=== PATIENT | male | born 1960 | race Caucasian/White ===

== ENCOUNTER → 2020-02-08 08:58 | Outpatient (BNVA) | payer OTHER, SELFPAY | PROVIDERS: PCP Physician Assistant; Visit Provider Family Medicine Adult Medicine | DX: Z76.89 Persons encountering health services in other specified circumstances (principal) ==

== ENCOUNTER → 2020-03-21 08:26 | Outpatient (BNVA) | payer OTHER, SELFPAY | PROVIDERS: PCP Physician Assistant; Visit Provider Family Medicine Adult Medicine | DX: Z76.89 Persons encountering health services in other specified circumstances (principal) ==

== ENCOUNTER → 2020-05-04 08:30 | Outpatient (BNVA) | payer OTHER, SELFPAY | PROVIDERS: PCP Physician Assistant; Visit Provider Family Medicine Adult Medicine | DX: M19.012 Primary osteoarthritis, left shoulder (principal); M19.011 Primary osteoarthritis, right shoulder ==

== ENCOUNTER → 2020-05-29 14:35 | Outpatient (BNVA) | payer OTHER, SELFPAY | PROVIDERS: PCP Physician Assistant; Visit Provider Nurse Practitioner Family ==

== ENCOUNTER 2020-06-01 06:04 | Outpatient (REF) | payer OTHER, SELFPAY ==
[2020-06-01 07:24] LABS: Hematocrit 43.3 % (42-52); Hemoglobin 15.4 g/dl (14.0-18.0); Mean Corpuscular HGB Conc 35.6 g/dl (31.0-36.0); Mean Corpuscular Hemoglobin 34.5 pg (27.0-33.0); Mean Corpuscular Volume 96.9 fL (80-98); Mean Platelet Volume 11.5 fL (9.4-12.4); Platelet Count 205 X10*3/uL (160-400); Red Blood Count 4.47 X10*6/uL (4.60-5.80); Red Cell Distribution Width 12.9 % (11.0-16.0); White Blood Count 6.4 X10*3/uL (4.8-10.8)
[2020-06-01 08:02] LABS: Alanine Aminotransferase 40 U/L (0-40); Albumin Level 4.6 g/dL (3.5-5.0); Alkaline Phosphatase 81 U/L (39-117); Anion Gap 10 (12-20); Aspartate Amino Transferase 39 U/L (5-37); Bilirubin Total 0.9 mg/dL (0.0-1.0); Blood Urea Nitrogen 19 mg/dL (9-16); Calcium 9.5 mg/dL (8.4-10.2); Carbon Dioxide 28 mmol/L (22-29); Chloride 104 mmol/L (96-108); Cholesterol 177 mg/dL; Estimated Glomerular Filt Rate 43; Glucose Fasting 102 mg/dL (60-99); HDL Cholesterol 37 mg/dL; LDL Cholesterol Calculated 102 mg/dl; Potassium 4.4 mmol/L (3.3-5.1); Sodium 138 mmol/L (135-145); Total Protein 6.9 g/dL (6.5-8.0); Triglycerides 194 mg/dL
[2020-06-01 08:03] LABS: Microalbum/Creatinine Ratio Ur 6.1 ug/mg cr
[2020-06-01 08:16] LABS: Prostate Specific Antigen Scr 1.68 ng/mL (<0.05-4.0); TSH reflex Free T4 0.82 uIU/mL (0.32-4.0)
[2020-06-01 09:23] LABS: Estimated Average Glucose 94 mg/dL; Hemoglobin A1c % 4.9 %
== END 2020-06-01 06:05 | disposition home or self-care (01) ==
LOC: HO.LAB 06:04
PROVIDERS: PCP Physician Assistant; Visit Provider Physician Assistant
DX: I10 Essential (primary) hypertension (principal); E78.2 Mixed hyperlipidemia; Z12.5 Encounter for screening for malignant neoplasm of prostate
CPT/HCPCS: 36415; 80053; 80061; 82043; 83036; 84153; 84443; 85027

== ENCOUNTER → 2020-06-08 08:08 | Outpatient (BNVA) | payer OTHER, SELFPAY | PROVIDERS: PCP Physician Assistant; Visit Provider Family Medicine Adult Medicine | DX: M19.012 Primary osteoarthritis, left shoulder (principal); M19.011 Primary osteoarthritis, right shoulder ==

== ENCOUNTER 2020-06-27 07:58 | Day surgery (SDC) | payer OTHER, SELFPAY ==
--- NOTE | 2020-06-23 14:07 | HO.ANESPROP2 ---
Documented by User: Sanaz Harrell 06/23/20 14:09 HPI - Anesthesia Eval Consult details Narrative: 59yo M for Colonoscopy PMFSH Active Problems Active Problems: All Active Problems (Updated 06/21/20 @ 12:55 by Candie Iqbal) CEFERINO (generalized anxiety disorder) (Acute) HTN (hypertension) (Acute) Annual physical exam (Acute) HLD (hyperlipidemia) (Acute) Colon cancer screening (Acute) Arthritis of left shoulder region (Acute) Arthritis of right shoulder region (Acute) Past Medical History Medical History Anxiety Arthritis Arthritis of left shoulder region Arthritis of right shoulder region Elevated cholesterol Hx of renal cell cancer Family History Family History (Updated 05/29/20 @ 14:39 by ELIECER Cantu) Father Diabetes Heart problem Mother No problems noted. Paternal Grandfather Myocardial infarction Surgical History Surgical History History of left inguinal hernia repair History of nephrectomy History of shoulder surgery History of shoulder surgery History of vasectomy Hx of colonoscopy (~2010) Social History Social History (Updated 05/29/20 @ 14:40 by ELIECER Cantu) Alcohol intake: current Alcohol intake frequency: a few times a month Smoking Status: Current some day smoker Years Smoked: occasional cigar Use of substances other than those prescribed or required for medical reasons: No Advance Directives: Yes Advance Directives Information Provided: Yes Advance Directives on File: No Advance Directives Date on File: 06/27/20 Current occupational status: employed Current occupation: [email or web address] Allergies Allergy/AdvReac Type Severity Reaction Status Date / Time Penicillins [PENICILLINS] Allergy Intermediate RASH Verified 06/27/20 08:18 Home Medications Medication Instructions Recorded Confirmed Last Taken Type atorvastatin 80 mg tablet mg PO 02/08/20 05/10/20 Unknown History diphth,pertus(acell),tetanus 2.5 ml IM 02/08/20 05/10/20 Unknown History Lf unit-8 mcg-5 Lf/0.5mL IM syringe flu vacc [id number] 6mos up(PF) ml IM 02/08/20 05/10/20 Unknown History methotrexate sodium 2.5 mg tablet 20 mg PO QWEEK 02/08/20 06/21/20 Unknown History Exam Exam Date and Time: June 23, 2020 1407 Pertinent Lab Results Pertinent Lab Results: Laboratory Tests 06/01/20 06/01/20 06:18 06:18 WBC 6.4 Hgb 15.4 Hct 43.3 Plt Count 205 Sodium 138 Potassium 4.4 Chloride 104 Carbon Dioxide 28 BUN 19 H Creatinine 1.66 H Assessment and Plan Assessment Anesthesia Assessment: Chart Reviewed Documented by User: Keisha Anti 06/27/20 09:31 [facility] Past Medical History Medical History Anxiety Arthritis Arthritis of left shoulder region Arthritis of right shoulder region Elevated cholesterol Hx of renal cell cancer Family History Family History (Updated 05/29/20 @ 14:39 by ELIECER Cantu) Father Diabetes Heart problem Mother No problems noted. Paternal Grandfather Myocardial infarction Surgical History Surgical History History of left inguinal hernia repair History of nephrectomy History of shoulder surgery History of shoulder surgery History of vasectomy Hx of colonoscopy (~2010) Social History Social History (Updated 05/29/20 @ 14:40 by ELIECER Cantu) Alcohol intake: current Alcohol intake frequency: a few times a month Smoking Status: Current some day smoker Years Smoked: occasional cigar Use of substances other than those prescribed or required for medical reasons: No Advance Directives: Yes Advance Directives Information Provided: Yes Advance Directives on File: No Advance Directives Date on File: 06/27/20 Current occupational status: employed Current occupation: [email or web address] Allergies Allergy/AdvReac Type Severity Reaction Status Date / Time Penicillins [PENICILLINS] Allergy Intermediate RASH Verified 06/27/20 08:18 Home Medications Medication Instructions Recorded Confirmed Last Taken Type atorvastatin 80 mg tablet mg PO 02/08/20 05/10/20 Unknown History diphth,pertus(acell),tetanus 2.5 ml IM 02/08/20 05/10/20 Unknown History Lf unit-8 mcg-5 Lf/0.5mL IM syringe flu vacc [id number] 6mos up(PF) ml IM 02/08/20 05/10/20 Unknown History methotrexate sodium 2.5 mg tablet 20 mg PO QWEEK 02/08/20 06/21/20 Unknown History Exam Airway Mallampati Class: II TM Dist: >3cm Neck ROM: Full Loose/Missing/Broken Teeth: No Heart: RRR Lungs: CTA Assessment and Plan Assessment Anesthesia Assessment: Anesthesia Plan Discussed and Chart Reviewed Final Anesthetic Review NPO: Yes ASA Class: II Final Preanesthetic Review: Meds/Allgs Chart Reviewed, Consent Obtained/Reviewed and Anes Risks/Benef Reviewed Patient Risk: Low Procedure Risk: Low Anesthetic Plan Anesthetic Plan: MAC: Disposition: Standard PACU
[2020-06-27 08:13] VITALS: BMI 31.1
[2020-06-27 08:59] VITALS: BP 124/78; PULSE 88; RESP 16; TEMP 36.4; O2SAT 97
[2020-06-27] MEDS: Lactated Ringers 1,000 ML 100 ML IVCONT (09:16)
--- NOTE | 2020-06-27 09:24 | MHC.SHP ---
Pre-Procedural Eval Section B Chief Complaint: Screening Details of Present Illness: COLON CANCER SCREENING Relevant Family History (Specify if Yes): No Relevant Social History: None Present Medications: see Short Stay Collaborative assessment Medical History: Significant History (RENAL CA, HX NEPHROLITHIASIS-R) History of Previous Operations: Relevant previous surgery/procedure and date(s) (NEPHRECTOMY LEFT--6 YEARS AGO, RENAL CA, ) Allergies: Allergies Allergy/AdvReac Type Severity Reaction Status Date / Time Penicillins [PENICILLINS] Allergy Intermediate RASH Verified 06/27/20 08:18 Review of Systems Sugical H&P ROS: Negative: Constitution, Cardiovascular, Respiratory, Neurological, Psychiatric, Allergic/Immunologic, Gastrointestinal, Musculoskeletal and Endocrine and Yes, Specify: Genitourinary (SEE ABOVE) Exam Surgical H&P Exam: Normal: HEENT, Normal: Heart, Normal: Lungs, Normal: Extremities, Normal: Abdomen, Normal: Skin and Normal: Neurological Plan Diagnosis/Plan: Unchanged I have reviewed the history and physical and performed a pertinent physical examination on my patient. No changes have occurred unless specified.YES
--- NOTE | 2020-06-27 10:10 | MHC.SHP ---
Pre-Procedural Eval Section A The patient is an INPATIENT: No Changes since office visit: No Cold of Flu in the past 2 weeks, No New Medical Problems, No Changes in Medication and No Patient answered all questions The History & Physical has been completed within 30 days and I have reviewed it.: Yes Section B Chief Complaint: Screening Allergies: Allergies Allergy/AdvReac Type Severity Reaction Status Date / Time Penicillins [PENICILLINS] Allergy Intermediate RASH Verified 06/27/20 08:18 Plan I have reviewed the history and physical and performed a pertinent physical examination on my patient. No changes have occurred unless specified.
[2020-06-27 10:13] VITALS: BP 105/62; PULSE 69; RESP 18; TEMP 36.3; O2SAT 100
--- NOTE | 2020-06-27 10:13 | PM.OP ---
Brief Operative Note Date of Service: 06/27/20 Pre-op diagnosis: Colon cancer screening Post-op diagnosis: other (Normal colon, 1-2 + Internal Hemorrhoids) Procedure: COLONOSCOPY Implants: NONE Surgeon: Ines Lopez MD Anesthesia: MAC (MD LACEY) Estimated blood loss (mL): 0 Pathology: none sent Condition: stable Disposition: PACU
--- NOTE | 2020-06-27 10:25 | W.PM.OPN ---
Operative Note Operative Note Date of Service: 06/27/20 Narrative: Pre-op diagnosis: Colon cancer screening Post-op diagnosis: other (Normal colon, 1-2 + Internal Hemorrhoids) Procedure: COLONOSCOPY Implants: NONE Surgeon: Ines Lopez MD Anesthesia: MAC (MD LACEY) FINDINGS: KATHLEEN: TONE NORMAL, PROSTATE--ASYMETRICAL-Right lobe slight increase in size. no clear nodularity-soft, non tender. Adult slim colonoscope introduced with no difficulty. Advanced through sigmoid, descending, transverse colon. As I passed through hepatic flexure there was looping of the scope, extrinsic pressure was applied and scope entered into the cecum. Appendiceal orifice and ileocecal valve were seen. PREP: Good but increased residual fluid-1000cc flush and suctioning done with good visualization of the mucosa. No lesions were seen. ARV was clear. 1-2+ Internal Hemorrhoids were noted. Estimated blood loss (mL): 0 Pathology: none sent Condition: stable Disposition: PACU PLAN: REPEAT SCREENING IN 10 YEARS DUE TO ASYMETRY OF PROSTATE SUGGEST ON HIS NEXT VISIT TO UROLOGIST HAVE THEM RECHECK HIS PROSTATE.
[2020-06-27 10:26] VITALS: BP 105/66; PULSE 81; RESP 18; O2SAT 99
[2020-06-27 10:38] VITALS: PULSE 80; RESP 18; O2SAT 99
== END 2020-06-27 11:12 | disposition home or self-care (01) ==
PROVIDERS: PCP Physician Assistant; Visit Provider Internal Medicine Gastroenterology
PROC: 0DJD8ZZ Inspection of Lower Intestinal Tract, Via Natural or Artificial Opening Endoscopic (ICD-10-PCS; CPT 45378; principal; 2020-06-27 09:10)
DX: Z12.11 Encounter for screening for malignant neoplasm of colon (principal); K64.8 Other hemorrhoids; Z85.528 Personal history of other malignant neoplasm of kidney; Z90.5 Acquired absence of kidney; Z88.0 Allergy status to penicillin; F17.290 Nicotine dependence, other tobacco product, uncomplicated; Z79.899 Other long term (current) drug therapy
CPT/HCPCS: 45378

== ENCOUNTER → 2020-07-25 08:29 | Outpatient (BNVA) | payer OTHER, SELFPAY | PROVIDERS: PCP Physician Assistant; Visit Provider Family Medicine Adult Medicine | DX: M19.012 Primary osteoarthritis, left shoulder (principal); M19.011 Primary osteoarthritis, right shoulder ==

== ENCOUNTER → 2020-09-21 08:06 | Outpatient (BNVA) | payer OTHER, SELFPAY | PROVIDERS: PCP Physician Assistant; Visit Provider Family Medicine Adult Medicine | DX: M19.012 Primary osteoarthritis, left shoulder (principal); M19.011 Primary osteoarthritis, right shoulder ==

== ENCOUNTER 2020-11-13 09:44 | Outpatient (REF) | payer OTHER, SELFPAY ==
--- NOTE | ~2020-11-13 | XR_ITS ---
EXAMINATION: XR CHEST CLINICAL INFORMATION: Cough, shortness of breath and wheezing COMPARISON: None TECHNIQUE: 2 views of the chest were obtained. FINDINGS: The cardiac and mediastinal contours are normal. The lungs are clear. There is no pleural effusion or pneumothorax. There are degenerative changes of the spine. XR/XR chest 2V IMPRESSION: No evidence for acute disease in the chest.
== END 2020-11-13 09:45 | disposition home or self-care (01) ==
LOC: HO.HMGCX 09:44
PROVIDERS: PCP Physician Assistant; Visit Provider Hospitalist
DX: Z13.89 Encounter for screening for other disorder (principal)
CPT/HCPCS: 71046

== ENCOUNTER 2021-07-12 06:00 | Outpatient (REF) | payer OTHER, SELFPAY ==
--- NOTE | ~2021-07-12 | XR_ITS ---
EXAMINATION: XR CHEST CLINICAL INFORMATION: Acute pulmonary edema. COMPARISON: 11/13/2020 TECHNIQUE: 2 views of the chest were obtained. FINDINGS: No significant abnormality is noted involving the heart, lungs, mediastinum, bony thorax or soft tissues. Status post median sternotomy. There is spurring of the thoracic spine. XR/XR chest 2V IMPRESSION: No acute disease.
[2021-07-12 07:23] LABS: Hematocrit 39.8 % (42.0-52.0); Hemoglobin 13.1 g/dl (14.0-18.0); Mean Corpuscular HGB Conc 32.9 g/dl (31.0-36.0); Mean Corpuscular Volume 94.3 fL (80.0-98.0); Mean Platelet Volume 11.2 fL (9.4-12.4); Platelet Count 177 X10*3/uL (160-400); Red Blood Count 4.22 X10*6/uL (4.60-5.80); Red Cell Distribution Width 13.8 % (11.0-16.0)
[2021-07-12 07:48] LABS: Alanine Aminotransferase 30 U/L (0-40); Albumin Level 4.1 g/dL (3.5-5.0); Alkaline Phosphatase 108 U/L (39-117); Anion Gap 11 (12-20); Aspartate Amino Transferase 33 U/L (5-37); Bilirubin Total 0.5 mg/dL (0.0-1.0); Blood Urea Nitrogen 13 mg/dL (9-16); Calcium 9.8 mg/dL (8.4-10.2); Carbon Dioxide 28 mmol/L (22-29); Chloride 107 mmol/L (96-108); Cholesterol 164 mg/dL; Estimated Glomerular Filt Rate 49; Glucose Fasting 105 mg/dL (60-99); HDL Cholesterol 37 mg/dL; LDL Cholesterol Calculated 101 mg/dl; Potassium 4.6 mmol/L (3.3-5.1); Sodium 141 mmol/L (135-145); Total Protein 6.7 g/dL (6.5-8.0); Triglycerides 134 mg/dL
[2021-07-12 08:11] LABS: Prostate Specific Antigen Scr 0.94 ng/mL (<0.05-4.0); TSH reflex Free T4 0.99 uIU/mL (0.32-4.0)
[2021-07-12 10:41] LABS: Creatinine Urine 163.72 mg/dL
== END 2021-07-12 06:01 | disposition home or self-care (01) ==
LOC: HO.LAB 06:00
PROVIDERS: PCP Physician Assistant; Visit Provider Physician Assistant
DX: J81.0 Acute pulmonary edema (principal); I25.118 Atherosclerotic heart disease of native coronary artery with other forms of angina pectoris; I10 Essential (primary) hypertension; E78.2 Mixed hyperlipidemia; Z12.5 Encounter for screening for malignant neoplasm of prostate
CPT/HCPCS: 36415; 71046; 80053; 80061; 82043; 84153; 84443; 85027

== ENCOUNTER 2022-03-04 10:04 | Emergency (ER) | payer OTHER, SELFPAY ==
[2022-03-04 10:09] VITALS: BP 116/78; PULSE 77; RESP 18; TEMP 36.7; O2SAT 99; BMI 28.8
[2022-03-04 10:55] LABS: MANUAL DIFF FLAG NO
[2022-03-04 10:58] LABS: Basophils Percent Auto 0.4 % (0-2); Eosinophils Absolute Auto 0.2 X10*3/uL (0.0-0.4); Eosinophils Percent Auto 2.3 % (0-4); Hematocrit 32.1 % (42.0-52.0); Hemoglobin 10.7 g/dl (14.0-18.0); Imm Gran Abs Auto 0.11 X10*3/uL (0.00-0.03); Imm Gran Pct Auto 1.4 % (0.0-0.4); Lymphocytes Absolute Auto 1.6 X10*3/uL (1.2-4.9); Lymphocytes Percent Auto 20.5 % (20-40); Mean Corpuscular HGB Conc 33.3 g/dl (31.0-36.0); Mean Corpuscular Hemoglobin 30.9 pg (27.0-33.0); Mean Corpuscular Volume 92.8 fL (80.0-98.0); Mean Platelet Volume 10.5 fL (9.4-12.4); Monocytes Percent Auto 12.2 % (2-11); Neutrophils Absolute Auto 4.9 x10*3/uL (2.0-8.3); Neutrophils Percent Auto 63.2 % (45-73); Platelet Count 269 X10*3/uL (160-400); Red Blood Count 3.46 X10*6/uL (4.60-5.80); Red Cell Distribution Width 15.4 % (11.0-16.0); White Blood Count 7.8 X10*3/uL (4.8-10.8)
--- OUTSIDE RECORDS SUMMARY | 2022-03-04 10:59 | XMS_ITS | Continuity of Care Document ---
:1960 Author Organization [facility] Address [address] [place] [id number]- Care Team Providers Name Role Phone Franklin Thao Primary Care Physician Encounter [facility] Date(s): 03/01/19 - 03/01/[address] [address]- [facility] Attending Physician: Joshua Perez MD Allergies, Adverse Reactions, Alerts Substance Reaction Severity Status penicillins rash Active Medications CoQ10 = 300 mg, By Mouth, Daily, 0 Refills, Maintenance, 11/18/14 9:20:07 Start Date: 11/18/14 Status: OrderedFolic Acid Tablet 1 mg, By Mouth, Daily, Maintenance, 11/18/14 9:18:07 Start Date: 11/18/14 Status: Orderedmethotrexate 10 mg oral tablet 1 tablet = 10 mg, By Mouth, 2 times a day, once a week on tuesdays, 0 Refills, Maintenance, 159:17:07 Start Date: 11/18/14 Status: OrderedPercocet-10/325 oral tablet 1 tablet, By Mouth, 3 times a day, 0 Refills, Maintenance, 11/18/14 9:19:21 Start Date: 11/18/14 Status: Ordered Social History Social History Type Response Smoking Status Current some day smoker; Oth er: cigars on occasion; entered on: 04/15/16 Sex
--- OUTSIDE RECORDS SUMMARY | 2022-03-04 11:00 | XMS_ITS | Continuity of Care Document ---
:1960 Author Organization [facility] Address [address] [place] [id number]- Care Team Providers Name Role Phone Franklin Thao Primary Care Physician Encounter [facility] Date(s): 06/15/21 - 06/22/21 [facility] [address] [place] [address]- Attending Physician: Moses Banuelos MD Referring Physician: Alexis AGUILAR, Eran Gutierrez Allergies, Adverse Reactions, Alerts Substance Reaction Severity Status penicillins rash Active Medications amiodarone 200 mg oral tablet 200 mg, 1, tablet, By Mouth, Daily, # 30 tablet, Refills 0, Tot. Refills 0, Maintenance, 06/04/21 10:34:00 EDT, Route to Pharmacy Electronically, [facility], Partial fill upon patient request if the prescription is for a schedule II opio... Start Date: 06/04/21 Stop Date: 07/04/21 Status: Orderedaspirin 81 mg oral delayed release tablet 81 mg, 1, tablet, By Mouth, Daily, # 90 tablet, Refills 3, Tot. Refills 3, Maintenance, 04/09/21 9:45:00 EST, Route to Pharmacy Electronically, [facility], Partial fill upon patient request if the prescription is for a schedule II opioid nehemiah... Start Date: 04/09/21 Status: Orderedatorvastatin 80 mg oral tablet 1 tablet = 80 mg, By Mouth, Daily at bedtime, # 30 tablet, 0 Refills, Maintenance, 06/04/21 10:35:00EDT, Tablet, [facility], Partial fill upon patient request if the prescription is for a schedule II opioid drug., 183, cm, 06/04/21 7:31... Start Date: 06/04/21 Status: [id number] = 300 mg, By Mouth, Daily, 0 Refills, Maintenance, 11/18/14 9:20:07 Start Date: 11/18/14 Status: OrderedFolic Acid Tablet 1 mg, By Mouth, Daily, Maintenance, 11/18/14 9:18:07 Start Date: 11/18/14 Status: OrderedGlucosamine = 1,500 mg, By Mouth, Daily, 0 Refills, Maintenance, 05/21/21 15:42:00 EST, Partial fill upon patient request if the prescription is for a schedule II opioid drug. Start Date: 05/21/21 Status: Orderedmethotrexate 2.5 mg oral tablet See Instructions, Take 3 tablets (7.5mg) on Friday AM and 3 tablets (7.5mg) on Friday PM to equal 15mg total. In summer, increase to 10mg on Friday AM and 10mg on Friday PM., 0 Refills, Maintenance, 05/14/21 15:30:00 EST, Tablet, Partial fill upon p... Start Date: 05/14/21 Status: OrderedoxyCODONE 5 mg oral tablet 10 mg, 2, tablet, By Mouth, Every 6 hours, PRN, # 10 tablet, Refills 0, Tot. Refills 0, Maintenance,as needed for pain, 06/09/21 23:32:00 EDT, Route to Pharmacy Electronically, [facility]/pharmacy #[id number], Partial fill upon patient request if the prescription... Start Date: 06/09/21 Status: OrderedPlavix 75 mg oral tablet 75 mg, 1, tablet, By Mouth, Daily, # 30 tablet, Refills 0, Tot. Refills 0, Maintenance, 06/04/21 10:34:00 EDT, Route to Pharmacy Electronically, [facility], Partial fill upon patient request if the prescription is for a schedule II opioi... Start Date: 06/04/21 Status: OrderedToprol XL 50 mg oral tablet, extended release 50 mg, 1, tablet, By Mouth, Daily, # 30 tablet, Refills 0, Tot. Refills 0, Maintenance, 06/04/21 10:33:00 EDT, Route to Pharmacy Electronically, [facility], Partial fill upon patient request if the prescription is for a schedule II opioi... Start Date: 06/04/21 Status: Ordered Vital Signs Most recent to oldest [Reference Range]: 1 Height 183 cm (06/15/21 9:02 AM) Weight 98.5 kg (06/15/21 9:02 AM) Oxygen Saturation [94-100 %] 98 % (06/15/21 9:02 AM) Pulse Rate [55-90 bpm] 68 bpm (06/15/21 9:02 AM) Body Mass Index [18.5-24.99] 29.41 *H* (06/15/21 9:02 AM) Blood Pressure [90-138/55-84 mm Hg] 112/64 mm Hg (06/15/21 9:02 AM) Respiratory Rate [16-30 br/min] 18 br/min (06/15/21 9:02 AM) Mode of Delivery (Oxygen) Room air (06/15/21 9:02 AM) Blood pressure sites Arm, right (06/15/21 9:02 AM) Weight Obtained Via Patient/family stated (06/15/21 9:02 AM) Social History Social History Type Response Smoking Status Current some day smoker; Oth er: cigars on occasion; entered on: 04/15/16 Sex
--- OUTSIDE RECORDS SUMMARY | 2022-03-04 11:00 | XMS_ITS | Continuity of Care Document ---
:1960 Author Organization [facility] Address [address] [place] [address]- Care Team Providers Name Role Phone Franklin Thao Primary Care Physician Encounter [facility] [id number] Date(s): 04/24/21 - 05/24/21 [facility] [address] [place] [address]- Allergies, Adverse Reactions, Alerts Substance Reaction Severity Status penicillins rash Active Medications aspirin 81 mg oral delayed release tablet 81 mg, 1, tablet, By Mouth, Daily, # 90 tablet, Refills 3, Tot. Refills 3, Maintenance, 04/09/21 9:45:00 EST, Route to Pharmacy Electronically, [facility], Partial fill upon patient request if the prescription is for a schedule II opioid nehemiah... Start Date: 04/09/21 Status: Orderedatorvastatin 80 mg oral tablet 0.5 tablet = 40 mg, By Mouth, Daily, # 45 tablet, 3 Refills, Maintenance, 04/09/21 9:45:00 EST, [facility], 183, cm, 02/15/20 8:43:00 EST, Height, 110.9, kg, 02/15/20 8:43:00 EST, Dry Weight Start Date: 04/09/21 Status: [id number] = 300 mg, By Mouth, Daily, 0 [...] fill upon p... Start Date: 05/14/21 Status: Orderedmetoprolol 25 mg oral tablet, extended release 25 mg, 1, tablet, By Mouth, Daily, # 30 tablet, Refills 11, Tot. Refills 11, Maintenance, 05/11/21 10:07:00 EST, Route to Pharmacy Electronically, [facility]/pharmacy #[id number], Partial fill upon patient request if the prescription is for a schedule II opioid Start Date: 05/11/21 Status: Ordered Problem List Condition Effective Dates Status Health Status Informant Obese class I(Confirmed) Active Social History Social History Type Response Smoking Status Current some day smoker; Oth er: cigars on occasion; entered on: 04/15/16 Sex Male
--- OUTSIDE RECORDS SUMMARY | 2022-03-04 11:00 | XMS_ITS | Continuity of Care Document ---
:1960 Author Organization [facility] Address [address] [place] [id number]- Care Team Providers Name Role Phone Franklin Thao Primary Care Physician Encounter [facility] Date(s): 03/01/19 - 03/01/[address] [address]- [facility] Attending Physician: Vamshi Vazquez MD Allergies, Adverse Reactions, Alerts Substance Reaction [...]
--- OUTSIDE RECORDS SUMMARY | 2022-03-04 11:00 | XMS_ITS | Continuity of Care Document ---
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 fracture. Orbits and orbital hummel: No fracture of the orbital hummel. No intraorbital hematoma. Maxilla and alveolus: No fracture. Pterygoid plates: No fracture. Visualized parapharyngeal spaces: Symmetric without suspicious or acute abnormality. Zygomatic arches: No fracture. Mandible: The portions included on the exam are normal. No fracture or dislocation. CERVICAL SPINE: No fracture. No acute osseous abnormalities. Normal alignment. No locked or perched facet. Mild multilevel degenerative disc space narrowing and end plate irregularity. OTHER BONES: No acute abnormality. CERVICAL SOFT TISSUES AND LUNG APICES: Normal soft tissues. Visualized lung apices are clear. IMPRESSION: No acute osseous abnormality of the head, face, or cervical spine. Large scalp hematoma involving the left frontal bone, smaller hematoma involving the left frontal orbital region. I have personally reviewed the images and I agree with this report. WSN: [id number] Ordering Physician: Nayely Boland Dictated By: Prem[Radiology] Nataly AGUILAR Dictated Date/Time: 02/20/22 7:09 am Reviewed By: Jennifer Gonzalez MD Signed By: Jennifer Gonzalez MD Signed Date/Time: 02/20/22 7:14 am Transcribed By: PATSY Transcribed Date/Time: 02/20/22 3:[address] Abdomen and Pelvis W contrast IV [facility] , CIS S: TRANSCRIPatel Pedersen MD: VERIFY Prem[Radiology] Nataly AGUILAR: SIGN Event Display: Result: Authored Date: [id number] CT Chest W/ Contrast, CT Abd/Pelvis W/ IV Contrast Only INDICATION: Reason: Other:; Chest trauma, blunt; Clinical Question(s): Other:; Aortic hilar injury TECHNIQUE: Helical CT scan of the chest, abdomen, and pelvis with IV contrast, formatted in 3 planes. 100 cc of Omnipaque 300 was administered intravenously. This study was performed without oral contrast. Weight-based protocol was performed using automatic exposure control. CTDIvol Body: 17.30 mGy, DLP Body: 1345 mGy*cm. COMPARISON: None. FINDINGS: Side Laster view findings, lines and tubes: Endotracheal tube approximately 4.9 cm above the sergio. Enteric tube terminating at the GE junction. Central venous catheter present within the right femoral vein. Trachea and airways: Patent without evidence of tracheal or endobronchial lesion. Lungs and pleura: Groundglass opacity within the right upper lobe anterior segment. Bibasilar dependent groundglass and bandlike opacities likely representing atelectasis. Left upper lobe inferior lingular segment 0.7 cm nodule (image 48, series 205). No effusion or pneumothorax. Mediastinum and becky: No mass or hematoma. No mediastinal or hilar lymphadenopathy. No esophageal abnormality. No thyroid nodule large enough to warrant follow up. Heart: Heart is normal in size. No pericardial effusion. Severe coronary artery calcification. Coronary artery bypass changes. Aorta: Mild vascular calcification but no aneurysm. Pulmonary arteries: Normal caliber. Moderate respiratory motion artifact decreases sensitivity, but there is no evidence of pulmonary embolism on this study performed without angiographic technique. Chest wall soft tissues: No acute abnormality. Diaphragm: Intact. Liver: Normal in attenuation and morphology. No suspicious lesion. Gallbladder: No CT evidence of gallbladder pathology. Bile ducts: No biliary ductal dilation. Spleen: Normal in size. No traumatic injury. Pancreas: Minimal fat stranding at the pancreatic head and uncinate process. Adrenal glands: Likely postsurgical changes of the left adrenal gland. Unremarkable right adrenal. Kidneys and ureters: Status post left nephrectomy. A few small nodular densities noted in the left nephrectomy bed, some which may represent remnant vessels. No prior studies available for comparison. The right kidney and ureter are unremarkable. Bladder: No wall thickening or surrounding stranding. Reproductive organs: Unremarkable. Stomach, small bowel, and large bowel: Moderate stool retention. Otherwise, unremarkable small and large bowel. Appendix: Normal appendix. Peritoneum and retroperitoneum: Ill-defined fat stranding and increased thickness of the right hemidiaphragmatic lawrence in the periaortic region. Enlargement of the left psoas muscle likely representing intramuscular hematoma extending into the proximal iliac muscle. Scattered small foci of stranding wit hin the mesentery are suggestive of mild mesenteric injury (for example series 201 image 106, 110, 163, 187). No organized mesenteric or intraperitoneal hematoma. Paraspinal stranding likely representing hematoma surrounding the T10- T11 level and the T8 level. Lymph nodes: No enlarged lymph nodes. Blood vessels: Mild vascular calcifications but no aneurysm. No evidence of venous thrombosis. Abdominal and pelvic wall soft tissues: Extensive fat stranding of the mid anterior wall subcutaneous tissues. Left groin and proximal hip hematoma with maximum thickness 3.9 cm in the region of left groin and 2.1 cm in the lateral hip. There is hyperdensity within the hematoma (image 209, series 201)suggestive of active extravasation. Small hematoma in the proximal right thigh. Small amount of stranding, likely soft tissue contusion over the lateral right lower chest (series 201 image 77). Small bilateral fat-containing inguinal hernias. Small fat-containing umbilical hernia. Suspected hematoma surrounding the left antecubital fossa, which may be posttraumatic or related to IV placement. Bones: Transverse fracture through the inferior T10 vertebral body with distraction of the fracture fragments by approximately 0.8 cm. The fracture extends from the anterior cortex to the posterior cortex and extends into the intervertebral disc space. Streak artifact limits evaluation of spinal canal, however posterior disc bulge and facet arthropathy suggest at least moderate spinal canal stenosis at this level. Minimal anterior wedge deformity at T11 vertebral body with a zone of tubular impaction suggestive of compression fracture. Fractures of the left transverse processes of L1-L5 vertebral bodies. Minimally displaced fracture of the left posterior 11th rib. Minimally displaced right anterior fifth rib fracture. Mild asymmetric widening of the left sacroiliac joint with respect to the right, without clear cortical discontinuity (series 201 image 175). IMPRESSION: 1. Transverse fracture through the T10 vertebral body extending from the anterior to the posterior cortex and involving the intervertebral disc space with surrounding paraspinal hematoma and probable narrowing of the spinal canal at this level. Streak artifact limits density evaluation. Further evaluation with MR spine is recommended. 2. Large left groin, left hip hematoma with active extravasation. Additional soft tissue contusions/hematomas without active extravasation moderate to large extending from left to right across the anterior mid abdomen and small in the right lateral lower chest. 3. Left transverse process fractures of L1-L5 with associated enlargement of the left psoas muscle, likely representing retroperitoneal hematoma. 4. Fractures of the posterior right 11th rib and anterior right fifth rib. 5. Minimal anterior wedge deformity of T11 vertebral body. 6. Asymmetric widening of the left sacroiliac joint, concerning for partial separation without clearcortical discontinuity. Pubic symphysis appears well aligned. 7. Asymmetric thickening and stranding of the right hemidiaphragmatic lawrence, suspicious for diaphragmatic injury. 8. Scattered foci of stranding within the mesentery suspicious for mild mesenteric contusion. No large hematoma at this time. 9. Ground glass opacity within the right upper lobe anterior segment likely represents pulmonary contusion/hemorrhage. 10. Stranding in the left upper extremity surrounding the left antecubital fossa, which may be related to IV placement or trauma. Correlation with left elbow pain/tenderness is recommended and radiography could be considered. 11. Enteric tube terminating at the GE junction with a fluid distended stomach. Consider advancementby 10 cm. 12. Left upper lobe lingular segment 0.7 cm nodule. If low risk for malignancy, follow-up CT at 6-12months, then consider CT at 18-24 months and if unchanged no further follow-up. If high risk for malignancy, follow-up CT at 6-12 months, then CT at 18-24 months and if unchanged no further followup per Guidelines for Management of Incidental Pulmonary Nodules Detected on CT Images: From the Fleischner Society 2017. Preliminary results were discussed via telephone by Dr. Amaro with Dr. Ryan on 02/20/2022 4:08 AM. The final impression above - including the additional findings of widening of the left sacroiliac joint, concern for mesenteric injury, left antecubital fossa stranding, and more explicit concern for right hemidiaphragmatic injury - was relayed to Dr. Janey Treviño by Dr. Patel Disla over the phone on 02/20/2022 7:51 AM. I have personally reviewed the images and I agree with this report. WSN: [id number] Ordering Physician: Nayely Boland Dictated By: Prem[Radiology] Nataly AGUILAR Dictated Date/Time: 02/20/22 8:04 am Reviewed By: Patel Disla MD Signed By: Patel Disla MD Signed Date/Time: 02/20/22 8:09 am Transcribed By: PATSY Transcribed Date/Time: 02/20/22 5:[address] Chest W contrast IV [facility] , CIS S: TRANSCRIPatel Pedersen MD: VERIFY Prem[Radiology] , inder: SIGN Event Display: Result: Authored Date: [id number] CT Chest W/ Contrast, CT Abd/Pelvis W/ IV Contrast Only INDICATION: Reason: Other:; Chest trauma, blunt; Clinical Question(s): Other:; Aortic hilar injury TECHNIQUE: Helical CT scan of the chest, abdomen, and pelvis with IV contrast, formatted in 3 planes. 100 cc of Omnipaque 300 was administered intravenously. This study was performed without oral contrast. Weight-based protocol was performed using automatic exposure control. CTDIvol Body: 17.30 mGy, DLP Body: 1345 mGy*cm. COMPARISON: None. FINDINGS: Side Laster view findings, lines and tubes: Endotracheal tube approximately 4.9 cm above the sergio. Enteric tube terminating at the GE junction. Central venous catheter present within the right femoral vein. Trachea and airways: Patent without evidence of tracheal or endobronchial lesion. Lungs and pleura: Groundglass opacity within the right upper lobe anterior segment. Bibasilar dependent groundglass and bandlike opacities likely representing atelectasis. Left upper lobe inferior lingular segment 0.7 cm nodule (image 48, series 205). No effusion or pneumothorax. Mediastinum and becky: No mass or hematoma. No mediastinal or hilar lymphadenopathy. No esophageal abnormality. No thyroid nodule large enough to warrant follow up. Heart: Heart is normal in size. No pericardial effusion. Severe coronary artery calcification. Coronary artery bypass changes. Aorta: Mild vascular calcification but no aneurysm. Pulmonary arteries: Normal caliber. Moderate respiratory motion artifact decreases sensitivity, but there is no evidence of pulmonary embolism on this study performed without angiographic technique. Chest wall soft tissues: No acute abnormality. Diaphragm: Intact. Liver: Normal in attenuation and morphology. No suspicious lesion. Gallbladder: No CT evidence of gallbladder pathology. Bile ducts: No biliary ductal dilation. Spleen: Normal in size. No traumatic injury. Pancreas: Minimal fat stranding at the pancreatic head and uncinate process. Adrenal glands: Likely postsurgical changes of the left adrenal gland. Unremarkable right adrenal. Kidneys and ureters: Status post left nephrectomy. A few small nodular densities noted in the left nephrectomy bed, some which may represent remnant vessels. No prior studies available for comparison. The right kidney and ureter are unremarkable. Bladder: No wall thickening or surrounding stranding. Reproductive organs: Unremarkable. Stomach, small bowel, and large bowel: Moderate stool retention. Otherwise, unremarkable small and large bowel. Appendix: Normal appendix. Peritoneum and retroperitoneum: Ill-defined fat stranding and increased thickness of the right hemidiaphragmatic lawrence in the periaortic region. Enlargement of the left psoas muscle likely representing intramuscular hematoma extending into the proximal iliac muscle. Scattered small foci of stranding wit hin the mesentery are suggestive of mild mesenteric injury (for example series 201 image 106, 110, 163, 187). No organized mesenteric or intraperitoneal hematoma. Paraspinal stranding likely representing hematoma surrounding the T10- T11 level and the T8 level. Lymph nodes: No enlarged lymph nodes. Blood vessels: Mild vascular calcifications but no aneurysm. No evidence of venous thrombosis. Abdominal and pelvic wall soft tissues: Extensive fat stranding of the mid anterior wall subcutaneous tissues. Left groin and proximal hip hematoma with maximum thickness 3.9 cm in the region of left groin and 2.1 cm in the lateral hip. There is hyperdensity within the hematoma (image 209, series 201)suggestive of active extravasation. Small hematoma in the proximal right thigh. Small amount of stranding, likely soft tissue contusion over the lateral right lower chest (series 201 image 77). Small bilateral fat-containing inguinal hernias. Small fat-containing umbilical hernia. Suspected hematoma surrounding the left antecubital fossa, which may be posttraumatic or related to IV placement. Bones: Transverse fracture through the inferior T10 vertebral body with distraction of the fracture fragments by approximately 0.8 cm. The fracture extends from the anterior cortex to the posterior cortex and extends into the intervertebral disc space. Streak artifact limits evaluation of spinal canal, however posterior disc bulge and facet arthropathy suggest at least moderate spinal canal stenosis at this level. Minimal anterior wedge deformity at T11 vertebral body with a zone of tubular impaction suggestive of compression fracture. Fractures of the left transverse processes of L1-L5 vertebral bodies. Minimally displaced fracture of the left posterior 11th rib. Minimally displaced right anterior fifth rib fracture. Mild asymmetric widening of the left sacroiliac joint with respect to the right, without clear cortical discontinuity (series 201 image 175). IMPRESSION: 1. Transverse fracture through the T10 vertebral body extending from the anterior to the posterior cortex and involving the intervertebral disc space with surrounding paraspinal hematoma and probable narrowing of the spinal canal at this level. Streak artifact limits density evaluation. Further evaluation with MR spine is recommended. 2. Large left groin, left hip hematoma with active extravasation. Additional soft tissue contusions/hematomas without active extravasation moderate to large extending from left to right across the anterior mid abdomen and small in the right lateral lower chest. 3. Left transverse process fractures of L1-L5 with associated enlargement of the left psoas muscle, likely representing retroperitoneal hematoma. 4. Fractures of the posterior right 11th rib and anterior right fifth rib. 5. Minimal anterior wedge deformity of T11 vertebral body. 6. Asymmetric widening of the left sacroiliac joint, concerning for partial separation without clearcortical discontinuity. Pubic symphysis appears well aligned. 7. Asymmetric thickening and stranding of the right hemidiaphragmatic lawrence, suspicious for diaphragmatic injury. 8. Scattered foci of stranding within the mesentery suspicious for mild mesenteric contusion. No large hematoma at this time. 9. Ground glass opacity within the right upper lobe anterior segment likely represents pulmonary contusion/hemorrhage. 10. Stranding in the left upper extremity surrounding the left antecubital fossa, which may be related to IV placement or trauma. Correlation with left elbow pain/tenderness is recommended and radiography could be considered. 11. Enteric tube terminating at the GE junction with a fluid distended stomach. Consider advancementby 10 cm. 12. Left upper lobe lingular segment 0.7 cm nodule. If low risk for malignancy, follow-up CT at 6-12months, then consider CT at 18-24 months and if unchanged no further follow-up. If high risk for malignancy, follow-up CT at 6-12 months, then CT at 18-24 months and if unchanged no further followup per Guidelines for Management of Incidental Pulmonary Nodules Detected on CT Images: From the Fleischner Society 2017. Preliminary results were discussed via telephone by Dr. Amaro with Dr. Ryan on 02/20/2022 4:08 AM. The final impression above - including the additional findings of widening of the left sacroiliac joint, concern for mesenteric injury, left antecubital fossa stranding, and more explicit concern for right hemidiaphragmatic injury - was relayed to Dr. Janey Treviño by Dr. Patel Disla over the phone on 02/20/2022 7:51 AM. I have personally reviewed the images and I agree with this report. WSN: [id number] Ordering Physician: Nayely Boland Dictated By: Prem[Radiology] Nataly AGUILAR Dictated Date/Time: 02/20/22 8:04 am Reviewed By: Patel Disla MD Signed By: Patel Disla MD Signed Date/Time: 02/20/22 8:09 am Transcribed By: PATSY Transcribed Date/Time: 02/20/22 5:29 am XR Pelvis 1 or 2 Views [facility] , CIS S: TRANSCAlvaro Loomis MD: VERIFY Event Display: Result: Authored Date: [id number] Pelvis 1 or 2 Views INDICATION/CLINICAL QUESTION: Reason: Other:; Clinical Question(s): Other:. / Other: COMPARISON: None.. TECHNIQUE: AP pelvis. FINDINGS: There is no fracture or focal lesion of the bony pelvis. The sacroiliac joints show no gross abnormality. There is no fracture in the visualized parts of the femurs. The hip joints are grossly normal. No concerning soft tissue abnormality. IMPRESSION: 1. No bone or joint abnormality seen. WSN: [id number] Ordering Physician: Nayely Boland Dictated By: Alvaro Gauthier MD Dictated Date/Time: 02/20/22 8:31 am Reviewed By: Alvaro Gauthier MD Signed By: Alvaro Gauthier MD Signed Date/Time: 02/20/22 8:31 am Transcribed By: PATSY Transcribed Date/Time: 02/20/22 8:31 am Portable XR Chest Views [facility] , CIS S: TRANSCRIBE Daniel Kay MD T: RAFAEL Neely MD, Faisal Quinn: VERIFY Event Display: Result: Authored Date: [id number] Chest Portable Clinical Question(s): Trauma. COMPARISON: Correlation is made with same day CT chest with contrast, 2:29 AM. FINDINGS: LINES AND TUBES: Endotracheal tube with tip 7 cm above the sergio. Enteric tube coursing through the esophagus, crossing the left hemidiaphragm, and the tip likely terminating at the GE junction. LUNGS AND PLEURA: Low lung volumes. Lungs are otherwise clear with no consolidation. No pleural effusion. No pneumothorax. HEART, MEDIASTINUM AND BECKY: Heart is normal in size. Normal mediastinal and hilar contour. BONES AND SOFT TISSUES: No acute abnormality. Status post median sternotomy. IMPRESSION: Support lines and tubes as described above. No radiographic evidence of acute abnormality. I have personally reviewed the images and I agree with this report. WSN: [id number] Ordering Physician: Nayely Boland Dictated By: Daniel Kay MD Dictated Date/Time: 02/20/22 8:43 am Reviewed By: Faisal Neely MD, V Signed By: Faisal Neely MD, V Signed Date/Time: 02/20/22 8:48 am Transcribed By: PATSY Transcribed Date/Time: 02/20/22 8:39 [facility] , CIS S: TRANSCRIBE Faisal Neely MD, V: VERIFY Event Display: Result: Authored Date: [id number] Chest Portable Reason: Tube Placement COMPARISON: 02/20/2022 at 1:34 AM. FINDINGS: LINES AND TUBES: Endotracheal tube and enteric tube remain in place unchanged. There is a cervical collar appearing. LUNGS AND PLEURA: Low lung volumes. Clear lungs. Normal pulmonary vascularity. No pleural effusion. No pneumothorax. HEART, MEDIASTINUM AND BECKY: Heart is normal in size. Normal mediastinal and hilar contour. Status post median sternotomy. BONES AND SOFT TISSUES: T10 fracture noted on a CT scan of the chest is not well seen on this examination. IMPRESSION: No significant interval change except for addition of a c-collar. WSN: [id number] Ordering Physician: Hero Price Dictated By: Faisal Neely MD, V Dictated Date/Time: 02/20/22 12:15 p Reviewed By: Faisal Neely MD, V Signed By: Faisal Neely MD, V Signed Date/Time: 02/20/22 12:15 pm Transcribed By: PATSY Transcribed Date/Time: 02/20/22 12:13 pmSPowerscribe , CIS S: TRANSCRIBE Cornelio Choudhary DO: SIGN Gracie Hooper MD: VERIFY Event Display: Result: Authored Date: [id number] Chest Portable Reason: Tube Placement COMPARISON: Same day radiographs FINDINGS: LINES AND TUBES: Endotracheal tube unchanged overlying the thoracic inlet. Enteric tube terminating below the field of view likely within the stomach. LUNGS AND PLEURA: Clear lungs. Normal pulmonary vascularity. No pleural effusion. No pneumothorax. HEART, MEDIASTINUM AND BECKY: Heart is normal in size. Normal mediastinal and hilar contour. BONES AND SOFT TISSUES: T10 fracture noted on same-day CT is less conspicuous on this examination. IMPRESSION: Stable examination. I have personally reviewed the images and I agree with this report. WSN: [id number] Ordering Physician: Nanette Min Dictated By: Cornelio Choudhary DO Dictated Date/Time: 02/20/22 1:36 pm Reviewed By: Gracie Hooper MD Signed By: Gracie Hooper MD Signed Date/Time: 02/20/22 1:41 pm Transcribed By: PATSY Transcribed Date/Time: 02/20/22 1:21 pm XR Knee - left 1 or 2 Views [facility] , CIS S: TRANSCRIBE Faisal Neely MD, V: VERIFY Event Display: Result: Authored Date: [id number] Knee 1 or 2 Views Left, 2 views Reason: Other:; Clinical Question(s): Fracture COMPARISON: None. FINDINGS: There is no evidence of acute or healing fracture, dislocation or bone lesion. No arthritic changes. No osteochondral defects or intra-articular loose bodies. There may be soft tissue swelling anterior to the patella. IMPRESSION: No acute osseous abnormality is seen involving the left knee. WSN: [id number] Ordering Physician: Nayely Boland Dictated By: Faisal Neely MD, V Dictated Date/Time: 02/20/22 10:10 a Reviewed By: Faisal Neely MD, V Signed By: Faisal Neely MD, V Signed Date/Time: 02/20/22 10:10 am Transcribed By: PATSY Transcribed Date/Time: 02/20/22 10:09 am XR Elbow - left GE 3 Views [facility] , CIS S: TRANSCRIBE Faisal Neely MD, V: VERIFY Event Display: Result: Authored Date: [id number] Elbow Min 3 Views Left, 3 views Reason: Other:; Clinical Question(s): Fracture COMPARISON: None. FINDINGS: No fracture or dislocation. No arthritic changes. There is a small enthesophyte related to the olecranon. No joint effusion. There is moderate sized soft tissue swelling and/or hematoma in the lateral aspect of the left elbow. IMPRESSION: No definite acute osseous abnormality is seen involving the left elbow. The images were reviewed with the Dr. Patel Disla who agrees with the above interpretation. WSN: [id number] Ordering Physician: Nayely Boland Dictated By: Faisal Neely MD, V Dictated Date/Time: 02/20/22 10:52 a Reviewed By: Faisal Neely MD, V Signed By: Faisal Neely MD, V Signed Date/Time: 02/20/22 10:52 am Transcribed By: PATSY Transcribed Date/Time: 02/20/22 10:49 am XR Hand - right GE 3 Views [facility] , CIS S: Donnie Bonner MD: VERIFY Cornelio Choudhary DO: SIGN Event Display: Result: Authored Date: [id number] Forearm 2 Views Right, Hand 3 Views Right Reason: Trauma COMPARISON: None. FINDINGS: No acute displaced fracture. Corticated fragment in the dorsal wrist shows posterior to the carpal bones No soft tissue swelling. IMPRESSION: No acute fracture of the hand or forearm. I have personally reviewed the images and I agree with this report. WSN: [id number] Ordering Physician: Hero Price Dictated By: Cornelio Choudhary DO Dictated Date/Time: 02/20/22 1:23 pm Reviewed By: Donnie Solis MD Signed By: Donnie Solis MD Signed Date/Time: 02/20/22 1:28 pm Transcribed By: PATSY Transcribed Date/Time: 02/20/22 1:19 pm XR Radius and Ulna - right 2 Views [facility] , CIS S: TRANSCDonnie Alas MD: VERIFY Cornelio Choudhary DO: SIGN Event Display: Result: Authored Date: [id number] Forearm 2 Views Right, Hand 3 Views Right Reason: Trauma COMPARISON: None. FINDINGS: No acute displaced fracture. Corticated fragment in the dorsal wrist shows posterior to the carpal bones No soft tissue swelling. IMPRESSION: No acute fracture of the hand or forearm. I have personally reviewed the images and I agree with this report. WSN: [id number] Ordering Physician: Hero Price Dictated By: Cornelio Choudhary DO Dictated Date/Time: 02/20/22 1:23 pm Reviewed By: Donnie Solis MD Signed By: Donnie Solis MD Signed Date/Time: 02/20/22 1:28 pm Transcribed By: PATSY Transcribed Date/Time: 02/20/22 1:19 pm US.doppler Lower extremity vein - bilateral [facility] , CIS S: TRANSCMoshe Chakraborty MD: VERIFY Event Display: Result: Authored Date: [id number] US Doppler Ext Lower Venous Bilat Reason: Swelling Extremities COMPARISON: None IMAGING TECHNIQUE: Streamlined portable ultrasound of the lower extremity deep venous system was performed using grayscale, color, and spectral Doppler ultrasound from the common femoral through the popliteal vein assessing for complete compressibility and good response to compression and augmentation. The calf veins are not assessed. FINDINGS: RIGHT LOWER EXTREMITY: Common femoral vein: Patent. No thrombosis. Femoral vein: Patent. No thrombosis. Popliteal vein: Patent. No thrombosis. LEFT LOWER EXTREMITY: Common femoral vein: Patent. No thrombosis. Femoral vein: Patent. No thrombosis. Popliteal vein: Patent. No thrombosis. OTHER FINDINGS: IMPRESSION: No evidence of deep venous thrombosis from the groin through the popliteal vein. Calf veins not assessed with portable technique. WSN: [id number] Ordering Physician: Madhavi Leigh Dictated By: Moshe Busby MD Dictated Date/Time: 02/21/22 10:48 p Reviewed By: Moshe Busby MD Signed By: Moshe Busby MD Signed Date/Time: 02/21/22 10:48 pm Transcribed By: PATSY Transcribed Date/Time: 02/21/22 10:48 pm MR Lumbar spine WO contrast [facility] , CIS S: Ines Thomas MD N: VERIFY Event Display: Result: Authored Date: [id number] MRI Thoracic Spine W/O Contrast, MRI Lumbar Spine W/O Contrast Reason: Pain Trauma; Order Comment: Please see Reference Text for complete list of contraindications/ TECHNIQUE: MRI of the thoracic spine was performed without intravenous contrast utilizing sagittal T1, sagittal T2, sagittal STIR, axial T1, and axial T2- weighted sequences. MRI of the lumbar spine wasperformed without intravenous contrast utilizing sagittal T1, sagittal T2, sagittal STIR, axial T1, and axial T2-weighted sequences. COMPARISON: CT chest abdomen and pelvis 02/20/2022. MRI of the thoracic and lumbar spine dated 12/28/2014. FINDINGS: NUMBERING: Localizer sequence of the entire spine shows 7 cervical, 12 thoracic, and 5 lumbar type vertebral bodies. THORACIC SPINE: ALIGNMENT, VERTEBRAE, MARROW, AND DISCS: There is a fracture through the inferior endplate of T10 with widening of the anterior aspect of the intervertebral disc space and disruption of the anterior longitudinal ligament. There is minimal wedging of T11 but no convincing edema. Otherwise, vertebral body heights are preserved. Sagittal alignment is otherwise maintained. There is multilevel disc desiccation and mild loss of intervertebral disc height, and there are degenerative endplate osteophytes atmultiple levels with confluent bulky anterior endplate osteophytes. Multiple scattered hemangiomas. CORD: There is spinal cord compression at T10-T11 due to circumferential anterior wall in the epidural space which probably reflects hematoma in combination with the pre-existing degenerative changes at this level. No definite associated signal abnormality in the spinal cord. PARASPINAL TISSUES: There is edema adjacent to the facet joints at T10-T11, left greater than right,though no heidi disruption is present in the facet joints appear aligned. Prevertebral edema at thislevel. DETAILED FINDINGS BY LEVEL: Severe spinal canal narrowing at T10-T11 as above due to combination of disc protrusion, ligamentum flavum thickening, and suspected hemorrhage. There are a few other scattered small disc protrusions and there is multilevel facet arthropathy but no other level of significant canal or neural foraminal stenosis is demonstrated. LUMBAR SPINE: ALIGNMENT, VERTEBRAE, MARROW, AND DISCS: Left transverse process fractures from L1 through L5 is better seen on the CT. Vertebral body heights are maintained. There is multilevel degenerative endplate marrow signal change and loss of intervertebral disc height which is no stenosis at L4-L5. Sagittal alignment is maintained. Widening of the left sacroiliac joint, partially imaged. CONUS: The conus is normal in signal and contour, with normal level of termination at L1. PARASPINAL TISSUES: There is paraspinal edema on the left side and edema in the left psoas muscle and left paraspinal musculature compatible with trauma. DETAILED FINDINGS BY LEVEL: L1-L2: Minimal disc bulge. No significant canal stenosis or neural foraminal narrowing. L2-L3: Minimal disc bulge and facet arthropathy. No significant canal stenosis. Minimal bilateral neural foraminal narrowing. L3-L4: Diffuse disc bulge, ligamentum flavum thickening, and facet arthropathy. There is mild canal stenosis and mild bilateral neural foraminal narrowing. L4-L5: Diffuse disc bulge with ligamentum flavum thickening and facet arthropathy resulting in minimal spinal canal narrowing, mild to moderate right neural foraminal narrowing, and moderate left neural foraminal narrowing. L5-S1: Diffuse disc bulge with right lateral protrusion, ligamentum flavum thickening, and facet arthropathy. There is a new synovial cyst related to the left facet joint which extends into the lateralrecess encroachment left S1 nerve root. No significant canal stenosis. Minimal bilateral neural foraminal narrowing. Lateral disc protrusion abuts the right L5 nerve root. IMPRESSION: Fracture through the inferior endplate of T10 with disruption of the anterior longitudinal ligament,widening of the intervertebral disc space, and associated hematoma resulting in severe spinal canal stenosis with spinal cord compression. No definite associated spinal cord edema. Edema adjacent to the facet joints at T10-T11, left greater than right, without disruption of the facet joints could reflect soft tissue edema or injury to the joint capsule. Left L1-L5 transverse process fractures, is better seen on CT, with associated left psoas edema/hematoma and edema/injury to the left-sided posterior paraspinal musculature. Partially imaged widening of the left sacroiliac joint. New synovial cyst on the left at L5-S1 causing narrowing of the left lateral recess and crowding of the traversing left S1 nerve root. A critical result message (Red) has been communicated via the [employer] system on 02/22/2022 8:12 AM, Message ID [id number]. WSN: [id number] Ordering Physician: Nanette Min Dictated By: Ines Diggs MD Dictated Date/Time: 02/22/22 8:12 am Reviewed By: Ines Diggs MD Signed By: Ines Diggs MD Signed Date/Time: 02/22/22 8:12 am Transcribed By: PATSY Transcribed Date/Time: 02/22/22 8:04 am MR Thoracic spine WO contrast [facility] , INA S: TRANSCRIBE Ines Diggs MD: VERIFY Event Display: Result: Authored Date: [id number] MRI Thoracic Spine W/O Contrast, MRI Lumbar Spine W/O Contrast Reason: Pain Trauma; Order Comment: Please see Reference Text for complete list of contraindications/ TECHNIQUE: MRI of the thoracic spine was performed without intravenous contrast utilizing sagittal T1, sagittal T2, sagittal STIR, axial T1, and axial T2- weighted sequences. MRI of the lumbar spine wasperformed without intravenous contrast utilizing sagittal T1, sagittal T2, sagittal STIR, axial T1, and axial T2-weighted sequences. COMPARISON: CT chest abdomen and pelvis 02/20/2022. MRI of the thoracic and lumbar spine dated 12/28/2014. FINDINGS: NUMBERING: Localizer sequence of the entire spine shows 7 cervical, 12 thoracic, and 5 lumbar type vertebral bodies. THORACIC SPINE: ALIGNMENT, VERTEBRAE, MARROW, AND DISCS: There is a fracture through the inferior endplate of T10 with widening of the anterior aspect of the intervertebral disc space and disruption of the anterior longitudinal ligament. There is minimal wedging of T11 but no convincing edema. Otherwise, vertebral body heights are preserved. Sagittal alignment is otherwise maintained. There is multilevel disc desiccation and mild loss of intervertebral disc height, and there are degenerative endplate osteophytes atmultiple levels with confluent bulky anterior endplate osteophytes. Multiple scattered hemangiomas. CORD: There is spinal cord compression at T10-T11 due to circumferential anterior wall in the epidural space which probably reflects hematoma in combination with the pre-existing degenerative changes at this level. No definite associated signal abnormality in the spinal cord. PARASPINAL TISSUES: There is edema adjacent to the facet joints at T10-T11, left greater than right,though no heidi disruption is present in the facet joints appear aligned. Prevertebral edema at thislevel. DETAILED FINDINGS BY LEVEL: Severe spinal canal narrowing at T10-T11 as above due to combination of disc protrusion, ligamentum flavum thickening, and suspected hemorrhage. There are a few other scattered small disc protrusions and there is multilevel facet arthropathy but no other level of significant canal or neural foraminal stenosis is demonstrated. LUMBAR SPINE: ALIGNMENT, VERTEBRAE, MARROW, AND DISCS: Left transverse process fractures from L1 through L5 is better seen on the CT. Vertebral body heights are maintained. There is multilevel degenerative endplate marrow signal change and loss of intervertebral disc height which is no stenosis at L4-L5. Sagittal alignment is maintained. Widening of the left sacroiliac joint, partially imaged. CONUS: The conus is normal in signal and contour, with normal level of termination at L1. PARASPINAL TISSUES: There is paraspinal edema on the left side and edema in the left psoas muscle and left paraspinal musculature compatible with trauma. DETAILED FINDINGS BY LEVEL: L1-L2: Minimal disc bulge. No significant canal stenosis or neural foraminal narrowing. L2-L3: Minimal disc bulge and facet arthropathy. No significant canal stenosis. Minimal bilateral neural foraminal narrowing. L3-L4: Diffuse disc bulge, ligamentum flavum thickening, and facet arthropathy. There is mild canal stenosis and mild bilateral neural foraminal narrowing. L4-L5: Diffuse disc bulge with ligamentum flavum thickening and facet arthropathy resulting in minimal spinal canal narrowing, mild to moderate right neural foraminal narrowing, and moderate left neural foraminal narrowing. L5-S1: Diffuse disc bulge with right lateral protrusion, ligamentum flavum thickening, and facet arthropathy. There is a new synovial cyst related to the left facet joint which extends into the lateralrecess encroachment left S1 nerve root. No significant canal stenosis. Minimal bilateral neural foraminal narrowing. Lateral disc protrusion abuts the right L5 nerve root. IMPRESSION: Fracture through the inferior endplate of T10 with disruption of the anterior longitudinal ligament,widening of the intervertebral disc space, and associated hematoma resulting in severe spinal canal stenosis with spinal cord compression. No definite associated spinal cord edema. Edema adjacent to the facet joints at T10-T11, left greater than right, without disruption of the facet joints could reflect soft tissue edema or injury to the joint capsule. Left L1-L5 transverse process fractures, is better seen on CT, with associated left psoas edema/hematoma and edema/injury to the left-sided posterior paraspinal musculature. Partially imaged widening of the left sacroiliac joint. New synovial cyst on the left at L5-S1 causing narrowing of the left lateral recess and crowding of the traversing left S1 nerve root. A critical result message (Red) has been communicated via the [employer] system on 02/22/2022 8:12 AM, Message ID [id number]. WSN: [id number] Ordering Physician: Nanette Min Dictated By: Ines Diggs MD Dictated Date/Time: 02/22/22 8:12 am Reviewed By: Ines Diggs MD Signed By: Ines Diggs MD Signed Date/Time: 02/22/22 8:12 am Transcribed By: PATSY Transcribed Date/Time: 02/22/22 8:04 am XR Spine thoracolumbar junction 2 Views [facility] , CIS S: TRANSCRIBE Farnaz Jacob MD: VERIFY Event Display: Result: Authored Date: [id number] Thoracolumbar Spine 2 Views Reason: Other:; T10 fx, f u alignment s p clamshell brace; Special Instructions: Please obtain upright COMPARISON: MRI, 02/22/2022. CT, 02/20/2022. FINDINGS: The known fracture through the inferior endplate of T10 is faintly seen on the AP view, though is not well delineated on the lateral views. Displaced left L3 transverse process fracture noted. Other left lumbar transverse fracture is better seen on CT. Vertebral body heights are preserved. There is mild multilevel disc space narrowing with anterior osteophyte formation. No gross soft tissue abnormality. IMPRESSION: Horizontal fracture through the inferior endplate of T10 is only faintly seen. WSN: [id number] Ordering Physician: Madhavi Leigh Dictated By: Farnaz Jacob MD Dictated Date/Time: 02/22/22 1:03 pm Reviewed By: Farnaz Jacob MD Signed By: Farnaz Jacob MD Signed Date/Time: 02/22/22 1:03 pm Transcribed By: PATSY Transcribed Date/Time: 02/22/22 12:56 pm XR Foot - left GE 3 Views [facility] , CIS S: TRANSCRIBE Moshe Ibrahim MD: VERIFY Event Display: Result: Authored Date: [id number] Foot Min 3 Views Left, 3 views REASON: Trauma; Clinical Question(s): Fracture COMPARISON: None. FINDINGS: No fractures or bone lesions. Dorsal and plantar calcaneal spurs. No arthritic changes. Normal soft tissues. IMPRESSION: No evidence of acute osseous abnormality. WSN: [id number] Ordering Physician: Sharmin Khan Dictated By: Moshe Ibrahim MD Dictated Date/Time: 03/01/22 10:12 a Reviewed By: Moshe Ibrahim MD Signed By: Moshe Ibrahim MD Signed Date/Time: 03/01/22 10:12 am Transcribed By: PATSY Transcribed Date/Time: 03/01/22 10:11 am Patient Care team information Care Team PersonnelName: Geeta Lassiter RN Position: [facility] RN Member Role: Primary Care Nurse Name: Jaylene Colbert NP Position: Reference Physician Member Role: Primary Care Nurse Address: Address: [address] [place] [address] [place] [address]- Name: Vazquez Skinner RN Position: [facility] RN Member Role: Primary Care Nurse Name: Ana Titus RN Position: [facility] RN Supv Member Role: Primary Care Nurse Name: Saira Espinosa RN Position: [facility] RN Member Role: Primary Care Nurse Name: Cheryl Torres Position: [facility] PCO RN Member Role: Lifetime Consulting Physician Name: Agnes Mustafa [facility] Professional Member Role: Primary Care Nurse Address: Address: [address] [place] [address] [place] [address]- Name: Not on Staff, PCP Position: [facility] Physician (General Medicine) Member Role: PCP Name: Alyx Adame RN Position: [facility] RN Member Role: Primary Care Nurse Name: Micheal Fatima MD Position: [facility] Renal MD Member Role: Lifetime Consulting Physician Address: Address: [address] [place] [address] [facility] [place] [address]- Name: Adam Reina MD Position: [facility] Renal MD Member Role: Lifetime Consulting Physician Address: Address: [address] [place] [address] [facility] [place] [address]- Name: Jenaro Aguirre RN Position: [facility] RN Supv Member Role: Primary Care Nurse Name: *[facility], Trauma Attending Position: [facility] ED Attendings Patient Name: Keya Hernandez RN Position: [facility] ED RN W/OE and Tasks Name: Christina Hernandez Position: [facility] ED OA Charge Member Role: ED Associate Care Team Related PersonsName: SHANIQUA BOYD Address: home Name: CARISA COOK Address: home [address] [place] [address] Name: SHANIQUA PERRY Address: [address] [place] [address] Name: SUDEEP BAUTISTA Address: home [address] [place] [address]
--- OUTSIDE RECORDS SUMMARY | 2022-03-04 11:00 | XMS_ITS | Continuity of Care Document ---
:1960 Author Organization [facility] Address [address] [place] [id number]- Care Team Providers Name Role Phone Franklin Thao Primary Care Physician Encounter [facility] Date(s): 06/09/21 - 06/09/[address] [address]- Discharge Disposition: A-D/C Home Attending Physician: Mario Lyons MD Admitting Physician: Mario Lyons MD Referring Physician: Not on Staff, Referring MD Allergies, Adverse Reactions, Alerts Substance Reaction Severity Status penicillins rash Active Medications amiodarone 200 mg oral tablet 200 mg, 1, tablet, By Mouth, 2 times a day, # 60 tablet, Refills 0, Tot. Refills 0, Maintenance, 06/04/21 10:34:00 EDT, Route to Pharmacy Electronically, [facility], Partial fill upon patient request if the prescription is for a schedule... Start Date: 06/04/21 Stop Date: 07/04/21 Status: Orderedaspirin 81 mg oral delayed release tablet 81 mg, 1, tablet, By Mouth, Daily, # 90 tablet, Refills 3, Tot. Refills 3, Maintenance, 04/09/21 9:45:00 EST, Route to Pharmacy Electronically, [facility], Partial fill upon patient request if the prescription is for a schedule II opioid nehemiah... Start Date: 04/09/21 Status: Orderedatorvastatin 80 mg oral tablet 1 tablet = 80 mg, By Mouth, Daily at bedtime, # 30 tablet, 0 Refills, Maintenance, 06/04/21 10:35:00EDT, Tablet, [facility], Partial fill upon patient request if the prescription is for a schedule II opioid drug., 183, cm, 06/04/21 7:31... Start Date: 06/04/21 Status: [id number] = 300 mg, By Mouth, Daily, 0 [...] 06/09/21 23:32:00 EDT, Route to Pharmacy Electronically, [id number], Partial fill upon patient request if the prescription... Start Date: 06/09/21 Status: OrderedoxyCODONE 5 mg oral tablet 5 mg, Tablet, By Mouth, Once, Routine, 06/10/21 1:00:00 EDT, Stop date 06/10/21 1:00:00 EDT Start Date: 06/10/21 Stop Date: 06/09/21 Status: CompletedPlavix 75 mg oral tablet 75 mg, 1, tablet, By Mouth, Daily, # 30 tablet, Refills 0, Tot. Refills 0, Maintenance, 06/04/21 10:34:00 EDT, Route to Pharmacy Electronically, [facility], Partial fill upon patient request if the prescription is for a schedule II opioi... Start Date: 06/04/21 Status: OrderedToprol XL 50 mg oral tablet, extended release 50 mg, 1, tablet, By Mouth, Daily, # 30 tablet, Refills 0, Tot. Refills 0, Maintenance, 06/04/21 10:33:00 EDT, Route to Pharmacy Electronically, [facility], Partial fill upon patient request if the prescription is for a schedule II opioi... Start Date: 06/04/21 Status: OrderedtraMADol 50 mg oral tablet 1 tablet = 50 mg, By Mouth, Every 6 hours, PRN as needed for pain, for 1 days, # 4 tablet, 0 Refills, Acute 06/10/21 15:07:00 EDT, 06/09/21 15:07:00 EDT, Tablet, [facility]/pharmacy #[id number], Partial fill upon patient request if the prescription is for a schedu... Start Date: 06/09/21 Stop Date: 06/10/21 Status: Ordered Problem List Condition Effective Dates Status Health Status Informant Obese class I(Confirmed) Active Results Radiology Reports Exam Date Time Procedure Performing Provider Status 06/09/21 7:24 PM Chest Portable Jaja Metz; Auth (Verifie d) Notes:(Chest Portable) Reason For Exam: Shortness of BreathRESULT: Chest Portable Chest Portable Hx of Present Illness: Pt reporting upper central pleurtic chest pain and left shoulder pain. 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 CP began 1230 following use of incentive spiromter, pt developed SOB, eventually called cardiologst, told to call EMS; Reason: Shortness of Breath; Clinical Question(s): CHF COMPARISON: 06/02/2019 FINDINGS: LINES AND TUBES: None. LUNGS AND PLEURA: Increased density seen at the left base slightly more prominent than on the previous examination. Findings suggestive of mild increase in left pleural effusion. No pneumothorax. HEART, MEDIASTINUM AND MICHAEL: Heart is normal in size. Normal upper mediastinal and hilar contour. BONES AND SOFT TISSUES: No acute abnormality. IMPRESSION: Likely mild increase in left pleural effusion and adjacent atelectasis. Pneumonia not excluded. WSN: [id number] Ordering Physician: Mario Lyons Dictated By: Domingo Jacob MD Dictated Date/Time: 06/09/21 7:30 pm Reviewed By: Domingo Jacob MD Signed By: Domingo Jacob MD Signed Date/Time: 06/09/21 7:30 pm Transcribed By: PATSY Transcribed Date/Time: 06/09/21 7:29 pm Vital Signs Most recent to oldest 1 2 3 [Reference Range]: Oxygen Saturation [94-100 %] 98 % 99 % 96 % (06/09/21 10:41 PM) (06/09/21 9:05 PM) (06/09/21 6: 43 PM) Pulse Rate [55-90 bpm] 87 bpm 86 bpm 96 bpm (06/09/21 10:41 PM) (06/09/21 9:05 PM) *H* (06/09/21 6:43 PM ) Blood Pressure [90-138/55-84 122/61 mm Hg 144/73 mm Hg 111 /66 mm Hg mm Hg] (06/09/21 10:41 PM) *H* (06/09/21 6:43 PM) (06/09/21 9:05 PM) Respiratory Rate [16-30 20 br/min 21 br/min 16 br/mi n br/min] (06/09/21 11:46 PM) (06/09/21 10:41 PM) (06/09/21 9 :05 PM) Temperature [96.8-100.4 DegF] 99.1 DegF 100.2 DegF (06/09/21 9:05 PM) (06/09/21 6:43 PM) Mode of Delivery (Oxygen) Room air Room air Room a ir (06/09/21 10:41 PM) (06/09/21 9:05 PM) (06/09/21 6: 43 PM) Blood pressure sites Arm, left Arm, left Arm, left (06/09/21 10:41 PM) (06/09/21 9:05 PM) (06/09/21 6: 43 PM) Temperature Route Oral Oral (06/09/21 9:05 PM) (06/09/21 6:43 PM) Social History Social History Type Response Smoking Status Current some day smoker; Oth er: cigars on occasion; entered on: 04/15/16 Sex
--- OUTSIDE RECORDS SUMMARY | 2022-03-04 11:00 | XMS_ITS | Continuity of Care Document ---
:1960 Author Organization [facility] Address [address] [place] [address]- Care Team Providers Name Role Phone Franklin Thao Primary Care Physician [place] [facility] [place] 06[place]21 [facility] [address] [place] [address]- Allergies, Adverse Reactions, Alerts Substance Reaction Severity Status penicillins rash Active Medications amiodarone 200 mg oral tablet 200 mg, 1, tablet, By Mouth, Daily, # 30 tablet, Refills 0, Tot. Refills 0, Maintenance, 06/04/21 10:34:00 EDT, Route to Pharmacy Electronically, [facility], Partial fill upon patient request if the prescription is for a schedule II opio... Start Date: 06/04/21 Stop Date: 07/04/21 Status: Orderedaspirin 81 mg oral delayed release tablet 81 mg, 1, tablet, By Mouth, Daily, # 90 tablet, Refills 3, Tot. Refills 3, Maintenance, 04/09/21 9:45:00 EST, Route to Pharmacy Electronically, [facility], Partial fill upon patient request if the prescription is for a schedule II opioid nehemiah... Start Date: 04/09/21 Status: Orderedatorvastatin 80 mg oral tablet 1 tablet = 80 mg, By Mouth, Daily at bedtime, # 30 tablet, 0 Refills, Maintenance, 06/04/21 10:35:00EDT, Tablet, [facility], Partial fill upon patient request if the prescription is for a schedule II opioid drug., 183, cm, 06/04/21 7:31... Start Date: 06/04/21 Status: [id number] = 300 mg, By Mouth, Daily, 0 [...] 06/09/21 23:32:00 EDT, [facility], [id number], Partial fill upon patient request if the prescription... Start Date: 06/09/21 Status: OrderedPlavix 75 mg oral tablet 75 mg, 1, tablet, By Mouth, Daily, # 30 tablet, Refills 0, Tot. Refills 0, Maintenance, 06/04/21 10:34:00 EDT, Route to Pharmacy Electronically, [facility], Partial fill upon patient request if the prescription is for a schedule II opioi... Start Date: 06/04/21 Status: OrderedToprol XL 50 mg oral tablet, extended release 50 mg, 1, tablet, By Mouth, Daily, # 30 tablet, Refills 0, Tot. Refills 0, Maintenance, 06/04/21 10:33:00 EDT, Route to Pharmacy Electronically, [facility], Partial fill upon patient request if the prescription is for a schedule II opioi... Start Date: 06/04/21 Status: Ordered Social History Social History Type Response Smoking Status Current some day smoker; Oth er: cigars on occasion; entered on: 04/15/16 Sex
--- OUTSIDE RECORDS SUMMARY | 2022-03-04 11:00 | XMS_ITS | Continuity of Care Document ---
:1960 Author Organization [facility] Address [address] [place] [phone]- Care Team Providers Name Role Phone Franklin Thao Primary Care Physician [place] [facility] [place] 06[place] - 07/[place]21 [facility] [address] [place] [id number] Attending Physician: Matt Conti Admitting Physician: AdmMatt mccain Referring Physician: AdmtrMatt Allergies, Adverse Reactions, Alerts Substance Reaction Severity Status penicillins rash Active Medications amiodarone 200 mg oral tablet 200 mg, 1, tablet, By Mouth, Daily, # 30 tablet, Refills 0, Tot. Refills 0, Maintenance, 06/04/21 10:34:00 EDT, Route to Pharmacy Electronically, [facility], Partial fill upon patient request if the prescription is for a schedule II opio... Start Date: 06/04/21 Stop Date: 07/04/21 Status: Orderedaspirin 81 mg oral delayed release tablet 81 mg, 1, tablet, By Mouth, Daily, # 90 tablet, Refills 3, Tot. Refills 3, Maintenance, 04/09/21 9:45:00 EST, Route to Pharmacy Electronically, [facility], Partial fill upon patient request if the prescription is for a schedule II opioid nehemiah... Start Date: 04/09/21 Status: Orderedatorvastatin 80 mg oral tablet 1 tablet = 80 mg, By Mouth, Daily at bedtime, # 30 tablet, 0 Refills, Maintenance, 06/04/21 10:35:00EDT, Tablet, [facility], Partial fill upon patient request if the prescription is for a schedule II opioid drug., 183, cm, 06/04/21 7:31... Start Date: 06/04/21 Status: [id number] = 300 mg, By Mouth, Daily, 0 [...] 06/09/21 23:32:00 EDT, Route to Pharmacy Electronically, [facility]acy #[id number], Partial fill upon patient request if the prescription... Start Date: 06/09/21 Status: OrderedPlavix 75 mg oral tablet 75 mg, 1, tablet, By Mouth, Daily, # 30 tablet, Refills 0, Tot. Refills 0, Maintenance, 06/04/21 10:34:00 EDT, Route to Pharmacy Electronically, [facility], Partial fill upon patient request if the prescription is for a schedule II opioi... Start Date: 06/04/21 Status: OrderedToprol XL 50 mg oral tablet, extended release 50 mg, 1, tablet, By Mouth, Daily, # 30 tablet, Refills 0, Tot. Refills 0, Maintenance, 06/04/21 10:33:00 EDT, Route to Pharmacy Electronically, [facility], Partial fill upon patient request if the prescription is for a schedule II opioi... Start Date: 06/04/21 Status: Ordered Social History Social History Type Response Smoking Status Current some day smoker; Oth er: cigars on occasion; entered on: 04/15/16 Sex
--- OUTSIDE RECORDS SUMMARY | 2022-03-04 11:00 | XMS_ITS | Continuity of Care Document ---
:1960 Author Organization [facility] Address [address] [place] [phone]- Care Team Providers Name Role Phone Franklin Thao Primary Care Physician En[place] [facility] [place] Date(s): 05/11/21 - 05/11/[address] [address] Discharge Disposition: A-D/C Home Attending Physician: Marianela Sanches MD Admitting Physician: Marianela Sanches MD Referring Physician: Alexis AGUILAR, Eran Gutierrez Allergies, Adverse Reactions, Alerts Substance Reaction Severity Status penicillins rash Active Medications aspirin 81 mg oral delayed release tablet 81 mg, 1, tablet, By Mouth, Daily, # 90 tablet, Refills 3, Tot. Refills 3, Maintenance, 04/09/21 9:45:00 EST, Route to Pharmacy Electronically, [facility], Partial fill upon patient request if the prescription is for a schedule II opioid nehemiah... Start Date: 04/09/21 Status: Orderedatorvastatin 80 mg oral tablet 0.5 tablet = 40 mg, By Mouth, Daily, # 45 tablet, 3 Refills, Maintenance, 04/09/21 9:45:00 EST, [facility], 183, cm, 02/15/20 8:43:00 EST, Height, 110.9, kg, 02/15/20 8:43:00 EST, Dry Weight Start Date: 04/09/21 Status: [id number] = 300 mg, By Mouth, Daily, 0 Refills, Maintenance, 11/18/14 9:20:07 Start Date: 11/18/14 Status: OrderedFolic Acid Tablet 1 mg, By Mouth, Daily, Maintenance, 11/18/14 9:18:07 Start Date: 11/18/14 Status: Orderedisosorbide mononitrate 30 mg oral tablet, extended release 30 mg, 1, tablet, By Mouth, Daily in AM, # 30 tablet, Refills 11, Tot. Refills 11, Maintenance, 05/11/21 10:08:00 EST, Route to Pharmacy Electronically, [facility]acy #[id number], Partial fill upon patient request if the prescription is for a schedule II opi... Start Date: 05/11/21 Status: Orderedmethotrexate 10 mg oral tablet 1.5 tablet = 15 mg, By Mouth, Every week, once a week on tuesdays, 0 Refills, Maintenance, 11/18/14 9:17:07 EDT Start Date: 11/18/14 Status: Orderedmetoprolol 25 mg oral tablet, extended release 25 mg, 1, tablet, By Mouth, Daily, # 30 tablet, Refills 11, Tot. Refills 11, Maintenance, 05/11/21 10:07:00 EST, Route to Pharmacy Electronically, [facility]/pharmacy #[id number], Partial fill upon patient request if the prescription is for a schedule II opioid dr... Start Date: 05/11/21 Status: Ordered Problem List Condition Effective Dates Status Health Status Informant Obese class I(Confirmed) Active Vital Signs Most recent to oldest 1 2 3 [Reference Range]: Height 184 cm 184 cm (05/11/21 6:50 AM) (05/11/21 6:50 AM) Weight 107.6 kg 107.6 kg (05/11/21 6:50 AM) (05/11/21 6:50 AM) Oxygen Saturation [94-100 %] 100 % 100 % 96 % (05/11/21 1:00 PM) (05/11/21 12:30 PM) (05/11/21 12 :00 PM) Pulse Rate [55-90 bpm] 80 bpm (05/11/21 6:50 AM) Body Mass Index [18.5-24.99] 31.78 *>HHI* (05/11/21 6:50 AM) Blood Pressure [90-138/55-84 120/65 mm Hg 123/70 mm Hg 122 /60 mm Hg mm Hg] (05/11/21 1:00 PM) (05/11/21 12:30 PM) (05/11/21 12 :00 PM) Respiratory Rate [16-30 12 br/min 14 br/min 13 br/mi n br/min] *L* *L* *L* (05/11/21 1:00 PM) (05/11/21 12:30 PM) (05/11/21 12 :00 PM) Temperature [96.8-100.4 98.3 DegF 97.6 DegF DegF] (05/11/21 10:30 AM) (05/11/21 6:50 AM) Mode of Delivery (Oxygen) Room air Room air Room a ir (05/11/21 1:00 PM) (05/11/21 12:30 PM) (05/11/21 12 :00 PM) Blood pressure sites Arm, left Arm, left Arm, left (05/11/21 1:00 PM) (05/11/21 12:30 PM) (05/11/21 12 :00 PM) Temperature Route Temporal Temporal (05/11/21 10:30 AM) (05/11/21 6:50 AM) Dry Weight 107.6 kg 107.6 kg (05/11/21 6:50 AM) (05/11/21 6:50 AM) Weight Obtained Via Standing scale Standing scale (05/11/21 6:50 AM) (05/11/21 6:50 AM) Dry Weight Obtained Via Standing scale Standing scale (05/11/21 6:50 AM) (05/11/21 6:50 AM) Social History Social History Type Response Smoking Status Current some day smoker; Oth er: cigars on occasion; entered on: 04/15/16 Sex Male
--- OUTSIDE RECORDS SUMMARY | 2022-03-04 11:00 | XMS_ITS | Continuity of Care Document ---
:1960 Author Organization [facility] Address [address] [place] [address]- Care Team Providers Name Role Phone Franklin Thao Primary Care Physician Encounter [facility] Date(s): 04/20/21 - 05/30/[address] [address] Attending Physician: Candie Pathak NP Admitting Physician: Candie Pathak NP Referring Physician: Candie Pathak NP Allergies, Adverse Reactions, Alerts Substance Reaction Severity Status penicillins rash Active Medications aspirin 81 mg oral delayed release tablet 81 mg, 1, tablet, By Mouth, Daily, # 90 tablet, Refills 3, Tot. Refills 3, Maintenance, 04/09/21 9:45:00 EST, Route to Pharmacy Electronically, [facility], Partial fill upon patient request if the prescription is for a schedule II opioid nehemiah... Start Date: 04/09/21 Status: Orderedatorvastatin 80 mg oral tablet 0.5 tablet = 40 mg, By Mouth, Daily, # 45 tablet, 3 Refills, Maintenance, 04/09/21 9:45:00 EST, [facility], 183, cm, 02/15/20 8:43:00 EST, Height, 110.9, kg, 02/15/20 8:43:00 EST, Dry Weight Start Date: 04/09/21 Status: [id number] = 300 mg, By Mouth, Daily, 0 [...] 05/11/21 10:07:00 EST, Route to Pharmacy Electronically, [facility]acy #[id number], Partial fill upon patient request if the prescription is for a schedule II opioid . Start Date: 05/11/21 Status: Ordered Problem List Condition Effective Dates Status Health Status Informant Obese class I(Confirmed) Active Social History Social History Type Response Smoking Status Current some day smoker; Oth er: cigars on occasion; entered on: 04/15/16 Sex Male
--- OUTSIDE RECORDS SUMMARY | 2022-03-04 11:00 | XMS_ITS | Continuity of Care Document ---
:1960 Author Organization [facility] Address [address] [place] [address]- Care Team Providers Name Role Phone Franklin Thao Primary Care Physician Encounter 06/05/21 - 06/21/21 [facility] [address] [place], [place] [address] Discharge Disposition: CLIENT NO LONGER REQUIRES SKILLED CARE Allergies, Adverse Reactions, Alerts Substance Reaction Severity Status penicillins rash Active Medications amiodarone 200 mg oral tablet 200 mg, 1, tablet, By Mouth, Daily, # 30 tablet, Refills 0, Tot. Refills 0, Maintenance, 06/04/21 10:34:00 EDT, Route to Pharmacy Electronically, [facility], Partial fill upon patient request if the prescription is for a schedule II opio... Start Date: 06/04/21 Stop Date: 07/04/21 Status: Orderedaspirin 81 mg oral delayed release tablet 81 mg, 1, tablet, By Mouth, Daily, # 90 tablet, Refills 3, Tot. Refills 3, Maintenance, 04/09/21 9:45:00 EST, Route to Pharmacy Electronically, [facility], Partial fill upon patient request if the prescription is for a schedule II opioid nehemiah... Start Date: 04/09/21 Status: Orderedatorvastatin 80 mg oral tablet 1 tablet = 80 mg, By Mouth, Daily at bedtime, # 30 tablet, 0 Refills, Maintenance, 06/04/21 10:35:00EDT, Tablet, [facility], Partial fill upon patient request if the prescription is for a schedule II opioid drug., 183, cm, 06/04/21 7:31... Start Date: 06/04/21 Status: [id number] = 300 mg, By Mouth, Daily, 0 [...] 06/09/21 23:32:00 EDT, [id number], Partial fill upon patient request if the prescription... Start Date: 06/09/21 Status: OrderedPlavix 75 mg oral tablet 75 mg, 1, tablet, By Mouth, Daily, # 30 tablet, Refills 0, Tot. Refills 0, Maintenance, 06/04/21 10:34:00 EDT, Route to Pharmacy Electronically, [facility], Partial fill upon patient request if the prescription is for a schedule II opioi... Start Date: 06/04/21 Status: OrderedToprol XL 50 mg oral tablet, extended release 50 mg, 1, tablet, By Mouth, Daily, # 30 tablet, Refills 0, Tot. Refills 0, Maintenance, 06/04/21 10:33:00 EDT, Route to Pharmacy Electronically, [facility], Partial fill upon patient request if the prescription is for a schedule II opioi... Start Date: 06/04/21 Status: Ordered Social History Social History Type Response Smoking Status Current some day smoker; Oth er: cigars on occasion; entered on: 04/15/16 Sex
--- OUTSIDE RECORDS SUMMARY | 2022-03-04 11:00 | XMS_ITS | Continuity of Care Document ---
:1960 Author Organization [facility] Address [address] [place] [id number]- Care Team Providers Name Role Phone Franklin Thao Primary Care Physician En[place] [facility] [place] Date(s): 06/25/21 - 09/28/[address] [address] Encounter Diagnosis Atherosclerotic heart disease of [place] coronary artery without angina pectoris (Final) - Discharge Disposition: A-D/C Home Attending Physician: Moses Banuelos MD Admitting Physician: Moses Banuelos MD Referring Physician: Moses Banuelos MD Allergies, Adverse Reactions, Alerts Substance Reaction Severity Status penicillins rash Active Medications aspirin 81 mg oral delayed release tablet 81 mg, 1, tablet, By Mouth, Daily, # 90 tablet, Refills 3, Tot. Refills 3, Maintenance, 04/09/21 9:45:00 EST, Route to Pharmacy Electronically, [facility], Partial fill upon patient request if the prescription is for a schedule II opioid nehemiah... Start Date: 04/09/21 Status: [id number] = 300 mg, By Mouth, Daily, 0 [...] fill upon p... Start Date: 05/14/21 Status: Ordered Problem List Condition Effective Dates Status Health Status Informant Obese class I(Confirmed) Active Social History Social History Type Response Smoking Status Current some day smoker; Oth er: cigars on occasion; entered on: 04/15/16 Sex
--- OUTSIDE RECORDS SUMMARY | 2022-03-04 11:00 | XMS_ITS | Continuity of Care Document ---
:1960 Author Organization [facility] Address [address] [place] [address]- Care Team Providers Name Role Phone Franklin Thao Primary Care Physician Encounter [facility] [id number] Date(s): 03/20/21 - 09/07/21 [facility] [address] [place] [address]- Attending Physician: Alexis AGUILAR, Eran Gutierrez Referring Physician: Franklin Thao Allergies, Adverse Reactions, Alerts Substance Reaction Severity Status penicillins rash Active Medications aspirin 81 mg oral delayed release tablet 81 mg, 1, tablet, By Mouth, Daily, # 90 tablet, Refills 3, Tot. Refills 3, Maintenance, 04/09/21 9:45:00 EST, Route to Pharmacy Electronically, [facility], Partial fill upon patient request if the prescription is for a schedule II opioid nehemiah... Start Date: 04/09/21 Status: [id number] = 300 mg, By Mouth, Daily, 0 [...]
--- OUTSIDE RECORDS SUMMARY | 2022-03-04 11:00 | XMS_ITS | Continuity of Care Document ---
:1960 Author Organization [facility] Address [address] [place] [address]- Care Team Providers Name Role Phone Franklin Thao Primary Care Phys[id number] Date(s[facility] 03/26/[facility] - 04/25/21 [facility] [address] [place] [address]- Allergies, Adverse Reactions, Alerts Substance Reaction Severity Status penicillins rash Active Medications aspirin 81 mg oral delayed release tablet 81 mg, 1, tablet, By Mouth, Daily, for 90 days, # 90 tablet, Refills 3, Tot. Refills 3, Hard Stop 04/04/22 8:33:00 EST, 04/09/21 8:33:00 EST, Do Not Route, Partial fill upon patient request if the prescription is for a schedule II opioid drug. Start Date: 04/09/21 Stop Date: 04/04/22 Status: Orderedaspirin 81 mg oral delayed release tablet 81 mg, 1, tablet, By Mouth, Daily, # 90 tablet, Refills 3, Tot. Refills 3, Maintenance, 04/09/21 9:45:00 EST, Route to Pharmacy Electronically, [facility], Partial fill upon patient request if the prescription is for a schedule II opioid nehemiha... Start Date: 04/09/21 Status: Orderedatorvastatin 80 mg oral tablet 0.5 tablet = 40 mg, By Mouth, Daily, for 90 days, # 45 tablet, 3 Refills, Hard Stop 04/04/22 8:32:00EST, 04/09/21 8:32:00 EST, [facility], 183, cm, 02/15/20 8:43:00 EST, Height, 110.9, kg, 02/15/20 8:43:00 EST, Dry Weight Start Date: 04/09/21 Stop Date: 04/04/22 Status: Orderedatorvastatin 80 mg oral tablet 0.5 tablet = 40 mg, By Mouth, Daily, # 45 tablet, 3 Refills, Maintenance, 04/09/21 9:45:00 EST, [facility], 183, cm, 02/15/20 8:43:00 EST, Height, 110.9, kg, 02/15/20 8:43:00 EST, Dry Weight Start Date: 04/09/21 Status: [id number] = 300 mg, By Mouth, Daily, 0 Refills, Maintenance, 11/18/14 9:20:07 Start Date: 11/18/14 Status: OrderedFolic Acid Tablet 1 mg, By Mouth, Daily, Maintenance, 11/18/14 9:18:07 Start Date: 11/18/14 Status: Orderedmethotrexate 10 mg oral tablet 1.5 tablet = 15 mg, By Mouth, Every week, once a week on tuesdays, 0 Refills, Maintenance, 11/18/14 9:17:07 EDT Start Date: 11/18/14 Status: OrderedPercocet-10/325 oral tablet 1 tablet, By Mouth, 3 times a day, 0 Refills, Maintenance, 11/18/14 9:19:21 Start Date: 11/18/14 Status: Ordered Social History Social History Type Response Smoking Status Current some day smoker; Oth er: cigars on occasion; entered on: 04/15/16 Sex Male
--- OUTSIDE RECORDS SUMMARY | 2022-03-04 11:00 | XMS_ITS | Continuity of Care Document ---
:1960 Author Organization [facility] Address [address] [place] [address]- Care Team Providers Name Role Phone Franklin Thao Primary Care Physician Encounter [facility] [place] [facility] [id number] Date(s): 05/21/21 - 06/20/21 [facility] [address] [place], [place] [address] Attending Physician: Matt Conti Admitting Physician: AdmtrMatt Referring Physician: Admtr, Ar8 Allergies, Adverse Reactions, Alerts Substance Reaction Severity Status penicillins rash Active Medications amiodarone 200 mg oral tablet 200 mg, 1, tablet, By Mouth, Daily, # 30 tablet, Refills 0, Tot. Refills 0, Maintenance, 06/04/21 10:34:00 EDT, Route to Pharmacy Electronically, [facility], Partial fill upon patient request if the prescription is for a schedule II opio... Start Date: 06/04/21 Stop Date: 07/04/21 Status: Orderedaspirin 81 mg oral delayed release tablet 81 mg, 1, tablet, By Mouth, Daily, # 90 tablet, Refills 3, Tot. Refills 3, Maintenance, 04/09/21 9:45:00 EST, Route to Pharmacy Electronically, [facility], Partial fill upon patient request if the prescription is for a schedule II opioid nehemiah... Start Date: 04/09/21 Status: Orderedatorvastatin 80 mg oral tablet 1 tablet = 80 mg, By Mouth, Daily at bedtime, # 30 tablet, 0 Refills, Maintenance, 06/04/21 10:35:00EDT, Tablet, [facility], Partial fill upon patient request if the prescription is for a schedule II opioid drug., 183, cm, 06/04/21 7:31... Start Date: 06/04/21 Status: [id number] = 300 mg, By Mouth, Daily, 0 [...] 06/09/21 23:32:00 EDT, Route to Pharmacy Electronically, [facility]/pharmacy #[id number], Partial fill upon patient request if the prescription... Start Date: 06/09/21 Status: OrderedPlavix 75 mg oral tablet 75 mg, 1, tablet, By Mouth, Daily, # 30 tablet, Refills 0, Tot. Refills 0, Maintenance, 06/04/21 10:34:00 EDT, Route to Pharmacy Electronically, [facility], Partial fill upon patient request if the prescription is for a schedule II opioi... Start Date: 06/04/21 Status: OrderedToprol XL 50 mg oral tablet, extended release 50 mg, 1, tablet, By Mouth, Daily, # 30 tablet, Refills 0, Tot. Refills 0, Maintenance, 06/04/21 10:33:00 EDT, Route to Pharmacy Electronically, [facility], Partial fill upon patient request if the prescription is for a schedule II opioi... Start Date: 06/04/21 Status: Ordered Social History Social History Type Response Smoking Status Current some day smoker; Oth er: cigars on occasion; entered on: 04/15/16 Sex
--- OUTSIDE RECORDS SUMMARY | 2022-03-04 11:00 | XMS_ITS | Continuity of Care Document ---
:1960 Author Organization [facility] Address [address] [place] [id number]- Care Team Providers Name Role Phone Franklin Thao Primary Care Physician [place] [facility] [place] - 07/01/[address] [id number] Attending Physician: Not on Staff, Attending MD Admitting Physician: Not on Staff, Admitting MD Referring Physician: Not on Staff, Referring MD Allergies, Adverse Reactions, Alerts Substance Reaction Severity Status penicillins rash Active Medications amiodarone 200 mg oral tablet 200 mg, 1, tablet, By Mouth, Daily, # 30 tablet, Refills 0, Tot. Refills 0, Maintenance, 06/04/21 10:34:00 EDT, Route to Pharmacy Electronically, [facility], Partial fill upon patient request if the prescription is for a schedule II opio... Start Date: 06/04/21 Stop Date: 07/04/21 Status: Orderedaspirin 81 mg oral delayed release tablet 81 mg, 1, tablet, By Mouth, Daily, # 90 tablet, Refills 3, Tot. Refills 3, Maintenance, 04/09/21 9:45:00 EST, Route to Pharmacy Electronically, [facility], Partial fill upon patient request if the prescription is for a schedule II opioid nehemiah... Start Date: 04/09/21 Status: Orderedatorvastatin 80 mg oral tablet 1 tablet = 80 mg, By Mouth, Daily at bedtime, # 30 tablet, 0 Refills, Maintenance, 06/04/21 10:35:00EDT, Tablet, [facility], Partial fill upon patient request if the prescription is for a schedule II opioid drug., 183, cm, 06/04/21 7:31... Start Date: 06/04/21 Status: [id number] = 300 mg, By Mouth, Daily, 0 [...] 23:32:00 EDT, Route to Pharmacy Electronically, [id number], Partial fill upon patient request if the prescription... Start Date: 06/09/21 Status: OrderedPlavix 75 mg oral tablet 75 mg, 1, tablet, By Mouth, Daily, # 30 tablet, Refills 0, Tot. Refills 0, Maintenance, 06/04/21 10:34:00 EDT, Route to Pharmacy Electronically, [facility], Partial fill upon patient request if the prescription is for a schedule II opioi... Start Date: 06/04/21 Status: OrderedToprol XL 50 mg oral tablet, extended release 50 mg, 1, tablet, By Mouth, Daily, # 30 tablet, Refills 0, Tot. Refills 0, Maintenance, 06/04/21 10:33:00 EDT, Route to Pharmacy Electronically, [facility], Partial fill upon patient request if the prescription is for a schedule II opioi... Start Date: 06/04/21 Status: Ordered Social History Social History Type Response Smoking Status Current some day smoker; Oth er: cigars on occasion; entered on: 04/15/16 Sex
[2022-03-04] MEDS: Morphine Sulfate 4 MG/ML CARTRIDGE IVPUSH (11:05)
[2022-03-04 11:19] LABS: Alanine Aminotransferase 22 U/L (0-40); Albumin Level 3.5 g/dL (3.5-5.0); Alkaline Phosphatase 195 U/L (39-117); Anion Gap 10 (12-20); Aspartate Amino Transferase 23 U/L (5-37); Bilirubin Total 1.5 mg/dL (0.0-1.0); Blood Urea Nitrogen 22 mg/dL (9-16); Calcium 8.9 mg/dL (8.4-10.2); Carbon Dioxide 28 mmol/L (22-29); Chloride 102 mmol/L (96-108); Creatinine Clr Calc Pharmacy 61.3; Estimated Glomerular Filt Rate 54; Glucose Random 92 mg/dL (60-115); Potassium 4.2 mmol/L (3.3-5.1); Sodium 136 mmol/L (135-145); Total Protein 6.3 g/dL (6.5-8.0)
[2022-03-04 11:37] LABS: COVID-19 Test Positive (Negative); IDNOW Serial# BCCEAD1C
[2022-03-04 12:00] VITALS: BP 134/87; PULSE 76; RESP 21; TEMP 36.7; O2SAT 99
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
[2022-03-04] MEDS: HYDROmorphone HCl 0.5 MG/0.5 ML SYRINGE IVPUSH (15:43)
[2022-03-04 16:46] VITALS: BP 122/62; PULSE 69; RESP 18; TEMP 36.7; O2SAT 98
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
--- NOTE | 2022-03-04 17:46 | MHC.CM.ED ---
Pt has accepted bed at [facility] and auth obtained from [facility]. Facility requests that patient be transported tomorrow 03/05 at 10:30am. Patient aware. Transport booked with [facility]. Provider aware. RN aware. Med Nec with chart. CM to follow for diacharge needs.
[2022-03-04] MEDS: oxyCODONE HCl Immed Release 5 MG TABLET PO (18:43)
[2022-03-04] MEDS: Morphine Sulfate Immed Release 15 MG TABLET PO (23:20)
[2022-03-04 23:41] VITALS: BP 116/51; PULSE 83; TEMP 37.1; O2SAT 99
[2022-03-05 02:39] VITALS: BP 105/58; PULSE 82; TEMP 37.3; O2SAT 97
--- NOTE | 2022-03-05 03:11 | PC.NURSE ---
Med req completed.
--- NOTE | 2022-03-05 06:16 | PC.NURSE ---
Pt asleep at the bedside. Breaths are even and unlabored with equal chest rises. No apparent distress noted. Pt had an uneventful night with no issues or concerns. Will continue to monitor.
[2022-03-05 06:49] VITALS: BP 125/63; PULSE 87; TEMP 36.5; O2SAT 96
[2022-03-05] MEDS: Morphine Sulfate Immed Release 15 MG TABLET PO (07:51)
[2022-03-05 08:44] VITALS: BP 115/62; PULSE 81; RESP 16; O2SAT 96
== END 2022-03-05 10:09 ==
PROVIDERS: Physician Assistant; Emergency Provider Emergency Medicine; PCP Physician Assistant
DX: S22.42XA Multiple fractures of ribs, left side, initial encounter for closed fracture (principal); M54.50 Low back pain, unspecified; R26.2 Difficulty in walking, not elsewhere classified; W01.10XA Fall on same level from slipping, tripping and stumbling with subsequent striking against unspecified object, initial encounter; Y93.9 Activity, unspecified; Y92.9 Unspecified place or not applicable; Y99.9 Unspecified external cause status; Z20.822 Contact with and (suspected) exposure to COVID-19; Z79.899 Other long term (current) drug therapy; Z87.891 Personal history of nicotine dependence
CPT/HCPCS: 36415; 80053; 85025; 87635; 96374; 96375; 97163; 97167; 99284; J1170; J2270

== ENCOUNTER → 2022-04-19 10:23 | Outpatient (BNVA) | payer OTHER, SELFPAY | PROVIDERS: PCP Physician Assistant; Visit Provider Nurse Practitioner Family | DX: Z13.89 Encounter for screening for other disorder (principal) ==

== ENCOUNTER 2022-10-11 08:12 | Emergency (ER) | payer OTHER, SELFPAY ==
--- NOTE | ~2022-10-11 | CT_ITS ---
EXAMINATION: CT ABDOMEN AND PELVIS WITHOUT CONTRAST CLINICAL INFORMATION: Mass above umbilicus. COMPARISON: None available. TECHNIQUE: Multidetector volumetric imaging was performed from the superior aspect of the liver through the pubic symphysis. Sagittal and coronal reformatted images were obtained on the technologist's workstation. This CT examination was performed using dose optimization techniques as appropriate, variously including the following: *Automated exposure control *Adjustment of mA and/or kV according to patient size (this includes techniques or standardized protocols for targeted exams where dose is matched to indication/reason for exam; i.e. extremities or head) *Use of iterative reconstruction technique DLP: 747 mGy-cm FINDINGS: LUNG BASES: 7 mm nodule in the lingula. LIVER, GALLBLADDER, AND BILIARY TREE: The noncontrast liver is normal in size and contour. No focal hepatic lesion or biliary ductal dilatation is present. Possible layering gallstones. PANCREAS: Unremarkable. SPLEEN: Unremarkable. ADRENAL GLANDS: Right adrenal gland is unremarkable. The left adrenal gland is not visualized. KIDNEYS AND URETERS: Status post left nephrectomy. There are small nodules adjacent to the surgical clips in the nephrectomy bed. These nodules measure 0.9 x 1.9 x 2.0 cm and 1.6 x 1.5 x 1.6 cm. The right kidney is normal in size. No right hydronephrosis. Nonspecific right perinephric stranding. BLADDER: Underdistended. GASTROINTESTINAL TRACT: Small and large bowel loops are of normal caliber. No small bowel obstruction. Appendix is within normal limits. ABDOMINAL WALL: No significant hernia is appreciated. LYMPH NODES: No bulky abdominal or pelvic lymphadenopathy VASCULAR: Normal caliber abdominal aorta. PELVIC VISCERA: Unremarkable. OSSEOUS STRUCTURES: No destructive bone lesions. Prior median sternotomy. CT/CT abdomen pelvis wo IV con IMPRESSION: Status post left nephrectomy. There are small nodules adjacent to surgical clips in the nephrectomy bed. No prior studies are available for comparison. Imaging surveillance is advised. 7 mm nodule in the lingula. Dedicated chest CT is recommended. Possible gallstones.
[2022-10-11 08:15] VITALS: BP 133/66; PULSE 76; RESP 18; TEMP 36.7; O2SAT 98; BMI 31.2
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
[2022-10-11 08:35] LABS: MANUAL DIFF FLAG NO
[2022-10-11 08:42] LABS: Basophils Percent Auto 0.4 % (0-2); Eosinophils Absolute Auto 0.1 X10*3/uL (0.0-0.4); Eosinophils Percent Auto 0.7 % (0-4); Hematocrit 42.7 % (42.0-52.0); Hemoglobin 15.2 g/dl (14.0-18.0); Imm Gran Abs Auto 0.01 X10*3/uL (0.00-0.03); Imm Gran Pct Auto 0.1 % (0.0-0.4); Lymphocytes Percent Auto 29.5 % (20-40); Mean Corpuscular HGB Conc 35.6 g/dl (31.0-36.0); Mean Corpuscular Hemoglobin 35.2 pg (27.0-33.0); Mean Corpuscular Volume 98.8 fL (80.0-98.0); Mean Platelet Volume 10.9 fL (9.4-12.4); Monocytes Absolute Auto 0.5 X10*3/uL (0.1-1.2); Monocytes Percent Auto 7.6 % (2-11); Neutrophils Absolute Auto 4.2 x10*3/uL (2.0-8.3); Neutrophils Percent Auto 61.7 % (45-73); Platelet Count 151 X10*3/uL (160-400); Red Blood Count 4.32 X10*6/uL (4.60-5.80); Red Cell Distribution Width 13.4 % (11.0-16.0); White Blood Count 6.9 X10*3/uL (4.8-10.8)
[2022-10-11 08:50] LABS: Alanine Aminotransferase 21 U/L (0-40); Albumin Level 4.5 g/dL (3.5-5.0); Alkaline Phosphatase 81 U/L (39-117); Anion Gap 17 (12-20); Aspartate Amino Transferase 25 U/L (5-37); Bilirubin Total 0.8 mg/dL (0.0-1.0); Blood Urea Nitrogen 15 mg/dL (9-16); Calcium 10.4 mg/dL (8.4-10.2); Carbon Dioxide 21 mmol/L (22-29); Chloride 113 mmol/L (96-108); Creatinine Clr Calc Pharmacy 63.7; Estimated Glomerular Filt Rate 47; Glucose Random 121 mg/dL (60-115); Lipase 21 U/L (8-78); Potassium 4.9 mmol/L (3.3-5.1); Sodium 146 mmol/L (135-145); Total Protein 7.2 g/dL (6.5-8.0)
[2022-10-11 11:32] VITALS: BP 125/71; PULSE 57; RESP 16; TEMP 36.6; O2SAT 100
== END 2022-10-11 11:39 | disposition home or self-care (01) ==
PROVIDERS: Physician Assistant; Emergency Provider Emergency Medicine Emergency Medical Services; PCP Physician Assistant
DX: R10.30 Lower abdominal pain, unspecified (principal); I10 Essential (primary) hypertension; I25.10 Atherosclerotic heart disease of native coronary artery without angina pectoris; Z79.899 Other long term (current) drug therapy
CPT/HCPCS: 36415; 74176; 80053; 82550; 83690; 85025; 99283; 99284

== ENCOUNTER 2022-10-29 13:22 | Outpatient (AMB) | payer OTHER, SELFPAY ==
[2022-10-29 13:23] VITALS: BP 128/86; PULSE 65; O2SAT 98; BMI 31.9
--- NOTE | 2022-10-29 13:23 | MHC.PC.OV ---
Vital Signs 10/29/22 13:23 Height 6 ft Weight 235 lb 6 oz BMI 31.9 BP 128/86 Blood Pressure Location Lt brachial Position Sitting Pulse 65 Pulse Source Pulse Oximeter Pulse Oximetry (%) 98 Oxygen Delivery Method Room Air Intake Visit Reasons: Physical Exam Allergies Penicillins [PENICILLINS] Allergy (Intermediate, Verified 10/29/22 13:32) RASH Medication List - Last Reconciled 10/29/22 by Franklin Beck PA-C diazepam 10 mg PO BEDTIME 30 days ezetimibe 1 tab PO DAILY ferrous gluconate 324 mg PO DAILY folic acid 1 mg PO DAILY methotrexate sodium 20 mg PO QWEEK metoprolol succinate ER 50 mg PO DAILY oxycodone-acetaminophen 10-325 mg 1 tab PO Q6H PRN 4 days rosuvastatin 1 tab PO DAILY sennosides (senna) 17.2 mg PO BEDTIME Tobacco use date assessed: 07/01/22 HPI Physical Exam HPI Details James is a 62-year-old male here today for follow-up visit? Patient's past medical history significant for hyperlipidemia, CAD ( status post bypass graft 2021) ? psoriasis, chronic shoulder pain, hypertension, obesity. Concern--> has noted a large lump over his mid abdomen that is nonpainful. He denies any bowel difficulties. Has gotten CT of abdomen and pelvis without any evidence of any hernia. Incidental note of a 7 mm lung nodule noted. . CHRONIC MEDICAL CONDITIONS--> Coronary artery disease:? Interval history--> Patient is status post coronary artery bypass graft.? He did have a small pleural effusion while in hospital.? He was started on Lasix 20 mg daily for 5 days.? He was also started on iron supplementation for 2 weeks. He was also given lidocaine patch to use on his chest at at bedtime. His amiodarone dose was reduced to 200 mg daily.? He was to stay on aspirin and Plavix. Was also started on flexeril for his back and shoulder pain Currently--> continues to follow a chief scientific officer at [facility] and reports having recent lipid panel showing excellent control of his cholesterol. ? . ? . ? Status post nephrectomy: Had renal carcinoma--> Most recent creatinine at 1.5. Continues to follow nephrology. ? .. ? Hypertension: Patient has been compliant with his medication , blood pressure on the low side today.? Anticipate blood pressure normalizing after off of Lasix. ? .. ? Plaque psoriasis: patient is followed by dermatology and continues to use?methotrexate. ? Colonoscopy: Done in 2020, normal repeat 10 years Vaccines: Up-to-date with COVID vaccine, tetanus vaccine, considering shingles vaccine Laboratory Tests 07/12/21 03/04/22 03/04/22 06:09 10:45 10:45 RBC 3.46 L Hgb 10.7 L Creatinine 1.35 LDL Cholesterol, C alc 101 Lipase 10/11/22 10/11/22 08:30 08:30 RBC 4.32 L D Hgb 15.2 D Creatinine 1.50 H LDL Cholesterol, C alc Lipase 21 PFSH Medical History (Updated 10/30/22 @ 07:42 by Franklin Beck PA-C) Anxiety Arthritis Arthritis of left shoulder region Arthritis of right shoulder region Chronic pain syndrome Compression fracture of T10 vertebra Compression fracture of T11 vertebra Elevated cholesterol Erectile dysfunction Fracture of lumbar spine Hx of renal cell cancer Pelvic hematoma in male Surgical History (Updated 10/29/22 @ 13:52 by Franklin Beck PA-C) H/O two vessel coronary artery bypass graft History of left inguinal hernia repair History of nephrectomy History of shoulder surgery History of shoulder surgery History of vasectomy Hx of colonoscopy (~2010) Family History Father Diabetes Heart problem Mother No problems noted. 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 1. Little interest or pleasure in doing things: not at all 2. Feeling down, depressed, or hopeless: not at all 3. Trouble falling or staying asleep, or sleeping too much: not at all 4. Feeling tired or having little energy: not at all 5. Poor appetite or overeating: not at all 6. Feeling bad about yourself - or that you are a failure or have let yourself or your family down: not at all 7. Trouble concentrating on things, such as reading the newspaper or watching television: not at all 8. Moving or speaking so slowly that other people could have noticed. Or the opposite - being so fidgety or restless that you have been moving around a lot more than usual: not at all 9. Thoughts that you would be better off or of hurting yourself in some way: not at all Total score: 0 Depression Screening Interpretation: Negative 31279 - PHQ-9 Billing: Yes Source: Developed by Drs. Negro Ospina, Delilah Stewart, Noel Patterson and colleagues, with an educational mandy from [employer]. Thrive Questionnaire Date Thrive assessed: 07/01/22 I am a: Patient What is your living situation today?: I have a steady place to live Within the past 12 months, did the food you bought not last and you didn't have the money to get more?: Never true Within the past 12 months, did you worry whether your food would run out before you got money to buy more?: Never true Currently or been in a relationship where the following occur: no concerns reported AUDIT C Alcohol Use Questionnaire (AUDIT-C) 1. How often do you have a drink containing alcohol?: 2-3 times a week 2. How many drinks containing alcohol do you have on a typical day when you are drinking?: 1 or 2 3. How often do you have six or more drinks on one occasion?: Never Total Score: 3 CEFERINO-7 AMB Questionnaire CEFERINO-7 Date CEFERINO - 7 assessed: 07/01/22 Feeling nervous, anxious, or on edge: 0 = Not at all Not being able to stop or control worryin = Not at all Worrying too much about different things: 0 = Not at all Trouble relaxin = Not at all Being so restless that it is hard to sit still: 0 = Not at all Becoming easily annoyed or irritable: 0 = Not at all Feeling afraid as if something awful might happen: 0 = Not at all Total CEFERINO-7 score (0-4 normal; 5-9 mild; 10-14 moderate; 15-21 severe): 0 Source: Developed by Drs. Negro Ospina, Delilah Stewart, Noel Patterson and colleagues, with an educational mandy from [employer]. CEFERINO-7 Assessment Billing CEFERINO-7 Assessment Tool: CEFERINO-7 Assessment 24907 Review of Systems Const Denies body aches, Denies chills, Denies excessive sweating, Denies fatigue, Denies fever(s) and Denies headache(s) Eyes Denies blurry vision ENT Denies dysphagia, Denies vertigo, Denies dizziness, Denies headache(s), Denies hearing loss and Denies tinnitus Card Denies chest pain, Denies chest pain with activity, Denies syncope, Denies irregular heart rhythm and Denies dyspnea Resp Denies chest congestion, Denies cough, Denies hemoptysis, Denies dyspnea and Denies wheezing GI Denies abdominal pain, Denies melena, Denies hematochezia, Denies coffee ground emesis, Denies dysphagia, Denies diarrhea, Denies nausea and Denies vomiting Denies difficulty urinating, Denies dysuria, Denies urinary frequency, Denies urinary hesitancy and Denies urinary urgency Musc Denies arthralgias, Denies limited range of motion, Denies muscle cramps and Denies muscle weakness Skin/Breast Denies rash and Denies skin ulcer Neuro Denies Abnormal speech present, Denies confusion, Denies vertigo, Denies dizziness, Denies syncope, Denies headache(s), Denies memory loss and Denies seizure-like activity Psych Denies anxiety, Denies confusion, Denies depression, Denies memory loss, Denies panic attacks and Denies paranoia Endo Denies excessive sweating, Denies fatigue, Denies flushing, Denies polydipsia and Denies polyuria Aller/Immun Denies wheezing Physical exam (Primary Care) Vital Signs: Last Vital Signs Pulse 65 10/29/22 13:23 BP 128/86 10/29/22 13:23 Pulse Ox 98 10/29/22 13:23 Oxygen Delivery Method Room Air 10/29/22 13:23 BMI result Body Mass Index 31.9 BMI Assessment/Plan discussion: High Tobacco/Smoking Status: Tobacco use Status Tobacco use date assessed 07/01/22 10/29/22 13:27 Patient Tobacco Use Status Former Tobacco user 10/29/22 13:27 Tobacco use type Cigar 10/29/22 13:27 e-Cigarette/Vaping Use Never Used 10/29/22 13:27 PHQ-9: PHQ-9 Score PHQ-9: Total score 0 10/29/22 13:36 Depression Screening Interpretation: Negative Thrive Assessment: Date of Thrive Assessment Date Thrive assessed 07/01/22 10/29/22 13:27 Currently or been in a relationship where the following occur: no concerns reported Const Other: Obese General: cooperative, comfortable, no acute distress, alert and awake; No confusion Orientation/consciousness: oriented to person, oriented to place, patient oriented x3 and No confusion HENMT Head: Yes normocephalic Ears: external ears normal and TM's normal bilaterally Face and sinus: No sinus tenderness Mouth: Normal oral and palatal mucosa present and tongue normal Teeth and gingiva: dentition normal and gingiva normal Throat: Yes posterior oropharynx normal, Yes tonsils normal and Yes uvula midline Eyes Conjunctivae: conjunctivae normal Sclerae: sclerae normal Pupils: Equal, round and reactive pupils present EOM: EOMs intact bilaterally Direct Ophthalmoscopy: No no photophobia Neck Neck: Yes no lymphadenopathy, No tender and Yes no JVD Thyroid: Thyroid normal Carotids: no bruits Chest Chest palpation & inspection: no tenderness Resp Effort & Inspection: normal respiratory effort, no audible wheezes, not labored and no stridor Auscultation: no crackles, no rales, no rhonchi and no wheezes Cardio Jugular venous distension: no JVD Rate: regular rate, not bradycardic and not tachycardic Rhythm: regular rhythm Bruits: no carotid bruits Peripheral pulses: Peripheral pulses 2+ throughout GI Inspection: Yes normal to inspection, No abdominal wall ecchymosis and No visible herniation Palpation (GI): Soft to palpation, nontender, no guarding, not rigid and No hepatosplenomegaly present Auscultation: normoactive bowel sounds General: Yes no CVA tenderness Back/Spine/Pelvis Back: no CVA tenderness and No back tenderness Cervical Spine: cervical ROM normal Thoracic/Lumbar Spine: thoracic and lumbar spine normal to inspection, straight leg raise negative bilaterally, No thoraco-lumbar ROM limited and No lumbar spinal tenderness Skin Lesions: no lesions Rashes: no rashes Wounds: no wounds Neuro General: oriented to person, oriented to place, patient oriented x3, CN's II-XI intact bilaterally and No confusion Cranial nerves: Yes Equal, round and reactive pupils present and Yes Normal accommodation reflex present Cognition (Neuro): normal cognition Speech: No Abnormal speech present Gait exam (Neuro): Normal gait present Motor exam (neuro): 5/5 motor strength present throughout Extrem Right upper extremity: full ROM; no cyanosis Left upper extremity: full ROM; no cyanosis Right lower extremity: no edema Left lower extremity: no edema Psych Appearance: grossly normal Mental Status: mental status grossly normal Affect: normal affect Attitude: cooperative Thought process: Normal thought process present Assessment and Plan Assessment & Plan (1) Annual physical exam: Code(s): Z00.00 - Encounter for general adult medical examination without abnormal findings (2) HLD (hyperlipidemia): Code(s): E78.5 - Hyperlipidemia, unspecified Qualifiers: Hyperlipidemia type: mixed hyperlipidemia Qualified Code(s): E78.2 - Mixed hyperlipidemia Plan: Patient continues on high-dose statin therapy with adjunctive Zetia. Does have a coronary artery disease thus at goal LDL to be optimally below 70 (3) HTN (hypertension): Code(s): I10 - Essential (primary) hypertension Qualifiers: Hypertension type: essential hypertension Qualified Code(s): I10 - Essential (primary) hypertension Plan: Patient's blood pressure acceptable today in office. Will continue current dose of metoprolol (4) CAD (coronary artery disease): Code(s): I25.10 - Atherosclerotic heart disease of [place] coronary artery without angina pectoris Qualifiers: Associated angina: with stable angina Coronary Disease-Associated Artery/Lesion type: [place] artery [place] vs. transplanted heart: [place] heart Qualified Code(s): I25.118 - Atherosclerotic heart disease of [place] coronary artery with other forms of angina pectoris Plan: Patient is status post coronary artery bypass. Followed by Cardiology at [facility]. Doing well without any episodes dizziness, headache, chest pain or shortness of breath. He reports he does get labs done with his chief scientific officer and lipid panel has been excellent (5) History of nephrectomy: Comment: Left -2014 Code(s): Z90.5 - Acquired absence of kidney Plan: Continues to follow Nephrology and undergoes surveillance for renal carcinoma. (6) Obese: Code(s): E66.9 - Obesity, unspecified Qualifiers: Body mass index: BMI 34.0-34.9 Obesity classification: adult class 1 (BMI 30 - 34.9) Obesity type: due to excess calories Serious obesity comorbidity presence: without serious comorbidity Qualified Code(s): E66.09 - Other obesity due to excess calories; Z68.34 - Body mass index [BMI] 34.0-34.9, adult Plan: Patient does understand his BMI is above 30 will continue working on being more physically active and adapting to better eating habits to reduce his weight. (7) CEFERINO (generalized anxiety disorder): Code(s): F41.1 - Generalized anxiety disorder Plan: Patient reports his anxiety is well controlled (8) Pulmonary nodule: Code(s): R91.1 - Solitary pulmonary nodule Plan: Noted to have incidental Octavia of a 7 mm nodule on the lungs on recent CT abdomen pelvis. Will follow this nodule in a years time due to his personal history of cancer. Orders: Orders CT chest w IV con 11 Months R91.1 - Solitary pulmonary nodule Lipid Panel 10/29/22 I25.118 - Atherosclerotic heart disease of [place] coronary artery with other forms of angina pectoris Comprehensive [place]. Panel Fast 10/29/22 I25.118 - Atherosclerotic heart disease of [place] coronary artery with other forms of angina pectoris TSH reflex Free T4 10/29/22 N52.9 - Male erectile dysfunction, unspecified Microalbumin, Random (w Creat) 10/29/22 I10 - Essential (primary) hypertension Coding Level of Care Code Est Pt Prev Care 40-64y([id number]) Diagnoses Annual physical exam Z00.00 HLD (hyperlipidemia) E78.2 Hyperlipidemia type: mixed hyperlipidemia HTN (hypertension) I10 Hypertension type: essential hypertension CAD (coronary artery disease) I25.118 Associated angina: with stable angina Coronary Disease-Associated Artery/Lesion type: [place] artery [place] vs. transplanted heart: [place] heart History of nephrectomy Z90.5 Obese E66.09; Z68.34 Body mass index: BMI 34.0-34.9 Obesity classification: adult class 1 (BMI 30 - 34.9) Obesity type: due to excess calories Serious obesity comorbidity presence: without serious comorbidity CEFERINO (generalized anxiety disorder) F41.1 Pulmonary nodule R91.1 Additional Codes CEFERINO-7 Assessment Billing - CEFERINO-7 Assessment Tool: CEFERINO-7 Assessment [id number] ([id number])
== END 2022-10-29 14:11 | disposition home or self-care (01) ==
PROVIDERS: PCP Physician Assistant; Visit Provider Physician Assistant
DX: Z00.00 Encounter for general adult medical examination without abnormal findings (principal); I10 Essential (primary) hypertension; E66.09 Other obesity due to excess calories; Z68.34 Body mass index [BMI] 34.0-34.9, adult; Z90.5 Acquired absence of kidney; I25.118 Atherosclerotic heart disease of native coronary artery with other forms of angina pectoris; E78.2 Mixed hyperlipidemia; F41.1 Generalized anxiety disorder; R91.1 Solitary pulmonary nodule
CPT/HCPCS: 99396

== ENCOUNTER 2023-02-25 10:30 | Outpatient (AMB) | payer OTHER, SELFPAY ==
--- NOTE | 2023-02-25 10:38 | HO.NEPHOV ---
HPI HPI Comments History of Present Illness Details I had the privilege of seeing James in follow-up of his very mild CKD. He had unilateral nephrectomy for a renal mass in 2014. He regularly follows up with Dr. Kendall. He has not had any hematuria, night sweats or urinary symptoms. He has had coronary artery bypass grafting 2 years ago. He is compliant with his medications. He has been having sacral iliac joint pain but avoids nonsteroidal inflammatory medications. He has history of partial adrenalectomy on the same side of nephrectomy. His blood pressure has been at goal. He has history of renal calculi without any recurrence. He maintains good hydration and avoids nonsteroidal anti-inflammatories. He follows up with his analog ic design architect regularly. He has gained some weight. His renal functions have been stable. He does not have any proteinuria [facility] Medical History (Updated 02/26/23 @ 06:09 by Baudilio Ku MD) HTN (hypertension) Chronic pain syndrome Fracture of lumbar spine Pelvic hematoma in male Compression fracture of T11 vertebra Compression fracture of T10 vertebra Erectile dysfunction Anxiety Arthritis Elevated cholesterol Hx of renal cell cancer Arthritis of left shoulder region Arthritis of right shoulder region Surgical History H/O two vessel coronary artery bypass graft History of vasectomy History of left inguinal hernia repair Hx of colonoscopy (~2010) History of shoulder surgery History of shoulder surgery History of nephrectomy Family History Father Diabetes Heart problem Mother No problems noted. 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 Cognitive needs: No Hearing needs: No Vision needs: No Vital Signs 02/25/23 10:39 Height 6 ft Weight 239 lb 8 oz BMI 32.5 BP 130/70 Blood Pressure Location Rt brachial Position Sitting Pulse 61 Pulse Source Pulse Oximeter Physical Exam Vital Signs: Last Vital Signs Pulse 61 02/25/23 10:39 BP 130/70 02/25/23 10:39 BMI result Body Mass Index 32.5 Const General: comfortable and no acute distress Orientation/consciousness: patient oriented x3 HEENT Head: Yes normocephalic Mouth: Normal oral and palatal mucosa present Eyes EOM: EOMs intact bilaterally Neck Neck: Yes supple Resp Auscultation: clear to auscultation bilaterally Cardio Jugular venous distension: no JVD Rate: regular rate GI Palpation (GI): Soft to palpation Auscultation: normal bowel sounds General: Yes no CVA tenderness Back/Spine/Pelvis Back: no CVA tenderness Skin General skin exam: no rashes or lesions noted Neuro General: patient oriented x3 and moves all extremities Extrem General: Yes no pedal edema Assessment & Plan Assessment & Plan (1) History of nephrectomy: Comment: Left -2014 Code(s): Z90.5 - Acquired absence of kidney (2) HTN (hypertension): Code(s): I10 - Essential (primary) hypertension Qualifiers: Hypertension type: essential hypertension Qualified Code(s): I10 - Essential (primary) hypertension (3) CKD (chronic kidney disease) stage 2, GFR 60-89 ml/min: Code(s): N18.2 - Chronic kidney disease, stage 2 (mild) (4) Nephrolithiasis: Code(s): N20.0 - Calculus of kidney (5) CAD (coronary artery disease) of artery bypass graft: Code(s): I25.810 - Atherosclerosis of coronary artery bypass graft(s) without angina pectoris Qualifiers: [place] vs. transplanted heart: [place] heart Associated angina: without angina Qualified Code(s): I25.810 - Atherosclerosis of coronary artery bypass graft(s) without angina pectoris Plan James has had left nephrectomy with partial adrenalectomy for a renal tumor in 2014. His last serum creatinine was 1.3. He is not known to have any proteinuria. His blood pressure has been at goal. He is not on any KEKE inhibitor now. He is at risk for hyper filtration. He has history of coronary artery bypass grafting. He has some statins, Plavix as well as metoprolol. He takes methotrexate once a week. He has not had any renal calculi. He follows up with Dr. Kendall and his analog ic design architect. His urine output is good. He avoids nonsteroidal anti-inflammatory medications. He maintains good hydration. I did not make any medication changes today. Follow-up blood work and urine studies were ordered. Time spent for retrieval of data, patient encounter and documentation 31 minutes. Answered all questions. Follow-up given. Orders: Orders Electrolytes 02/25/23 I10 - Essential (primary) hypertension, Z90.5 - Acquired absence of kidney Blood Urea Nitrogen 02/25/23 I10 - Essential (primary) hypertension, Z90.5 - Acquired absence of kidney Creatinine 02/25/23 I10 - Essential (primary) hypertension, Z90.5 - Acquired absence of kidney Protein Creatinine Ratio, Ur 02/25/23 I10 - Essential (primary) hypertension, Z90.5 - Acquired absence of kidney Coding Level of Care Code Est Pt Level 4 ([id number]) Diagnoses History of nephrectomy Z90.5 Essential hypertension I10 Hypertension type: essential hypertension CKD (chronic kidney disease) stage 2, GFR 60-89 ml/min N18.2 Nephrolithiasis N20.0 Coronary artery disease involving coronary bypass graft of [place] heart without angina pectoris I25.810 [place] vs. transplanted heart: [place] heart Associated angina: without angina
[2023-02-25 10:39] VITALS: BP 130/70; PULSE 61; BMI 32.5
== END 2023-02-25 11:17 | disposition home or self-care (01) ==
PROVIDERS: PCP Physician Assistant; Visit Provider Internal Medicine Nephrology
DX: Z90.5 Acquired absence of kidney (principal); I12.9 Hypertensive chronic kidney disease with stage 1 through stage 4 chronic kidney disease, or unspecified chronic kidney disease; N18.2 Chronic kidney disease, stage 2 (mild); N20.0 Calculus of kidney; I25.810 Atherosclerosis of coronary artery bypass graft(s) without angina pectoris
CPT/HCPCS: 99214

== ENCOUNTER → 2023-02-25 10:30 | Outpatient (BNVA) | payer OTHER, SELFPAY | PROVIDERS: PCP Physician Assistant; Visit Provider Internal Medicine Nephrology ==

== ENCOUNTER 2023-05-01 08:28 | Outpatient (AMB) | payer OTHER, SELFPAY ==
[2023-05-01 08:31] VITALS: BP 130/84; PULSE 80; O2SAT 96; BMI 30.5
--- NOTE | 2023-05-01 08:31 | A.OFFPC_ITS ---
Vital Signs 05/01/23 08:31 Height 6 ft Weight 225 lb BMI 30.5 BP 130/84 Blood Pressure Location Lt brachial Position Sitting Pulse 80 Pulse Source Pulse Oximeter Pulse Oximetry (%) 96 Oxygen Delivery Method Room Air Intake Visit Reasons: f/u HTN/ CAD Intake Note: Patient is here to follow up on HTN/CAD Narcotics And [employer] Detective Required: No Allergies Penicillins [PENICILLINS] Allergy (Intermediate, Verified 05/01/23 08:50) RASH Medication List - Last Reconciled 05/01/23 by Franklin Beck PA-C amlodipine 2.5 mg PO DAILY clopidogrel 75 mg PO DAILY diazepam 10 mg PO BEDTIME 30 days ezetimibe 1 tab PO DAILY folic acid 1 mg PO DAILY methotrexate sodium 10 mg PO QWEEK metoprolol succinate ER 50 mg PO DAILY oxycodone-acetaminophen 10-325 mg 1 tab PO Q6H PRN 4 days rosuvastatin 1 tab PO DAILY Tobacco use date assessed: 05/01/23 Dental Screening Dental Screen Date: 05/01/23 HPI f/u HTN/ CAD HPI Details James is a 62-year-old male here today for follow-up visitx.? Patient's past medical history significant for hyperlipidemia, CAD ( status post bypass graft 2021) ? psoriasis, chronic shoulder pain, history renal cell carcinoma, hypertension, obesity. Concern--> (history of renal cell carcinoma status post total nephrectomy) : Followed by Urology, complained of s an episode gross hematuria and will be getting CT of chest, Abd pelvis in near future. Has had no further episodes of gross hematuria . Also has been experiencing some GERD like symptoms. . CHRONIC MEDICAL CONDITIONS--> Coronary artery disease:? Interval history--> Patient is status post coronary artery bypass graft.? He did have a small pleural effusion while in hospital.? He was started on Lasix 20 mg daily for 5 days.? He was also started on iron supplementation for 2 weeks. He was also given lidocaine patch to use on his chest at at bedtime. His amiodarone dose was reduced to 200 mg daily.? He was to stay on aspirin and Plavix. .. Sciatica : continues to use p.r.n. oxycodone for lower back pain. He does stretch on a daily basis. He does see flow specialist and has received an injection which did temporarily work on reducing his sciatic pain ? . ? Status post nephrectomy: Had renal carcinoma--> Most recent creatinine at 1.5. Continues to follow nephrology. ? .. ? Hypertension: Patient has been compliant with his medication , blood pressure on the low side today.? Anticipate blood pressure normalizing after off of Lasix. ? .. ? Plaque psoriasis: patient is followed by dermatology and continues to use?methotrexate. ? [facility] Medical History (Updated 05/05/23 @ 07:08 by Franklin Beck PA-C) HTN (hypertension) Chronic pain syndrome Fracture of lumbar spine Pelvic hematoma in male Compression fracture of T11 vertebra Compression fracture of T10 vertebra Erectile dysfunction Anxiety Arthritis Elevated cholesterol Hx of renal cell cancer Arthritis of left shoulder region Arthritis of right shoulder region Surgical History H/O two vessel coronary artery bypass graft History of vasectomy History of left inguinal hernia repair Hx of colonoscopy (~2010) History of shoulder surgery History of shoulder surgery History of nephrectomy Family History Father Diabetes Heart problem Mother No problems noted. 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 1. Little interest or pleasure in doing things: not at all 2. Feeling down, depressed, or hopeless: not at all 3. Trouble falling or staying asleep, or sleeping too much: not at all 4. Feeling tired or having little energy: not at all 5. Poor appetite or overeating: not at all 6. Feeling bad about yourself - or that you are a failure or have let yourself or your family down: not at all 7. Trouble concentrating on things, such as reading the newspaper or watching television: not at all 8. Moving or speaking so slowly that other people could have noticed. Or the opposite - being so fidgety or restless that you have been moving around a lot more than usual: not at all 9. Thoughts that you would be better off or of hurting yourself in some way: not at all Total score: 0 Depression Screening Interpretation: Negative Depression Screening Done: Yes 61297 - PHQ-9 Billing: Yes Source: Developed by Drs. Negro Ospina, Delilah Stewart, Noel Patterson and colleagues, with an educational mandy from [employer]. Thrive Questionnaire Date Thrive assessed: 05/01/23 I am a: Patient What is your living situation today?: I have a steady place to live Within the past 12 months, did the food you bought not last and you didn't have the money to get more?: Never true Within the past 12 months, did you worry whether your food would run out before you got money to buy more?: Never true Do you have trouble paying for medicines?: No Do you have trouble getting transportation to medical appointments?: No Do you have trouble paying your heating and electricity bill?: No Do you have trouble taking care of your child, family member or friend?: No Do you have trouble with day-to-day activities such as bathing, preparing meals, shopping, managing finances, etc.?: No Are you currently unemployed and looking for a job?: No Are you interested in more education?: No Please select the resources that you would like help with: None THRIVE Score: 0 AUDIT C Alcohol Use Questionnaire (AUDIT-C) 1. How often do you have a drink containing alcohol?: 2-3 times a week 2. How many drinks containing alcohol do you have on a typical day when you are drinking?: 1 or 2 3. How often do you have six or more drinks on one occasion?: Never Total Score: 3 CEFERINO-7 AMB Questionnaire CEFERINO-7 Date CEFERINO - 7 assessed: 05/01/23 Source: Developed by Drs. Negro Ospina, Delilah Stewart, Noel Patterson and colleagues, with an educational mandy from [employer]. Review of Systems Const Denies headache(s) Eyes Denies loss of vision ENT Denies vertigo, Denies dizziness, Denies headache(s) and Denies sore throat Card Denies chest pain, Denies leg edema and Denies lightheadedness Resp Denies cough, Denies hemoptysis and Denies wheezing GI Denies abdominal pain, Denies melena, Denies constipation, Denies diarrhea and Denies vomiting Denies dysuria, Denies urinary frequency and Denies urinary urgency Musc Denies arthralgias, Denies joint swelling, Denies numbness and Denies tingling Neuro Denies Abnormal speech present, Denies behavioral changes, Denies vertigo, Denies dizziness, Denies headache(s), Denies loss of vision, Denies memory loss, Denies numbness and Denies tingling Psych Denies anxiety, Denies behavioral changes, Denies depression, Denies memory loss and Denies panic attacks Leo/Lymph Denies easy bleeding and Denies easy bruising Aller/Immun Denies wheezing Physical exam (Primary Care) Vital Signs: Last Vital Signs Pulse 80 05/01/23 08:31 BP 130/84 05/01/23 08:31 Pulse Ox 96 05/01/23 08:31 Oxygen Delivery Method Room Air 05/01/23 08:31 BMI result Body Mass Index 30.5 Tobacco/Smoking Status: Tobacco use Status Tobacco use date assessed 05/01/23 05/01/23 08:37 Patient Tobacco Use Status Former Tobacco user 05/01/23 08:37 Tobacco use type Cigar 05/01/23 08:37 e-Cigarette/Vaping Use Never Used 05/01/23 08:37 PHQ-9: PHQ-9 Score PHQ-9: Total score 0 05/01/23 08:52 Depression Screening Interpretation: Negative Thrive Assessment: Date of Thrive Assessment Date Thrive assessed 05/01/23 05/01/23 08:37 Const General: healthy appearing, no acute distress, alert and awake Nutritional Appearance: well nourished Orientation/consciousness: oriented to person, oriented to place and oriented to time HENMT Ears: TM's normal bilaterally General nose exam: Normal nasal mucous membranes and turbinates present Eyes Conjunctivae: conjunctivae normal Sclerae: sclerae normal Pupils: Equal, round and reactive pupils present Neck Neck: Yes no lymphadenopathy and Yes no JVD Thyroid: Thyroid normal Carotids: no bruits Resp Effort & Inspection: normal respiratory effort and not tachypneic Auscultation: no crackles, no rales, no rhonchi and no wheezes Cardio Rate: regular rate Rhythm: regular rhythm Heart sounds: no murmurs and normal S1 and S2 GI Palpation (GI): Soft to palpation, nontender, no hepatomegaly and no splenomegaly Auscultation: normal bowel sounds Skin General skin exam: no rashes or lesions noted and dry skin Neuro General: oriented to person, oriented to place and oriented to time Cranial nerves: Yes Equal, round and reactive pupils present Speech: No Abnormal speech present Gait exam (Neuro): Normal gait present Motor exam (neuro): no tremor noted Extrem Right upper extremity: full ROM Left upper extremity: full ROM Right lower extremity: full ROM; no edema Left lower extremity: full ROM; no edema Psych Mental Status: mental status grossly normal Speech and movement: Normal speech and movement present Affect: normal affect Attitude: cooperative Thought process: Normal thought process present Assessment and Plan Assessment & Plan (1) HLD (hyperlipidemia): Code(s): E78.5 - Hyperlipidemia, unspecified Qualifiers: Hyperlipidemia type: mixed hyperlipidemia Qualified Code(s): E78.2 - Mixed hyperlipidemia Plan: Patient continues on high-dose statin therapy with adjunctive Zetia. Does have a coronary artery disease thus at goal LDL to be optimally below 70 (2) HTN (hypertension): Code(s): I10 - Essential (primary) hypertension Qualifiers: Hypertension type: essential hypertension Qualified Code(s): I10 - Essential (primary) hypertension Plan: Patient's blood pressure acceptable today in office. Will continue current dose of metoprolol (3) CAD (coronary artery disease): Code(s): I25.10 - Atherosclerotic heart disease of [place] coronary artery without angina pectoris Qualifiers: Associated angina: with stable angina Coronary Disease-Associated Artery/Lesion type: [place] artery [place] vs. transplanted heart: [place] heart Qualified Code(s): I25.118 - Atherosclerotic heart disease of [place] coronary artery with other forms of angina pectoris Plan: Patient is status post coronary artery bypass. Followed by Cardiology at [facility]. Doing well without any episodes dizziness, headache, chest pain or shortness of breath. He reports he does get labs done with his grocery stocker and lipid panel has been excellent (4) History of nephrectomy: Comment: Left -2014 Code(s): Z90.5 - Acquired absence of kidney Plan: Continues to follow Nephrology and undergoes surveillance for renal carcinoma. Did have a recent episode of gross hematuria in his discuss this with urologist. Due to his history of renal cell carcinoma he Will be getting CT of chest, abdomen and pelvis in near future. (5) CEFERINO (generalized anxiety disorder): Code(s): F41.1 - Generalized anxiety disorder Plan: Patient reports his anxiety is well controlled (6) Pulmonary nodule: Code(s): R91.1 - Solitary pulmonary nodule Plan: Noted to have incidentaloma of a 7 mm nodule on the lungs on recent CT abdomen pelvis. Will follow this nodule in a years time due to his personal history of cancer. (7) Gross hematuria: Code(s): R31.0 - Gross hematuria Plan: As above (8) Gastritis: Code(s): K29.70 - Gastritis, unspecified, without bleeding Qualifiers: Gastritis type: unspecified gastritis Chronicity: acute Gastritis bleeding: without bleeding Qualified Code(s): K29.00 - Acute gastritis without bleeding Plan: Does report recently having some signs symptoms of heartburn. He will try to make some dietary modifications and temporarily use omeprazole for his GERD symptoms Medications: New omeprazole 20 mg PO DAILY 30 days 30 caps 0RF K29.70 - Gastritis, unspecified, without bleeding Refilled oxycodone-acetaminophen 10-325 mg Only to be used for pain scale 8-10 . Partial Fill upon patient request. 1 tab PO Q6H 4 days PRN 16 tabs 0RF pain S32.009A - Unspecified fracture of unspecified lumbar vertebra, initial encounter for closed fracture Coding Level of Care Code Est Pt Level 4 (74186) Diagnoses Mixed hyperlipidemia E78.2 Hyperlipidemia type: mixed hyperlipidemia Essential hypertension I10 Hypertension type: essential hypertension Coronary artery disease of [place] artery of [place] heart with stable angina pectoris I25.118 Associated angina: with stable angina Coronary Disease-Associated Artery/Lesion type: [place] artery [place] vs. transplanted heart: [place] heart History of nephrectomy Z90.5 CEFERINO (generalized anxiety disorder) F41.1 Pulmonary nodule R91.1 Gross hematuria R31.0 Acute gastritis without hemorrhage, unspecified gastritis type K29.00 Gastritis type: unspecified gastritis Chronicity: acute Gastritis bleeding: without bleeding
== END 2023-05-01 09:19 | disposition home or self-care (01) ==
PROVIDERS: PCP Physician Assistant; Visit Provider Physician Assistant
DX: E78.2 Mixed hyperlipidemia (principal); I10 Essential (primary) hypertension; I25.118 Atherosclerotic heart disease of native coronary artery with other forms of angina pectoris; Z90.5 Acquired absence of kidney; F41.1 Generalized anxiety disorder; R91.1 Solitary pulmonary nodule; R31.0 Gross hematuria; K29.00 Acute gastritis without bleeding
CPT/HCPCS: 99214

== ENCOUNTER 2023-09-24 06:05 | Outpatient (REF) | payer OTHER, SELFPAY ==
[2023-09-24 06:24] LABS: MANUAL DIFF FLAG NO
[2023-09-24 08:08] LABS: Basophils Percent Auto 0.3 % (0-2); Eosinophils Absolute Auto 0.1 X10*3/uL (0.0-0.4); Hematocrit 42.9 % (42.0-52.0); Hemoglobin 15.1 g/dl (14.0-18.0); Imm Gran Abs Auto 0.01 X10*3/uL (0.00-0.03); Imm Gran Pct Auto 0.1 % (0.0-0.4); Lymphocytes Absolute Auto 1.9 X10*3/uL (1.2-4.9); Lymphocytes Percent Auto 25.8 % (20-40); Mean Corpuscular HGB Conc 35.2 g/dl (31.0-36.0); Mean Corpuscular Hemoglobin 34.2 pg (27.0-33.0); Mean Corpuscular Volume 97.3 fL (80.0-98.0); Mean Platelet Volume 11.5 fL (9.4-12.4); Monocytes Absolute Auto 0.8 X10*3/uL (0.1-1.2); Neutrophils Absolute Auto 4.5 x10*3/uL (2.0-8.3); Neutrophils Percent Auto 61.8 % (45-73); Platelet Count 126 X10*3/uL (160-400); Red Blood Count 4.41 X10*6/uL (4.60-5.80); Red Cell Distribution Width 13.5 % (11.0-16.0); White Blood Count 7.2 X10*3/uL (4.8-10.8)
[2023-09-24 08:20] LABS: Alanine Aminotransferase 28 U/L (0-40); Albumin Level 4.2 g/dL (3.5-5.0); Alkaline Phosphatase 89 U/L (39-117); Anion Gap 14 (12-20); Aspartate Amino Transferase 35 U/L (5-37); Bilirubin Total 0.5 mg/dL (0.0-1.0); Blood Urea Nitrogen 16 mg/dL (9-16); Calcium 9.7 mg/dL (8.4-10.2); Carbon Dioxide 25 mmol/L (22-29); Chloride 108 mmol/L (96-108); Cholesterol 132 mg/dL (<200); Estimated Glomerular Filt Rate 54; Glucose Fasting 102 mg/dL (60-99); HDL Cholesterol 42 mg/dL (>40); LDL Cholesterol Calculated 60 mg/dL (<100); Potassium 4.3 mmol/L (3.3-5.1); Sodium 143 mmol/L (135-145); Total Protein 6.7 g/dL (6.5-8.0); Triglycerides 152 mg/dL (<150)
[2023-09-24 08:23] LABS: Creatinine Urine 192.82 mg/dL; Microalbum/Creatinine Ratio Ur 12.4 ug/mg cr (<30)
[2023-09-24 08:46] LABS: TSH reflex Free T4 1.61 uIU/mL (0.32-4.0)
[2023-09-27 01:48] LABS: TS Negative Control Passed; TS Panel A 1; TS Panel B 1; TS Positive Control Passed; TSpotTB Negative (Negative)
== END 2023-09-24 06:06 | disposition home or self-care (01) ==
LOC: HO.LAB 06:05
PROVIDERS: Dermatology; PCP Physician Assistant; Visit Provider Physician Assistant
DX: L40.0 Psoriasis vulgaris (principal); Z79.899 Other long term (current) drug therapy; I25.118 Atherosclerotic heart disease of native coronary artery with other forms of angina pectoris; N52.9 Male erectile dysfunction, unspecified; I10 Essential (primary) hypertension
CPT/HCPCS: 36415; 80053; 80061; 82043; 82570; 84443; 85025; 86481

== ENCOUNTER 2023-12-31 10:26 | Outpatient (AMB) | payer OTHER, SELFPAY ==
--- NOTE | 2023-12-31 10:33 | A.OFFPC_ITS ---
Vital Signs 12/31/23 10:39 Height 6 ft Weight 234 lb 6 oz BMI 31.8 BP 126/80 Blood Pressure Location Lt brachial Position Sitting Pulse 80 Pulse Source Pulse Oximeter Pulse Oximetry (%) 98 Oxygen Delivery Method Room Air Intake Visit Reasons: Annual Exam Intake Note: Patient is here today for a physical. 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 Required: No Accompanied by: Self / Same As Patient Allergies Penicillins [PENICILLINS] Allergy (Intermediate, Verified 12/31/23 10:44) RASH Medication List - Last Reconciled 12/31/23 by Franklin Beck PA-C amlodipine 2.5 mg PO DAILY clopidogrel 75 mg PO DAILY diazepam 10 mg PO BEDTIME 30 days ezetimibe 1 tab PO DAILY folic acid 1 mg PO DAILY methotrexate sodium 10 mg PO QWEEK metoprolol succinate ER 50 mg PO DAILY omeprazole 20 mg PO DAILY 30 days oxycodone-acetaminophen 10-325 mg 1 tab PO Q6H PRN 4 days rosuvastatin 1 tab PO DAILY Tobacco use date assessed: 05/01/23 Dental Screening Dental Screen Date: 05/01/23 HPI Annual Exam HPI Details James is a 63-year-old male here today for a routine Annual Physical .? Patient's past medical history significant for hyperlipidemia, CAD ( status post bypass graft 2021) ? psoriasis, chronic shoulder pain, history renal cell carcinoma, hypertension, obesity. Concern--> reports he has been bringing up with acne over his face. He would like to try topical treatment. Has upcoming appointment with business management manager in a few months. History of renal cell carcinoma: (history of renal cell carcinoma status post total nephrectomy) : . Has had no further episodes of gross hematuria . Also has been experiencing some GERD like symptoms. Has had a CT of chest with notable concerning spiculated mass. He underwent a removal of the lung mass that-apparently this is recurrence of his renal cell carcinoma . CHRONIC MEDICAL CONDITIONS--> Coronary artery disease:? Continues to follow cardiology. Continues on Plavix only. Most recent lipid panel showing excellent control of his LDL. .. Sciatica : continues to use p.r.n. oxycodone for lower back pain. He does stretch on a daily basis. He does see computer systems support specialist and has received an injection which did temporarily work on reducing his sciatic pain ? . ? Status post nephrectomy: Had renal carcinoma--> Most recent creatinine at 1.5. Continues to follow nephrology. ? .. ? Hypertension: Patient has been compliant with his medication , blood pressure on the low side today.? Anticipate blood pressure normalizing after off of Lasix. ? .. ? Plaque psoriasis: patient is followed by dermatology and continues to use?methotrexate. ? Colonoscopy: Done in 2020, normal repeat 10 years Vaccines: Up-to-date with COVID vaccine, tetanus vaccine, considering shingles vaccine [facility] Medical History HTN (hypertension) Chronic pain syndrome Fracture of lumbar spine Pelvic hematoma in male Compression fracture of T11 vertebra Compression fracture of T10 vertebra Erectile dysfunction Anxiety Arthritis Elevated cholesterol Hx of renal cell cancer Arthritis of left shoulder region Arthritis of right shoulder region Surgical History H/O two vessel coronary artery bypass graft History of vasectomy History of left inguinal hernia repair Hx of colonoscopy (~2010) History of shoulder surgery History of shoulder surgery History of nephrectomy Family History Father Diabetes Heart problem Mother No problems noted. 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 1. Little interest or pleasure in doing things: not at all 2. Feeling down, depressed, or hopeless: not at all 3. Trouble falling or staying asleep, or sleeping too much: not at all 4. Feeling tired or having little energy: not at all 5. Poor appetite or overeating: not at all 6. Feeling bad about yourself - or that you are a failure or have let yourself or your family down: not at all 7. Trouble concentrating on things, such as reading the newspaper or watching television: not at all 8. Moving or speaking so slowly that other people could have noticed. Or the opposite - being so fidgety or restless that you have been moving around a lot more than usual: not at all 9. Thoughts that you would be better off or of hurting yourself in some way: not at all Total score: 0 Depression Screening Interpretation: Negative Depression Screening Done: Yes 12375 - PHQ-9 Billing: Yes Source: Developed by Drs. Negro Ospina, Delilah Stewart, Noel Patterson and colleagues, with an educational mandy from [employer]. Thrive Questionnaire Date Thrive assessed: 12/31/23 I am a: Patient What is your living situation today?: I have a steady place to live Within the past 12 months, did the food you bought not last and you didn't have the money to get more?: I choose not to answer this question Within the past 12 months, did you worry whether your food would run out before you got money to buy more?: I choose not to answer this question Do you have trouble paying for medicines?: I choose not to answer this question Do you have trouble getting transportation to medical appointments?: I choose not to answer this question Do you have trouble paying your heating and electricity bill?: I choose not to answer this question Do you have trouble taking care of your child, family member or friend?: I choose not to answer this question Do you have trouble with day-to-day activities such as bathing, preparing meals, shopping, managing finances, etc.?: No Are you currently unemployed and looking for a job?: No Are you interested in more education?: No Please select the resources that you would like help with: None Currently or been in a relationship where the following occur: I choose not to answer THRIVE Score: 0 AUDIT C Alcohol Use Questionnaire (AUDIT-C) 1. How often do you have a drink containing alcohol?: 2-3 times a week 2. How many drinks containing alcohol do you have on a typical day when you are drinking?: 3 or 4 3. How often do you have six or more drinks on one occasion?: Never Total Score: 4 CEFERINO-7 AMB Questionnaire CEFERINO-7 Date CEFERINO - 7 assessed: 12/31/23 Feeling nervous, anxious, or on edge: 0 = Not at all Not being able to stop or control worryin = Not at all Worrying too much about different things: 0 = Not at all Trouble relaxin = Not at all Being so restless that it is hard to sit still: 0 = Not at all Becoming easily annoyed or irritable: 0 = Not at all Feeling afraid as if something awful might happen: 0 = Not at all Total CEFERINO-7 score (0-4 normal; 5-9 mild; 10-14 moderate; 15-21 severe): 0 Source: Developed by Drs. Negro Ospina, Delilah Stewart, Noel Patterson and colleagues, with an educational mandy from [employer]. CEFERINO-7 Assessment Billing CEFERINO-7 Assessment Tool: CEFERINO-7 Assessment 41349 Review of Systems Const Denies body aches, Denies chills, Denies excessive sweating, Denies fatigue, Denies fever(s) and Denies headache(s) Eyes Denies blurry vision ENT Denies dysphagia, Denies vertigo, Denies dizziness, Denies headache(s), Denies hearing loss and Denies tinnitus Card Denies chest pain, Denies chest pain with activity, Denies syncope, Denies irregular heart rhythm and Denies dyspnea Resp Denies chest congestion, Denies cough, Denies hemoptysis, Denies dyspnea and Denies wheezing GI Denies abdominal pain, Denies melena, Denies hematochezia, Denies coffee ground emesis, Denies dysphagia, Denies diarrhea, Denies nausea and Denies vomiting Denies difficulty urinating, Denies dysuria, Denies urinary frequency, Denies urinary hesitancy and Denies urinary urgency Musc Denies arthralgias, Denies limited range of motion, Denies muscle cramps and Denies muscle weakness Skin/Breast Denies rash and Denies skin ulcer Neuro Denies Abnormal speech present, Denies confusion, Denies vertigo, Denies dizziness, Denies syncope, Denies headache(s), Denies memory loss and Denies seizure-like activity Psych Denies anxiety, Denies confusion, Denies depression, Denies memory loss, Denies panic attacks and Denies paranoia Endo Denies excessive sweating, Denies fatigue, Denies flushing, Denies polydipsia and Denies polyuria Aller/Immun Denies wheezing Physical exam (Primary Care) Vital Signs: Last Vital Signs Pulse 80 12/31/23 10:39 BP 126/80 12/31/23 10:39 Pulse Ox 98 12/31/23 10:39 Oxygen Delivery Method Room Air 12/31/23 10:39 BMI result Body Mass Index 31.8 Tobacco/Smoking Status: Tobacco use Status Tobacco use date assessed 05/01/23 12/31/23 10:33 Patient Tobacco Use Status Former Tobacco user 12/31/23 10:55 Tobacco use type Cigar 12/31/23 10:55 e-Cigarette/Vaping Use Never Used 12/31/23 10:55 PHQ-9: PHQ-9 Score PHQ-9: Total score 0 12/31/23 11:07 Depression Screening Interpretation: Negative Thrive Assessment: Date of Thrive Assessment Date Thrive assessed 12/31/23 12/31/23 10:39 Currently or been in a relationship where the following occur: I choose not to answer Const General: cooperative, comfortable, no acute distress, alert and awake; No confusion Orientation/consciousness: oriented to person, oriented to place, patient oriented x3 and No confusion HENMT Head: Yes normocephalic Ears: external ears normal and TM's normal bilaterally Face and sinus: No sinus tenderness Mouth: Normal oral and palatal mucosa present and tongue normal Teeth and gingiva: dentition normal and gingiva normal Throat: Yes posterior oropharynx normal, Yes tonsils normal and Yes uvula midline Eyes Conjunctivae: conjunctivae normal Sclerae: sclerae normal Pupils: Equal, round and reactive pupils present EOM: EOMs intact bilaterally Direct Ophthalmoscopy: No no photophobia Neck Neck: Yes no lymphadenopathy, No tender and Yes no JVD Thyroid: Thyroid normal Carotids: no bruits Chest Chest palpation & inspection: no tenderness Resp Effort & Inspection: normal respiratory effort, no audible wheezes, not labored and no stridor Auscultation: no crackles, no rales, no rhonchi and no wheezes Cardio Jugular venous distension: no JVD Rate: regular rate, not bradycardic and not tachycardic Rhythm: regular rhythm Bruits: no carotid bruits Peripheral pulses: Peripheral pulses 2+ throughout GI Inspection: Yes normal to inspection, No abdominal wall ecchymosis and No visible herniation Palpation (GI): Soft to palpation, nontender, no guarding, not rigid and No hepatosplenomegaly present Auscultation: normoactive bowel sounds General: Yes no CVA tenderness Back/Spine/Pelvis Back: no CVA tenderness and No back tenderness Cervical Spine: cervical ROM normal Thoracic/Lumbar Spine: thoracic and lumbar spine normal to inspection, straight leg raise negative bilaterally, No thoraco-lumbar ROM limited and No lumbar spinal tenderness Skin Lesions: no lesions Rashes: no rashes Wounds: no wounds Neuro General: oriented to person, oriented to place, patient oriented x3, CN's II-XI intact bilaterally and No confusion Cranial nerves: Yes Equal, round and reactive pupils present and Yes Normal accommodation reflex present Cognition (Neuro): normal cognition Speech: No Abnormal speech present Gait exam (Neuro): Normal gait present Motor exam (neuro): 5/5 motor strength present throughout Extrem Right upper extremity: full ROM; no cyanosis Left upper extremity: full ROM; no cyanosis Right lower extremity: no edema Left lower extremity: no edema Psych Appearance: grossly normal Mental Status: mental status grossly normal Affect: normal affect Attitude: cooperative Thought process: Normal thought process present Office Procedures Flu Questionnaire Does the patient have a severe egg allergy?: No Immunizations Fluarix Triv [id number] (PF) 45 mcg (15 mcg x 3)/0.5 mL IM syringe Performing Provider: Franklin Beck PA-C [place] [facility] [place] [facility] Documented (not given) by: DOMINGO Fitzpatrick on 12/31/23 10:39 Reason Not Given: Patient Refused Coding Level of Care Code Est Pt Prev Care 40-64y(55296) Diagnoses Annual physical exam Z00.00 Essential hypertension I10 Hypertension type: essential hypertension Mixed hyperlipidemia E78.2 Hyperlipidemia type: mixed hyperlipidemia Acne vulgaris L70.0 Coronary artery disease involving coronary bypass graft of lime heart without angina pectoris I25.810 Associated angina: without angina [place] vs. 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 H/O renal cell carcinoma Z85.528 Somatic dysfunction of left sacroiliac joint M99.04 Additional Codes CEFERINO-7 Assessment Billing - CEFERINO-7 Assessment Tool: CEFERINO-7 Assessment 30823 ([id number]) Assessment & Plan Assessment & Plan (1) Annual physical exam: Code(s): Z00.00 - Encounter for general adult medical examination without abnormal findings Category: Medical Plan: As per HPI (2) HTN (hypertension): Code(s): I10 - Essential (primary) hypertension Category: Medical Qualifiers: Hypertension type: essential hypertension Qualified Code(s): I10 - Essential (primary) hypertension Plan: Patient's blood pressure acceptable today in office. Will continue his current dose of antihypertensive medication with goal blood pressure to remain below 140/90 (3) HLD (hyperlipidemia): Code(s): E78.5 - Hyperlipidemia, unspecified Category: Medical Qualifiers: Hyperlipidemia type: mixed hyperlipidemia Qualified Code(s): E78.2 - Mixed hyperlipidemia Plan: Patient's most recent lipid panel showing excellent control of his total cholesterol and LDL. Goal LDL for this patient to be optimally below 70. (4) Acne vulgaris: Code(s): L70.0 - Acne vulgaris Category: Medical Plan: Patient has been breaking out with facial acne. Will supply patient with skin cleanser to try to clear up acne. Will be following up with Dermatology. (5) CAD (coronary artery disease) of artery bypass graft: Code(s): I25.810 - Atherosclerosis of coronary artery bypass graft(s) without angina pectoris Category: Medical Qualifiers: Associated angina: without angina [place] vs. transplanted heart: lime heart Qualified Code(s): I25.810 - Atherosclerosis of coronary artery bypass graft(s) without angina pectoris Plan: Patient continues to follow cardiology. Continues on Plavix, metoprolol in rosuvastatin. Most recent lipid panel showing excellent control of his total cholesterol and LDL. 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 He continues on surveillance imaging through Oncology and thoracic team (7) H/O renal cell carcinoma: Code(s): Z85.528 - Personal history of other malignant neoplasm of kidney Category: Medical Plan: Patient has a history of total nephrectomy secondary to renal cell carcinoma. Most recent kidney function normal. (8) Somatic dysfunction of left sacroiliac joint: Code(s): M99.04 - Segmental and somatic dysfunction of sacral region Category: Medical Plan: Patient continues to have flare-ups of his S I joint dysfunction. Does use oxycodone on a very limited p.r.n. basis for his pain. Orders: Orders Lipid Panel Today E04.1 - Nontoxic single thyroid nodule Comprehensive [place]. Panel Fast Today N18.2 - Chronic kidney disease, stage 2 (mild) Prostate Specific Antigen Scr Today I10 - Essential (primary) hypertension, Z12.5 - Encounter for screening for malignant neoplasm of prostate Microalbumin, Random (w Creat) Today I10 - Essential (primary) hypertension Complete Blood Count no Diff Today I10 - Essential (primary) hypertension Influenza [id number] Immunization Today Z23 - Encounter for immunization Medications: New benzoyl peroxide 5% 1 appl topical Q OTHER DAY 30 days 227 grams 0RF L70.0 - Acne vulgaris
[2023-12-31 10:39] VITALS: BP 126/80; PULSE 80; O2SAT 98; BMI 31.8
== END 2023-12-31 11:17 | disposition home or self-care (01) ==
PROVIDERS: PCP Physician Assistant; Visit Provider Physician Assistant
DX: Z00.00 Encounter for general adult medical examination without abnormal findings (principal); I10 Essential (primary) hypertension; E78.2 Mixed hyperlipidemia; L70.0 Acne vulgaris; I25.810 Atherosclerosis of coronary artery bypass graft(s) without angina pectoris; D49.1 Neoplasm of unspecified behavior of respiratory system; Z85.528 Personal history of other malignant neoplasm of kidney; M99.04 Segmental and somatic dysfunction of sacral region; Z23 Encounter for immunization

== ENCOUNTER → 2023-12-31 10:26 | Outpatient (BNVA) | payer OTHER, SELFPAY | PROVIDERS: PCP Physician Assistant; Visit Provider Physician Assistant | DX: Z00.00 Encounter for general adult medical examination without abnormal findings (principal); I10 Essential (primary) hypertension; E78.2 Mixed hyperlipidemia; L70.0 Acne vulgaris; I25.810 Atherosclerosis of coronary artery bypass graft(s) without angina pectoris; D49.1 Neoplasm of unspecified behavior of respiratory system; M99.04 Segmental and somatic dysfunction of sacral region; Z85.528 Personal history of other malignant neoplasm of kidney; Z79.02 Long term (current) use of antithrombotics/antiplatelets; Z79.899 Other long term (current) drug therapy; Z28.21 Immunization not carried out because of patient refusal | CPT/HCPCS: 90471; 96127 ==

== ENCOUNTER 2024-02-26 09:53 | Outpatient (AMB) | payer OTHER, SELFPAY ==
--- NOTE | 2024-02-26 10:02 | HO.NEPHOV_ITS ---
Vital Signs 02/26/24 10:05 Height 6 ft Weight 240 lb 2 oz BMI 32.6 BP 110/70 Blood Pressure Location Lt brachial Position Sitting Pulse 63 Pulse Source Pulse Oximeter Pulse Oximetry (%) 96 Oxygen Delivery Method Room Air Intake Visit Reasons: 1Y follow up-[facility] Cdc Associate Required: No Accompanied by: Self / Same As Patient Allergies Penicillins [PENICILLINS] Allergy (Intermediate, Verified 02/26/24 10:04) RASH HPI Comments Details: James was seen in follow-up of his very mild CKD. He had unilateral nephrectomy for a renal mass in 2014. He regularly follows up with Dr. Kendall. He has not had any hematuria, night sweats or urinary symptoms. He has had coronary art sergo bypass grafting 2 years ago. He was found to have a lung mass and underwent surgery to remove it. He is not known to have any metastasis from it . He is compliant with his medications. He has history of partial adrenalectomy on the same side of nephrectomy. His blood pressure has been at goal. He has history of renal calculi without any recurrence. He maintains good hydration and avoids nonsteroidal anti-inflammatories. He follows up with his maritime officer regularly. He has gained some weight. His renal functions have been stable. He does not have any proteinuria PFSH Medical History HTN (hypertension) Chronic pain syndrome Fracture of lumbar spine Pelvic hematoma in male Compression fracture of T11 vertebra Compression fracture of T10 vertebra Erectile dysfunction Anxiety Arthritis Elevated cholesterol Hx of renal cell cancer Arthritis of left shoulder region Arthritis of right shoulder region Surgical History H/O two vessel coronary artery bypass graft History of vasectomy History of left inguinal hernia repair Hx of colonoscopy (~2010) History of shoulder surgery History of shoulder surgery History of nephrectomy Family History Father Diabetes Heart problem Mother No problems noted. 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 Cognitive needs: No Hearing needs: No Vision needs: No Review of Systems Const All systems reviewed & are unremarkable except as noted in HPI and below Physical Exam Vital Signs: Last Vital Signs Pulse 63 02/26/24 10:05 BP 110/70 02/26/24 10:05 Pulse Ox 96 02/26/24 10:05 Oxygen Delivery Method Room Air 02/26/24 10:05 BMI result Body Mass Index 32.6 Const General: comfortable and no acute distress Orientation/consciousness: patient oriented x3 HEENT Head: Yes normocephalic Mouth: Normal oral and palatal mucosa present Eyes EOM: EOMs intact bilaterally Neck Neck: Yes supple Resp Auscultation: clear to auscultation bilaterally Cardio Jugular venous distension: no JVD Rate: regular rate GI Palpation (GI): Soft to palpation Auscultation: normal bowel sounds General: Yes no CVA tenderness Back/Spine/Pelvis Back: no CVA tenderness Skin General skin exam: no rashes or lesions noted Neuro General: patient oriented x3 and moves all extremities Extrem General: Yes no pedal edema Assessment & Plan Assessment & Plan (1) H/O renal cell carcinoma: Code(s): Z85.528 - Personal history of other malignant neoplasm of kidney Category: Medical (2) Nephrolithiasis: Code(s): N20.0 - Calculus of kidney Category: Medical (3) HTN (hypertension): Code(s): I10 - Essential (primary) hypertension Category: Medical Qualifiers: Hypertension type: essential hypertension Qualified Code(s): I10 - Essential (primary) hypertension (4) CKD (chronic kidney disease) stage 2, GFR 60-89 ml/min: Code(s): N18.2 - Chronic kidney disease, stage 2 (mild) Category: Medical (5) History of nephrectomy: Comment: Left -2014 Code(s): Z90.5 - Acquired absence of kidney Category: Surgical Plan James has had left nephrectomy with partial adrenalectomy for a renal tumor in 2014. His last serum creatinine was 1.34. He is not known to have any proteinuria. His blood pressure has been at goal. He is not on any KEKE inhibitor now. He is at risk for hyper filtration. He has history of coronary artery bypass grafting. He has some statins, Plavix as well as metoprolol. He takes methotrexate once a week. He has not had any renal calculi. He follows up with Dr. Kendall and his maritime officer. His urine output is good. He avoids nonsteroidal anti-inflammatory medications. He maintains good hydration. I did not make any medication changes today. Follow-up blood work and urine studies were ordered. Follow-up given Orders: Orders Protein Creatinine Ratio, Ur 1 Year N18.2 - Chronic kidney disease, stage 2 (mild) Creatinine 1 Year N18.2 - Chronic kidney disease, stage 2 (mild) Blood Urea Nitrogen 1 Year N18.2 - Chronic kidney disease, stage 2 (mild) Electrolytes 1 Year N18.2 - Chronic kidney disease, stage 2 (mild) Coding Level of Care Code Est Pt Level 4 (23159) Diagnoses H/O renal cell carcinoma Z85.528 Nephrolithiasis N20.0 Essential hypertension I10 Hypertension type: essential hypertension CKD (chronic kidney disease) stage 2, GFR 60-89 ml/min N18.2 History of nephrectomy Z90.5
[2024-02-26 10:05] VITALS: BP 110/70; PULSE 63; O2SAT 96; BMI 32.6
== END 2024-02-26 10:46 | disposition home or self-care (01) ==
PROVIDERS: PCP Physician Assistant; Visit Provider Internal Medicine Nephrology
DX: Z85.528 Personal history of other malignant neoplasm of kidney (principal); N20.0 Calculus of kidney; I12.9 Hypertensive chronic kidney disease with stage 1 through stage 4 chronic kidney disease, or unspecified chronic kidney disease; N18.2 Chronic kidney disease, stage 2 (mild); Z90.5 Acquired absence of kidney
CPT/HCPCS: 99214

== ENCOUNTER → 2024-02-26 09:53 | Outpatient (BNVA) | payer OTHER, SELFPAY | PROVIDERS: PCP Physician Assistant; Visit Provider Internal Medicine Nephrology ==

== ENCOUNTER 2024-07-28 11:06 | Outpatient (AMB) | payer OTHER, SELFPAY ==
--- NOTE | 2024-07-28 11:10 | A.OFFPC_ITS ---
Vital Signs 07/28/24 11:17 Height 6 ft Weight 216 lb 2 oz BMI 29.3 BP 122/80 Blood Pressure Location Lt brachial Position Sitting Respiration 15 Pulse 55 Pulse Source Pulse Oximeter Temp 97.3 F Temp Source Temporal Artery Scan Pulse Oximetry (%) 97 Oxygen Delivery Method Room Air Intake Visit Reasons: f/u CAD/ HTN Separator Operator Required: No Accompanied by: Self / Same As Patient Allergies Penicillins [PENICILLINS] Allergy (Intermediate, Verified 07/28/24 11:35) RASH Medication List - Last Reconciled 07/28/24 by Franklin Beck PA-C amlodipine 2.5 mg PO DAILY azelaic acid 15% 1 appl topical BID benzoyl peroxide 5% 1 appl topical Q OTHER DAY 30 days clopidogrel 75 mg PO DAILY diazepam 10 mg PO BEDTIME 30 days evolocumab (Repatha SureClick) mg subcut ezetimibe 1 tab PO DAILY folic acid 1 mg PO DAILY methotrexate sodium 10 mg PO QWEEK metoprolol succinate ER 50 mg PO DAILY omeprazole 20 mg PO DAILY 30 days oxycodone-acetaminophen 10-325 mg 1 tab PO Q6H PRN 4 days rosuvastatin 1 tab PO DAILY Tobacco use date assessed: 07/28/24 Dental Screening Dental Screen Date: 07/28/24 Did you have a dental visit in the last 12 months?: Yes Did you have a dental problem in the last 6 months where you did not have access to dental care?: No Was dental information given to patient?: Patient has dentist HPI f/u CAD/ HTN HPI Details James is a 63-year-old male here today for a follow-up visit.? Patient's past medical history significant for hyperlipidemia, CAD ( status post bypass graft 2021) ? psoriasis, chronic shoulder pain, history renal cell carcinoma, hypertension, obesity. History of renal cell carcinoma: (history of renal cell carcinoma status post total nephrectomy) : . Has had no further episodes of gross hematuria . Also has been experiencing some GERD like symptoms. Has had a CT of chest with notable concerning spiculated mass. He underwent a removal of the lung mass that-apparently this is recurrence of his renal cell carcinoma Coronary artery disease:? Continues to follow cardiology. Continues on Plavix only. Most recent lipid panel showing excellent control of his LDL. Now on repatha. and most recent LDL -3 , HDL 46 He has been working on low carbohydrate diet, getting preserved meals on line and working out at the gym several times a week. He has lost weight since last office visit .. Sciatica : continues to use p.r.n. oxycodone for lower back pain. He does stretch on a daily basis. He does see commercial collections specialist and has received an injection which did temporarily work on reducing his sciatic pain ? . ? Status post nephrectomy: Had renal carcinoma--> Most recent creatinine at 1.5. Continues to follow nephrology. ? .. ? Hypertension: Patient has been compliant with his medication , blood pressure on the low side today.? Anticipate blood pressure normalizing after off of Lasix. ? .. ? Plaque psoriasis: patient is followed by dermatology and continues to use?methotrexate. ? PFSH Medical History HTN (hypertension) Chronic pain syndrome Fracture of lumbar spine Pelvic hematoma in male Compression fracture of T11 vertebra Compression fracture of T10 vertebra Erectile dysfunction Anxiety Arthritis Elevated cholesterol Hx of renal cell cancer Arthritis of left shoulder region Arthritis of right shoulder region Surgical History H/O two vessel coronary artery bypass graft History of vasectomy History of left inguinal hernia repair Hx of colonoscopy (~2010) History of shoulder surgery History of shoulder surgery History of nephrectomy Family History Father Diabetes Heart problem Mother No problems noted. 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 1. Little interest or pleasure in doing things: not at all 2. Feeling down, depressed, or hopeless: not at all 3. Trouble falling or staying asleep, or sleeping too much: not at all 4. Feeling tired or having little energy: not at all 5. Poor appetite or overeating: not at all 6. Feeling bad about yourself - or that you are a failure or have let yourself or your family down: not at all 7. Trouble concentrating on things, such as reading the newspaper or watching television: not at all 8. Moving or speaking so slowly that other people could have noticed. Or the opposite - being so fidgety or restless that you have been moving around a lot more than usual: not at all 9. Thoughts that you would be better off or of hurting yourself in some way: not at all Total score: 0 Depression Screening Interpretation: Negative Depression Screening Done: Yes 80628 - PHQ-9 Billing: Yes Source: Developed by Drs. Negro Ospina, Delilah Stewart, Noel Patterson and colleagues, with an educational mandy from [employer]. Thrive Questionnaire Date Thrive assessed: 07/28/24 I am a: Patient What is your living situation today?: I have a steady place to live Within the past 12 months, did the food you bought not last and you didn't have the money to get more?: Never true Within the past 12 months, did you worry whether your food would run out before you got money to buy more?: Often true Do you have trouble paying for medicines?: No Do you have trouble getting transportation to medical appointments?: No Do you have trouble paying your heating and electricity bill?: No Do you have trouble taking care of your child, family member or friend?: No Do you have trouble with day-to-day activities such as bathing, preparing meals, shopping, managing finances, etc.?: No Are you currently unemployed and looking for a job?: No Are you interested in more education?: No Please select the resources that you would like help with: None Currently or been in a relationship where the following occur: No concerns reported THRIVE Score: 1 AUDIT C Alcohol Use Questionnaire (AUDIT-C) 1. How often do you have a drink containing alcohol?: 2-3 times a week 2. How many drinks containing alcohol do you have on a typical day when you are drinking?: 1 or 2 3. How often do you have six or more drinks on one occasion?: Never Total Score: 3 CEFERINO-7 AMB Questionnaire CEFERINO-7 Date CEFERINO - 7 assessed: 07/28/24 Feeling nervous, anxious, or on edge: 0 = Not at all Not being able to stop or control worryin = Not at all Worrying too much about different things: 0 = Not at all Trouble relaxin = Not at all Being so restless that it is hard to sit still: 0 = Not at all Becoming easily annoyed or irritable: 0 = Not at all Feeling afraid as if something awful might happen: 0 = Not at all Total CEFERINO-7 score (0-4 normal; 5-9 mild; 10-14 moderate; 15-21 severe): 0 Source: Developed by Drs. Negro Ospina, Delilah Stewart, Noel Patterson and colleagues, with an educational mandy from [employer]. CEFERINO-7 Assessment Billing CEFERINO-7 Assessment Tool: CEFERINO-7 Assessment 38630 Review of Systems Const Denies headache(s) Eyes Denies loss of vision ENT Denies vertigo, Denies dizziness, Denies headache(s) and Denies sore throat Card Denies chest pain, Denies leg edema and Denies lightheadedness Resp Denies cough, Denies hemoptysis and Denies wheezing GI Denies abdominal pain, Denies melena, Denies constipation, Denies diarrhea and Denies vomiting Denies dysuria, Denies urinary frequency and Denies urinary urgency Musc Denies arthralgias, Denies joint swelling, Denies numbness and Denies tingling Neuro Denies Abnormal speech present, Denies behavioral changes, Denies vertigo, Denies dizziness, Denies headache(s), Denies loss of vision, Denies memory loss, Denies numbness and Denies tingling Psych Denies anxiety, Denies behavioral changes, Denies depression, Denies memory loss and Denies panic attacks Leo/Lymph Denies easy bleeding and Denies easy bruising Aller/Immun Denies wheezing Physical exam (Primary Care) Vital Signs: Last Vital Signs Temp 97.3 F 07/28/24 11:17 Pulse 55 07/28/24 11:17 Resp 15 07/28/24 11:17 BP 122/80 07/28/24 11:17 Pulse Ox 97 07/28/24 11:17 Oxygen Delivery Method Room Air 07/28/24 11:17 BMI result Body Mass Index 29.3 Tobacco/Smoking Status: Tobacco use Status Tobacco use date assessed 07/28/24 07/28/24 11:12 Patient Tobacco Use Status Former Tobacco user 07/28/24 11:12 Tobacco use type Cigar 07/28/24 11:12 e-Cigarette/Vaping Use Never Used 07/28/24 11:12 PHQ-9: PHQ-9 Score PHQ-9: Total score 0 07/28/24 11:50 Depression Screening Interpretation: Negative Thrive Assessment: Date of Thrive Assessment Date Thrive assessed 07/28/24 07/28/24 11:12 Currently or been in a relationship where the following occur: No concerns reported Const General: healthy appearing, no acute distress, alert and awake Nutritional Appearance: well nourished Orientation/consciousness: oriented to person, oriented to place and oriented to time HENMT Ears: TM's normal bilaterally General nose exam: Normal nasal mucous membranes and turbinates present Eyes Conjunctivae: conjunctivae normal Sclerae: sclerae normal Pupils: Equal, round and reactive pupils present Neck Neck: Yes no lymphadenopathy and Yes no JVD Thyroid: Thyroid normal Carotids: no bruits Resp Effort & Inspection: normal respiratory effort and not tachypneic Auscultation: no crackles, no rales, no rhonchi and no wheezes Cardio Rate: regular rate Rhythm: regular rhythm Heart sounds: no murmurs and normal S1 and S2 GI Palpation (GI): Soft to palpation, nontender, no hepatomegaly and no splenomegaly Auscultation: normal bowel sounds Skin General skin exam: no rashes or lesions noted and dry skin Neuro General: oriented to person, oriented to place and oriented to time Cranial nerves: Yes Equal, round and reactive pupils present Speech: No Abnormal speech present Gait exam (Neuro): Normal gait present Motor exam (neuro): no tremor noted Extrem Right upper extremity: full ROM Left upper extremity: full ROM Right lower extremity: full ROM; no edema Left lower extremity: full ROM; no edema Psych Mental Status: mental status grossly normal Speech and movement: Normal speech and movement present Affect: normal affect Attitude: cooperative Thought process: Normal thought process present Immunizations pneumoc 20-lenka conj-dip cr(PF) 0.5 mL IM syringe Performing Provider: Franklin Beck PA-C [facility] Administered by: DOMINGO Fitzpatrick on 07/28/24 11:50 Dose Route Admin Location Dispensed Lot Number Expiration Date NDC [employer] F[employer] 0.5 mL IM Right Deltoid 0.5 mL [id number] 05/15/25 [employer] VIS Given Date VIS Provided VIS Publication Date 07/28/24 Single Vaccine 22 Eligibility Eligibility Date Funding Source Not [facility] Eligible 07/28/24 Private Coding Level of Care Code Est Pt Level 4 (47896) Diagnoses Essential hypertension I10 Hypertension type: essential hypertension Mixed hyperlipidemia E78.2 Hyperlipidemia type: mixed hyperlipidemia Coronary artery disease involving coronary bypass graft of [place] without angina pectoris I25.810 Associated angina: without angina [place] vs. 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 Will continue his current dose of antihypertensive medication with goal blood pressure to remain below 140/90 (2) HLD (hyperlipidemia): Code(s): E78.5 - Hyperlipidemia, unspecified Category: Medical Qualifiers: Hyperlipidemia type: mixed hyperlipidemia Qualified Code(s): E78.2 - Mixed hyperlipidemia Plan: Patient's most recent lipid panel showing excellent control of his total cholesterol and LDL. Goal LDL for this patient to be optimally below 70. (3) CAD (coronary artery disease) of artery bypass graft: Code(s): I25.810 - Atherosclerosis of coronary artery bypass graft(s) without angina pectoris Category: Medical Qualifiers: Associated angina: without angina [place] vs. transplanted heart: [place] heart Qualified Code(s): I25.810 - Atherosclerosis of coronary artery bypass graft(s) without angina pectoris Plan: Patient continues to follow cardiology. Continues on Plavix, metoprolol in rosuvastatin, Repatha. Most recent lipid panel showing excellent control of his total cholesterol and LDL. 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 He continues on surveillance imaging through Oncology and thoracic team (5) H/O renal cell carcinoma: Code(s): Z85.528 - Personal history of other malignant neoplasm of kidney Category: Medical Plan: Patient has a history of total nephrectomy secondary to renal cell carcinoma. Most recent kidney function normal. (6) Somatic dysfunction of left sacroiliac joint: Code(s): M99.04 - Segmental and somatic dysfunction of sacral region Category: Medical Plan: Patient continues to have flare-ups of his S I joint dysfunction. Does use oxycodone on a very limited p.r.n. basis for his pain. (7) Sacroiliitis: Code(s): M46.1 - Sacroiliitis, not elsewhere classified Category: Medical Plan: Continues to try to stay active. Does use low-dose oxycodone on a p.r.n. basis for shoulder and lower back/sacroiliitis Orders: Orders Pneumococcal 20 Immunization 07/28/24 Z23 - Encounter for immunization
[2024-07-28 11:17] VITALS: BP 122/80; PULSE 55; RESP 15; TEMP 36.3; O2SAT 97; BMI 29.3
--- OUTSIDE RECORDS SUMMARY | 2024-07-28 12:12 | XMS_ITS | Clinical Summary ---
Author Organization [facility] Address [address] [place] [address] Care Team Providers Care Community Action Worker Name Role Phone Unavailable Primary Care Provider Unavailabl e Social History Tobacco Use Types Packs/Day Years Used Date Smoking Tobacco: Never Assessed Sex and Gender Information Value Date Recorded Sex Assigned at Not on file Legal Sex Male 8:54 PM EST Gender Identity Not on file Sexual Orientation Not on file Plan of Treatment Health Maintenance Due Date Last Done Comments DTaP,Tdap,and Td Vaccines (1 - Tdap) 08/30/1979 Pneumococcal Vaccine: 50+ Ye ars (1 of 1 - PCV) 2010 Zoster Vaccines (1 of 2) 2010 Cholesterol Screening (Lipid Panel) 04/11/2023 Colorectal Cancer Screening: Colonoscopy 04/11/2023 Depression Screening 04/11/2023 HIV Screening 04/11/2023 Hepatitis C Screening 04/11/2023 Social Influencers of Health Screening 04/11/2023 COVID-19 Vaccine ( - 2023-2 5 season) 2023 Influenza Vaccine (Season Ended) 2024 RSV Immunization Adult Patie nts (1 - 1-dose 75+ series) 08/30/2035 HIB Vaccines Aged Out No longer eligi ble based on patient's age to complete this topic HPV Vaccines Aged Out No longer eligi ble based on patient's age to complete this topic Hepatitis A Vaccines Aged Out No long er eligible based on patient's age to complete this topic Hepatitis B Vaccines Aged Out No long er eligible based on patient's age to complete this topic IPV Vaccines Aged Out No longer eligi ble based on patient's age to complete this topic MMR Vaccines Aged Out No longer eligi ble based on patient's age to complete this topic Meningococcal ACWY Vaccine Aged Out N o longer eligible based on patient's age to complete this topic Meningococcal B Vaccine Aged Out No l onger eligible based on patient's age to complete this topic Pneumococcal Vaccine: Pediat rics (0 to 5 Years) and At-Risk Patients (6 to 64 Years) Aged Out No longer eligible b ased on patient's age to complete this topic RSV Immunization Patients Un cindy 20 months Aged Out No longer eligible b ased on patient's age to complete this topic Varicella Vaccines Aged Out No longer eligible based on patient's age to complete this topic Advance Directives Documents on File Type Date Recorded 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
--- OUTSIDE RECORDS SUMMARY | 2024-07-28 12:12 | XMS_ITS | Clinical Summary ---
Author Organization [facility] Address [address] [facility] [address] [place] [address] Phone Care Team Providers Care Smoking Pipe Coater Name Role Phone Franklin Beck Primary Care Provider [phone] Allergies Active Allergy Reactions Criticality Noted Date Comments Penicillins 01/24/2015 Medications folic acid (FOLVITE) 1 MG tablet Take 1 tablet by mouth 1 (one) time each day Active metoprolol succinate XL (TOPROL XL) 50 MG 24 hr tablet Take 50 mg by mouth 1 (one) time each day 06/04/2021 Active atorvastatin (LIPITOR) 80 MG tablet Take 80 mg by mouth every night 06/04/2021 Active rosuvastatin (CRESTOR) 40 MG tablet Take 40 mg by mouth 1 (one) time each day 12/23/2021 Active ezetimibe (ZETIA) 10 MG tablet Take 10 mg by mouth 1 (one) time each day Active nitroglycerin (NITROSTAT) 0.4 MG SL tablet TAKE 1 TABLET UNDER THE TONGUE EVERY 5 MINUTES NEEDED FOR CHEST PAIN 01/03/2023 Active methotrexate 2.5 MG tablet TAKE SIX PILLS (20MG) ONCE WEEKLY. MAY REDUCE TO 4 PILLS WEEKLY IF WELL CONTROLLED. 12/10/2022 Active diazePAM (VALIUM) 10 MG tablet Take 10 mg by mouth at night if needed 01/03/2023 Active clopidogrel (PLAVIX) 75 MG tablet Take 75 mg by mouth 1 (one) time each day Active Active Problems Problem Noted Date Diagnosed Date Chronic kidney disease stage 2 02/07/2021 Renal stone 02/07/2021 Total nephrectomy 02/07/2021 Resolved Problems Problem Noted Date Diagnosed Date Resolved Date Obese class I 05/22/2021 05/22/2021 Family History Medical History Relation Comments Heart disease Father Relation Status Comments Father Alive Mother Alive Social History Tobacco Use Types Packs/Day Years Used Date Smoking Tobacco: Never Smokeless Tobacco: Never Tobacco Cessation:Counseling Given: No Alcohol Use Standard Drinks/Week Comments Yes 0 (1 standard drink = 0.6 oz pure alcohol) Alcoholic Drinks/day: 1-2 drinks per day Sex and Gender Information Value Date Recorded Sex Assigned at Not on file Legal Sex Male 4:43 PM EST Gender Identity Not on file Sexual Orientation Not on file Last Filed Vital Signs Vital Sign Reading Time Taken Comments Blood Pressure 112/76 01/24/2023 9:15 AM EST Pulse 60 01/24/2023 9:15 AM EST Temperature - - Respiratory Rate - - Oxygen Saturation 97% 01/24/2023 9:15 AM EST Inhaled Oxygen Concentration - - Weight 106 kg (234 lb) 01/24/2023 9:15 AM EST Height 182.9 cm (6') 11/02/2019 12:00 PM EDT Body Mass Index 31.74 11/02/2019 12:00 PM EDT Plan of Treatment Health Maintenance Due Date Last Done Comments Pneumococcal Vaccine: 50+ Ye ars (1 of 2 - PCV) 08/30/1979 Colorectal Cancer Screening: Annual FOBT 2009 Colorectal Cancer Screening: Colonoscopy 2009 Colorectal Cancer Screening: Sigmoidoscopy 2009 Influenza Vaccine (Season Ended) 2024 Hepatitis B Vaccine Aged Out No longe r eligible based on patient's age to complete this topic Insurance [facility] Care Teams Smoking Pipe Coater Relationship Specialty Start Date End Date Franklin Beck PA [address] [place] [address], [address] [place] [address] PCP - General Physician Ditching Machine Operator 02/12/21
== END 2024-07-28 11:53 | disposition home or self-care (01) ==
LOC: HO.HMCH 11:06
PROVIDERS: PCP Physician Assistant; Visit Provider Physician Assistant
DX: I10 Essential (primary) hypertension (principal); E78.2 Mixed hyperlipidemia; I25.810 Atherosclerosis of coronary artery bypass graft(s) without angina pectoris; D49.1 Neoplasm of unspecified behavior of respiratory system; Z85.528 Personal history of other malignant neoplasm of kidney; M99.04 Segmental and somatic dysfunction of sacral region; M46.1 Sacroiliitis, not elsewhere classified

== ENCOUNTER → 2024-07-28 11:06 | Outpatient (BNVA) | payer OTHER, SELFPAY | PROVIDERS: PCP Physician Assistant; Visit Provider Physician Assistant | DX: I10 Essential (primary) hypertension (principal); L40.9 Psoriasis, unspecified; M54.30 Sciatica, unspecified side; E78.2 Mixed hyperlipidemia; I25.810 Atherosclerosis of coronary artery bypass graft(s) without angina pectoris; D49.1 Neoplasm of unspecified behavior of respiratory system; M99.04 Segmental and somatic dysfunction of sacral region; M46.1 Sacroiliitis, not elsewhere classified; Z23 Encounter for immunization; Z85.528 Personal history of other malignant neoplasm of kidney | CPT/HCPCS: 90471; 90677; 96127 ==

== ENCOUNTER 2024-08-05 06:06 | Outpatient (REF) | payer OTHER, SELFPAY ==
--- OUTSIDE RECORDS SUMMARY | 2024-08-05 06:09 | XMS_ITS | Clinical Summary ---
Author Organization [facility] Address [address] [facility] [address] [place] [address] Phone Care Team Providers Care Plate Finisher Name Role Phone Franklin Beck Primary Care Provider [phone] Allergies Active Allergy Reactions Criticality Noted Date [...] patient's age to complete this topic Insurance [facility] Care Teams Plate Finisher Relationship Specialty Start Date End Date Franklin Beck PA [address] [place] [address], [address] [place] [address] PCP - General Physician Generation Engineering Technologist 02/12/21
--- OUTSIDE RECORDS SUMMARY | 2024-08-05 06:09 | XMS_ITS | Clinical Summary ---
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
[2024-08-05 06:24] LABS: MANUAL DIFF FLAG NO
[2024-08-05 07:22] LABS: Basophils Percent Auto 0.6 % (0-2); Eosinophils Absolute Auto 0.1 X10*3/uL (0.0-0.4); Eosinophils Percent Auto 1.5 % (0-4); Hematocrit 42.9 % (42.0-52.0); Hemoglobin 15.1 g/dl (14.0-18.0); Imm Gran Abs Auto 0.01 X10*3/uL (0.00-0.03); Imm Gran Pct Auto 0.2 % (0.0-0.4); Lymphocytes Absolute Auto 1.5 X10*3/uL (1.2-4.9); Lymphocytes Percent Auto 29.6 % (20-40); Mean Corpuscular HGB Conc 35.1 g/dl (31.0-36.0); Mean Corpuscular HGB Conc 35.2 g/dl (31.0-36.0); Mean Corpuscular Hemoglobin 34.2 pg (27.0-33.0); Mean Corpuscular Hemoglobin 34.9 pg (27.0-33.0); Mean Corpuscular Volume 97.5 fL (80.0-98.0); Mean Corpuscular Volume 99.1 fL (80.0-98.0); Mean Platelet Volume 11.4 fL (9.4-12.4); Mean Platelet Volume 11.7 fL (9.4-12.4); Monocytes Absolute Auto 0.6 X10*3/uL (0.1-1.2); Monocytes Percent Auto 12.1 % (2-11); Neutrophils Absolute Auto 2.9 x10*3/uL (2.0-8.3); Platelet Count 119 X10*3/uL (160-400); Red Blood Count 4.33 X10*6/uL (4.60-5.80); Red Blood Count 4.41 X10*6/uL (4.60-5.80); Red Cell Distribution Width 13.1 % (11.0-16.0); Red Cell Distribution Width 13.2 % (11.0-16.0); White Blood Count 5.2 X10*3/uL (4.8-10.8); White Blood Count 5.4 X10*3/uL (4.8-10.8)
[2024-08-05 07:46] LABS: Alanine Aminotransferase 23 U/L (0-40); Albumin Level 4.3 g/dL (3.5-5.0); Alkaline Phosphatase 89 U/L (39-117); Anion Gap 11 (12-20); Aspartate Amino Transferase 38 U/L (5-37); Bilirubin Total 0.7 mg/dL (0.0-1.0); Blood Urea Nitrogen 18 mg/dL (9-16); Calcium 9.6 mg/dL (8.4-10.2); Carbon Dioxide 28 mmol/L (22-29); Chloride 108 mmol/L (96-108); Cholesterol 82 mg/dL (<200); Estimated Glomerular Filt Rate > 60; Glucose Fasting 100 mg/dL (60-99); HDL Cholesterol 45 mg/dL (>40); LDL Cholesterol Calculated 22 mg/dL (<100); Potassium 4.7 mmol/L (3.3-5.1); Sodium 142 mmol/L (135-145); Total Protein 6.8 g/dL (6.5-8.0); Triglycerides 75 mg/dL (<150)
[2024-08-05 07:55] LABS: Alanine Aminotransferase 23 U/L (0-40); Albumin Level 4.3 g/dL (3.5-5.0); Alkaline Phosphatase 91 U/L (39-117); Aspartate Amino Transferase 37 U/L (5-37); Bilirubin Direct 0.3 mg/dL (0.0-0.5); Bilirubin Total 0.7 mg/dL (0.0-1.0); Total Protein 6.7 g/dL (6.5-8.0)
[2024-08-05 08:03] LABS: Creatinine Urine 140.39 mg/dL; Microalbum/Creatinine Ratio Ur 7.1 ug/mg cr (<30)
[2024-08-05 08:12] LABS: Prostate Specific Antigen Scr 1.42 ng/mL (<0.05-4.0)
[2024-08-11 14:28] LABS: Quantiferon TB Gold Plus 1 NEGATIVE (NEGATIVE); TB Test (QFT) Mitogen -Nil >10.00 IU/mL; TB Test (QFT) Nil 0.06 IU/mL
== END 2024-08-05 06:07 | disposition home or self-care (01) ==
LOC: HO.LAB 06:06
PROVIDERS: Absent Provider Dermatology; PCP Physician Assistant; Visit Provider Physician Assistant
DX: Z79.899 Other long term (current) drug therapy (principal); E04.1 Nontoxic single thyroid nodule; I10 Essential (primary) hypertension; N18.2 Chronic kidney disease, stage 2 (mild); Z12.5 Encounter for screening for malignant neoplasm of prostate
CPT/HCPCS: 36415; 80053; 80061; 80076; 82043; 82248; 82570; 84153; 85025; 85027; 86480

== ENCOUNTER 2025-01-31 10:12 | Outpatient (AMB) | payer OTHER, SELFPAY ==
--- NOTE | 2025-01-31 10:17 | A.OFFPC_ITS ---
Vital Signs 01/31/25 10:20 Height 6 ft Weight 219 lb 8 oz BMI 29.8 BP 140/80 H Blood Pressure Location Lt brachial Position Sitting Pulse 50 Pulse Source Pulse Oximeter Temp 97.1 F Temp Source Temporal Artery Scan Pulse Oximetry (%) 98 Oxygen Delivery Method Room Air Intake Visit Reasons: PE Intake Note: Patient is here today for a physical. Cvicu Rn Required: No Electrolysist: Not Required per policy Accompanied by: Self / Same As Patient Allergies Penicillins (PENICILLINS) Allergy (Intermediate, Verified 01/31/25 10:38) RASH Medication List - Last Reconciled 01/31/25 by Franklin Beck PA-C amlodipine 2.5 mg PO DAILY azelaic acid 15% 1 appl topical BID benzoyl peroxide 5% 1 appl topical Q OTHER DAY 30 days clopidogrel 75 mg PO DAILY diazepam 10 mg PO BEDTIME 30 days evolocumab (Repatha SureClick) mg subcut folic acid 1 mg PO DAILY methotrexate sodium 10 mg PO QWEEK metoprolol succinate ER 50 mg PO DAILY omeprazole 20 mg PO DAILY 30 days oxycodone-acetaminophen 10-325 mg 1 tab PO Q6H PRN 4 days rosuvastatin 20 mg PO DAILY Tobacco use date assessed: 01/31/25 Fall risk assessment: No Falls in past year Last assessed Fall Risk: 01/31/25 Dental Screening Dental Screen Date: 07/28/24 HPI PE HPI Details James is a 64-year-old male here today for a an annual physical. ? Patient's past medical history significant for hyperlipidemia, CAD ( status post bypass graft 2021) ? psoriasis, chronic shoulder pain, history renal cell carcinoma, hypertension. . Hyperkalemia-- patient's recent labs done at [facility] noted to be hypokalemic at 5.7 this was done in December of 2024. Will recheck labs Coronary artery disease:? Continues to follow cardiology. Continues on Plavix only. Most recent lipid panel showing excellent control of his LDL. Continues on repatha. and most recent LDL -22 , HDL 46 . His rosuvastatin was reduced to 20 mg and he was taken off of Zetia. He has been working on low carbohydrate diet, getting preserved meals on line and working out at the gym several times a week. He has lost weight since last office visit .. SI joint dysfunction: He has chronic sacroiliac (SI) joint pain following an accident, which has never fully resolved. At times, the pain is severe enough to significantly impair his ability to walk. He has tried physical therapy and had one injection that was not effective. He manages the pain with oxycodone as needed and occasionally requires a prednisone taper for severe exacerbations, most recently prescribed a couple of months ago by another provider. He also takes diazepam. ? . ? Status post nephrectomy: Has a history of renal cell carcinoma--> Most recent creatinine at 1.5. Continues to follow nephrology. ? .. ? Hypertension: Patient has been compliant with his medication , blood pressure on the low side today.? Anticipate blood pressure normalizing after off of Lasix. ? . Colonoscopy: Done in 2020, normal repeat 10 years Vaccines: Up-to-date with COVID vaccine, tetanus vaccine, considering shingles vaccine, Needs flu vaccine PFSH Medical History HTN (hypertension) Chronic pain syndrome Fracture of lumbar spine Pelvic hematoma in male Compression fracture of T11 vertebra Compression fracture of T10 vertebra Erectile dysfunction Anxiety Arthritis Elevated cholesterol Hx of renal cell cancer Arthritis of left shoulder region Arthritis of right shoulder region Surgical History H/O two vessel coronary artery bypass graft History of vasectomy History of left inguinal hernia repair Hx of colonoscopy (~2010) History of shoulder surgery History of shoulder surgery History of nephrectomy Family History Father Diabetes Heart problem Mother No problems noted. 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 Cognitive needs: No Hearing needs: No Vision needs: No Questionnaire Thrive Questionnaire Date Thrive assessed: 07/22/24 I am a: Patient What is your living situation today?: I have a steady place to live Within the past 12 months, did the food you bought not last and you didn't have the money to get more?: Never true Within the past 12 months, did you worry whether your food would run out before you got money to buy more?: Often true Do you have trouble paying for medicines?: No Do you have trouble getting transportation to medical appointments?: No Do you have trouble paying your heating and electricity bill?: No Do you have trouble taking care of your child, family member or friend?: No Do you have trouble with day-to-day activities such as bathing, preparing meals, shopping, managing finances, etc.?: No Are you currently unemployed and looking for a job?: No Are you interested in more education?: No Please select the resources that you would like help with: None Currently or been in a relationship where the following occur: No concerns reported THRIVE Score: 1 CEFERINO-7 AMB Questionnaire CEFERINO-7 Date CEFERINO - 7 assessed: 07/28/24 Source: Developed by Drs. Negro Ospina, Delilah Stewart, Noel Patterson and colleagues, with an educational mandy from Rev. Review of Systems Const Denies body aches, Denies chills, Denies excessive sweating, Denies fatigue, Denies fever(s) and Denies headache(s) Eyes Denies blurry vision ENT Denies dysphagia, Denies vertigo, Denies dizziness, Denies headache(s), Denies hearing loss and Denies tinnitus Card Denies chest pain, Denies chest pain with activity, Denies syncope, Denies irregular heart rhythm and Denies dyspnea Resp Denies chest congestion, Denies cough, Denies hemoptysis, Denies dyspnea and Denies wheezing GI Denies abdominal pain, Denies melena, Denies hematochezia, Denies coffee ground emesis, Denies dysphagia, Denies diarrhea, Denies nausea and Denies vomiting Denies difficulty urinating, Denies dysuria, Denies urinary frequency, Denies urinary hesitancy and Denies urinary urgency Musc Denies arthralgias, Denies limited range of motion, Denies muscle cramps and Denies muscle weakness Skin/Breast Denies rash and Denies skin ulcer Neuro Denies Abnormal speech present, Denies confusion, Denies vertigo, Denies dizziness, Denies syncope, Denies headache(s), Denies memory loss and Denies seizure-like activity Psych Denies anxiety, Denies confusion, Denies depression, Denies memory loss, Denies panic attacks and Denies paranoia Endo Denies excessive sweating, Denies fatigue, Denies flushing, Denies polydipsia and Denies polyuria Aller/Immun Denies wheezing Physical exam (Primary Care) Vital Signs: Last Vital Signs Temp 97.1 F 01/31/25 10:20 Pulse 50 01/31/25 10:20 BP 140/80 H 01/31/25 10:20 Pulse Ox 98 01/31/25 10:20 Oxygen Delivery Method Room Air 01/31/25 10:20 BMI result Body Mass Index 29.8 Tobacco/Smoking Status: Tobacco use Status Tobacco use date assessed 01/31/25 01/31/25 10:24 Patient Tobacco Use Status Former Tobacco user 01/31/25 10:18 Tobacco use type Cigar 01/31/25 10:18 e-Cigarette/Vaping Use Never Used 01/31/25 10:18 Thrive Assessment: Date of Thrive Assessment Date Thrive assessed 07/22/24 01/31/25 10:18 Currently or been in a relationship where the following occur: No concerns reported Const General: cooperative, comfortable, no acute distress, alert and awake; No confusion Orientation/consciousness: oriented to person, oriented to place, patient oriented x3 and No confusion HENMT Head: Yes normocephalic Ears: external ears normal and TM's normal bilaterally Face and sinus: No sinus tenderness Mouth: Normal oral and palatal mucosa present and tongue normal Teeth and gingiva: dentition normal and gingiva normal Throat: Yes posterior oropharynx normal, Yes tonsils normal and Yes uvula midline Eyes Conjunctivae: conjunctivae normal Sclerae: sclerae normal Pupils: Equal, round and reactive pupils present EOM: EOMs intact bilaterally Direct Ophthalmoscopy: No no photophobia Neck Neck: Yes no lymphadenopathy, No tender and Yes no JVD Thyroid: Thyroid normal Carotids: no bruits Chest Chest palpation & inspection: no tenderness Resp Effort & Inspection: normal respiratory effort, no audible wheezes, not labored and no stridor Auscultation: no crackles, no rales, no rhonchi and no wheezes Cardio Jugular venous distension: no JVD Rate: regular rate, not bradycardic and not tachycardic Rhythm: regular rhythm Bruits: no carotid bruits Peripheral pulses: Peripheral pulses 2+ throughout GI Inspection: Yes normal to inspection, No abdominal wall ecchymosis and No visible herniation Palpation (GI): Soft to palpation, nontender, no guarding, not rigid and No hepatosplenomegaly present Auscultation: normoactive bowel sounds General: Yes no CVA tenderness Back/Spine/Pelvis Back: no CVA tenderness and No back tenderness Cervical Spine: cervical ROM normal Thoracic/Lumbar Spine: thoracic and lumbar spine normal to inspection, straight leg raise negative bilaterally, No thoraco-lumbar ROM limited and No lumbar spinal tenderness Skin Lesions: no lesions Rashes: no rashes Wounds: no wounds Neuro General: oriented to person, oriented to place, patient oriented x3, CN's II-XI intact bilaterally and No confusion Cranial nerves: Yes Equal, round and reactive pupils present and Yes Normal accommodation reflex present Cognition (Neuro): normal cognition Speech: No Abnormal speech present Gait exam (Neuro): Normal gait present Motor exam (neuro): 5/5 motor strength present throughout Extrem Right upper extremity: full ROM; no cyanosis Left upper extremity: full ROM; no cyanosis Right lower extremity: no edema Left lower extremity: no edema Psych Appearance: grossly normal Mental Status: mental status grossly normal Affect: normal affect Attitude: cooperative Thought process: Normal thought process present Office Procedures Flu Questionnaire Does the patient have a severe egg allergy?: No Does the patient have severe life threatening allergies?: No Does the patient have a fever or illness today?: No Has the patient ever had Guillain-[place] Syndrome?: No Has the patient ever had any past reaction to a flu shot?: No Immunizations Fluarix [id number] (PF) 45 mcg (15 mcg x 3)/0.5 mL IM syringe Performing Provider: Franklin Beck PA-C [facility] Administered by: Alisa Lira RN on 01/31/25 10:56 Dose Route Admin Location Dispensed Lot Number Expiration Date [facility] Financial Engineer 0.5 mL IM Right Deltoid 0.5 mL [id number] 09/13/25 [id number] [facility] VIS Given Date VIS Provided VIS Publication Date 01/31/25 Single Vaccine 24 Eligibility Eligibility Date Funding Source Not [facility] Eligible 01/31/25 Private Coding Level of Care Code Est Pt Prev Care 40-64y([id number]) Diagnoses Annual physical exam Z00.00 Essential hypertension I10 Hypertension type: essential hypertension Mixed hyperlipidemia E78.2 Hyperlipidemia type: mixed hyperlipidemia Coronary artery disease involving coronary bypass graft of [place] heart without angina pectoris I25.810 [place] vs. transplanted heart: [place] heart Associated angina: without angina H/O renal cell carcinoma Z85.528 Somatic dysfunction of left sacroiliac joint M99.04 Hyperkalemia E87.5 Assessment & Plan Assessment & Plan (1) Annual physical exam: Code(s): Z00.00 - Encounter for general adult medical examination without abnormal findings Category: Medical Plan: as per HPI (2) HTN (hypertension): Code(s): I10 - Essential (primary) hypertension Category: Medical Qualifiers: Hypertension type: essential hypertension Qualified Code(s): I10 - Essential (primary) hypertension Plan: Patient's blood pressure acceptable today in office. Will continue his current dose of antihypertensive medication with goal blood pressure to remain below 140/90 (3) HLD (hyperlipidemia): Code(s): E78.5 - Hyperlipidemia, unspecified Category: Medical Qualifiers: Hyperlipidemia type: mixed hyperlipidemia Qualified Code(s): E78.2 - Mixed hyperlipidemia Plan: Patient's most recent lipid panel showing excellent control of his total cholesterol and LDL. He has been taken off of Zetia and reduce his dose of statin. Goal LDL for this patient to be optimally below 70. (4) CAD (coronary artery disease) of artery bypass graft: Code(s): I25.810 - Atherosclerosis of coronary artery bypass graft(s) without angina pectoris Category: Medical Qualifiers: [place] vs. transplanted heart: [place] heart Associated angina: without angina Qualified Code(s): I25.810 - Atherosclerosis of coronary artery bypass graft(s) without angina pectoris Plan: Patient continues to follow cardiology. Continues on Plavix, metoprolol in rosuvastatin, Repatha. Now on lower dose of rosuvastatin. Most recent lipid panel showing excellent control of his total cholesterol and LDL. Goal LDL to optimally be below 70 (5) H/O renal cell carcinoma: Code(s): Z85.528 - Personal history of other malignant neoplasm of kidney Category: Medical Plan: Patient has a history of total nephrectomy secondary to renal cell carcinoma. Most recent kidney function normal. (6) Somatic dysfunction of left sacroiliac joint: Code(s): M99.04 - Segmental and somatic dysfunction of sacral region Category: Medical Plan: Patient continues to have flare-ups of his S I joint dysfunction. Has done physical therapy and has also gotten injections though have not been effective on reducing his pain.. Does use oxycodone on a very limited p.r.n. basis for his pain. Also during severe flare-ups he does use prednisone taper to help reduce inflam mation in the SI joint. (7) Hyperkalemia: Code(s): E87.5 - Hyperkalemia Category: Medical Plan: Was noted to have a potassium of 5.7 had most recent lab draw done at an outside facility. Will recheck potassium to ensure stable. Orders: Orders Comprehensive [place]. Panel Fast Today I25.810 - Atherosclerosis of coronary artery bypass graft(s) without angina pectoris Lipid Panel Today I25.810 - Atherosclerosis of coronary artery bypass graft(s) without angina pectoris Influenza [id number] Immunization Today Z23 - Encounter for immunization Patient Instructions: Goal: Blood pressure to remain below 140/90, LDL to be optimally below 60 Barriers: Adherence to physical activity and healthy eating habits
[2025-01-31 10:20] VITALS: BP 140/80; PULSE 50; TEMP 36.2; O2SAT 98; BMI 29.8
--- OUTSIDE RECORDS SUMMARY | 2025-01-31 21:15 | XMS_ITS | Clinical Summary ---
Author Organization [address] [facility] Address [address] [place] [address] Phone Care Team Providers Care Weaver Axminster Name Role Phone Franklin Beck Primary Care Provider [phone] Allergies No known active allergies Medications No known medications Encounters Date Type Department Care Team Description 12/07/2024 8:30 AM EDT Consult Orthopedic Surgery [facility] [address] [address] Janes Mckeon DPM Pain in toes of both feet (Primary Dx); Ingrowing nail; Nail dystrophy from Last 3 Months Social History Tobacco Use Types Packs/Day Years Used Date Smoking Tobacco: Never Assessed Sex and Gender Information Value Date Recorded Sex Assigned at Not on file Legal Sex Male 8:54 PM EST Gender Identity Not on file Sexual Orientation Not on file Plan of Treatment Health Maintenance Due Date Last Done Comments Colorectal Cancer Screening: Colonoscopy 1960 Pneumococcal Vaccine: 50+ Years (1 of 1 - PCV) 2010 Zoster Vaccines (1 of 2) 2010 Cholesterol Screening (Lipid Panel) 04/11/2023 HIV Screening 04/11/2023 Hepatitis C Screening 04/11/2023 Social Influencers of Health Screening 04/11/2023 Depression Screening 03/17/2024 COVID-19 Vaccine ( - season) 2024 02/25/2021, 05/23/2020, 05/05/2020 Influenza Vaccine (#1) 2024 , 02/04/2019, 04/23/2017, Additional history exists DTaP,Tdap,and Td Vaccines (2 - Td or Tdap) 05/10/2029 05/10/2019 RSV Immunization Adult Patients (1 - 1-dose 75+ series) 08/30/2035 HIB [...] to complete this topic RSV Immunization Patients Under 20 months Aged Out No longer eligible based on patient's age to complete this topic Varicella Vaccines Aged Out No longer eligible based on patient's age to complete this topic Insurance [facility] Advance Directives Documents on File Type Date Recorded 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
--- OUTSIDE RECORDS SUMMARY | 2025-01-31 21:15 | XMS_ITS | Clinical Summary ---
Author Organization [facility] Address [address] [facility] [address] [place] [id number] Phone Care Team Providers Care Lamp Mechanic Name Role Phone Gage Freeman DO Unavailable [phone] Franklin Beck Primary Care Provider + Allergies Active Allergy Reactions Criticality Noted Date Comments Penicillins 01/24/2015 Medications methotrexate 2.5 MG tabletIndicatio ns:Cancer of kidney, left Take 1 tablet (2.5 mg total) by mouth every 7 days. 5 Active Additional Information Patient taking differently: 20 mgOral Every 7 days, Reported on 01/06/2024 metoprolol succinate (TOPROL-XL) 50 MG 24 hr tablet Take 50 mg by mouth daily. Active rosuvastatin (CRESTOR) 40 MG tablet Take 40 mg by mouth daily. Active folic acid (FOLVITE) 1 MG tablet Take 1 tablet by mouth daily. Active amLODIPine (NORVASC) 2.5 MG tablet Take 2.5 mg by mouth daily. Active clopidogrel (PLAVIX) 75 mg tablet Take 75 mg by mouth daily. Active ubidecarenone (CO Q-10 ORAL) Take 400 mg by mouth daily. Active glucosamine-cho ndroitin 500-400 mg Cap Take 2 capsules by mouth daily. Active oxyCODONE HCl 10 mg Tab Take 10 mg by mouth as needed. 4 Active Active Problems No known active problems Family History Medical History Relation Comments Coronary artery disease Father Alzheimer's disease Mother Relation Status Comments Father Mother Social History Tobacco Use Types Packs/Day Years Used Date Smoking Tobacco: Light Smoker Alcohol Use Standard Drinks/Week Comments Not Asked 0 (1 standard drink = 0.6 oz pur e alcohol) Child or Family Care Answer Date Record ed Do you have problems with on e of the following making it difficult for you to work, study, or receive health care? I choose not to answer 12/30/2023 Education Answer Date Recorded Are you interested in help w ith more adult education (for example, completing high school, GED, job training, learning the [place] language, technical skills, or developing parenting skills)? No 12/30/2023 Are you concerned about learning? Not on file 12/30/2023 No 12/30/2023 Yes 12/30/2023 Food Answer Date Recorded Within the past 6 months we worried whether our food would run out before we got money to buy more. Never True 12/30/2023 Within the past 6 months the food we bought just didn't last and we didn't have enough money to get more. Never True Residential Stability Answer Date Recor ded What is your housing situation today? I have glenn brooks 12/30/2023 Number of times moved in last year Not on file 12/30/2023 Paying for Meds Answer Date Recorded Do you have trouble paying for medicines? No 12/30/2023 Paying Utility Bills Answer Date Record ed Do you have trouble paying your heating or elect ricity bill? No 12/30/2023 Transportation Answer Date Recorded Has the lack of transportati on kept you from medical appointments or from getting medications? No 12/30/2023 Digital Access Answer Date Recorded No 08/12/2022 No 08/12/2022 Reliable internet access at home? Not on file 08/12/2022 Device with a working camera? Not on file Sex and Gender Information Value Date Recorded Sex Assigned at Male 12/22/2023 3:54 PM EDT Legal Sex Male 3:44 PM EDT Gender Identity Male 12/22/2023 3:54 PM EDT Sexual Orientation Straight 12/22/2023 3: 54 PM EDT Last Filed Vital Signs Vital Sign Reading Time Taken Comments Blood Pressure 118/65 01/06/2024 12:16 PM EDT Pulse 62 01/06/2024 12:16 PM EDT Temperature 36.3 C (97.3 F) 01/06/2024 12:16 PM EDT Respiratory Rate 16 01/06/2024 12:1 6 PM EDT Oxygen Saturation 99% 01/06/2024 12: 16 PM EDT Inhaled Oxygen Concentration - - Weight 107.2 kg (236 lb 5.3 oz) 024 12:16 PM EDT Height 181 cm (5' 11.26 ) 01/06/2024 12 :16 PM EDT Body Mass Index 32.72 01/06/2024 12:16 PM EDT Plan of Treatment Health Maintenance Due Date Last Done Comments LIPID PANEL 1960 DEPRESSION SCREENING 1972 SMOKING Hx and SMOKELESS TOBACCO SCREENING 1973 HEPATITIS C SCREENING 1978 HIV ONE-TIME SCREENING (18-65 YEARS) 1978 PNEUMOCOCCAL VACCINES (50+ years) (1 of 2 - PCV) 08/30/1979 ZOSTER VACCINES (1 of 2) 08/30/1979 SCREENING FOR DIABETES 08/30/1995 COLOGUARD 2005 COLONOSCOPY 2005 COLORECTAL CANCER SCREENING 2005 FIT TEST 2005 FOBT 2005 SIGMOIDOSCOPY 2005 VIRTUAL COLONOSCOPY 2005 RSV VACCINE (1 - Risk 50-74 years 1-dose series) 2010 INFLUENZA VACCINE (#1) 2024 , 02/04/2019, 04/23/2017, Additional history exists COVID-19 VACCINE ( season) 2024 02/25/2021, 05/23/2020, 05/05/2020 Adult Td,Tdap Booster 05/10/2029 05/10/2019 HEPATITIS A VACCINES Aged Out No long er eligible based on patient's age to complete this topic HIB VACCINES Aged Out No longer eligi ble based on patient's age to complete this topic IPV VACCINES Aged Out No longer eligi ble based on patient's age to complete this topic MENINGOCOCCAL VACCINES (ACWY) Aged Out No longer eligible based on patient's age to complete this topic MENINGOCOCCAL VACCINES (B) Aged Out N o longer eligible based on patient's age to complete this topic Medical Devices Not on file [place] [address] POS POS [place] [address] [place] [address] [place] [address] [place] [address] [place] [address] Care Teams Lamp Mechanic Relationship Specialty Start Date End Date Franklin Beck PA [address] [place] [address] PCP - General Physician Statistician Theoretical 12/22/23 Gage Freeman DO [address] [place] [address] Referring Physician Internal Medicine 06/29/15 Additional Source Comments The information contained in this document represents components of the legal health record. It is not the complete legal health record.[facility]
== END 2025-01-31 11:05 | disposition home or self-care (01) ==
LOC: HO.HMCH 10:12
PROVIDERS: PCP Physician Assistant; Visit Provider Physician Assistant
DX: Z00.00 Encounter for general adult medical examination without abnormal findings (principal); I10 Essential (primary) hypertension; E78.2 Mixed hyperlipidemia; I25.810 Atherosclerosis of coronary artery bypass graft(s) without angina pectoris; Z85.528 Personal history of other malignant neoplasm of kidney; M99.04 Segmental and somatic dysfunction of sacral region; E87.5 Hyperkalemia; Z23 Encounter for immunization

== ENCOUNTER → 2025-01-31 10:12 | Outpatient (BNVA) | payer OTHER, SELFPAY | PROVIDERS: PCP Physician Assistant; Visit Provider Physician Assistant | DX: Z00.00 Encounter for general adult medical examination without abnormal findings (principal); I25.810 Atherosclerosis of coronary artery bypass graft(s) without angina pectoris; E78.2 Mixed hyperlipidemia; M53.3 Sacrococcygeal disorders, not elsewhere classified; I10 Essential (primary) hypertension; M99.04 Segmental and somatic dysfunction of sacral region; E87.5 Hyperkalemia; Z23 Encounter for immunization; Z79.899 Other long term (current) drug therapy; Z85.528 Personal history of other malignant neoplasm of kidney | CPT/HCPCS: 90471; 90656 ==

== ENCOUNTER 2025-02-15 06:13 | Outpatient (REF) | payer OTHER, SELFPAY ==
--- OUTSIDE RECORDS SUMMARY | 2025-02-15 06:16 | XMS_ITS | Clinical Summary ---
Author Organization [facility] Address [address] [employer] [facility] [address] [place] [phone] Phone Care Team Providers Care Customer Leader Name Role Phone Gage Freeman DO Unavailable [phone] Franklin Beck Primary Care Provider + Allergies [...] high school, GED, job training, learning the Syri[place] language, technical skills, or developing parenting skills)? [...] topic Medical Devices Not on file Insurance [place] [address] [address] [place] [address] [place] [address] [place] [address] POS [place] POS Care Teams Customer Leader Relationship Specialty Start Date End Date Franklin Beck PA [address] [place] [address] PCP - General Physician Red Mud Thickener Operator 12/22/23 Gage Freeman DO [address] [place] [address] Referring Physician Internal Medicine 06/29/15 Additional Source Comments The information contained in this document represents components of the legal health record. It is not the complete legal health record.[facility]
[2025-02-15 07:44] LABS: Alanine Aminotransferase 26 U/L (0-40); Albumin Level 4.7 g/dL (3.5-5.0); Alkaline Phosphatase 77 U/L (39-117); Anion Gap 13 (12-20); Aspartate Amino Transferase 47 U/L (5-37); Blood Urea Nitrogen 21 mg/dL (9-16); Calcium 9.9 mg/dL (8.4-10.2); Carbon Dioxide 27 mmol/L (22-29); Chloride 105 mmol/L (96-108); Cholesterol 125 mg/dL (<200); Estimated Glomerular Filt Rate 53; HDL Cholesterol 48 mg/dL (>40); Potassium 4.5 mmol/L (3.3-5.1); Sodium 140 mmol/L (135-145); Total Protein 7.1 g/dL (6.5-8.0); Triglycerides 198 mg/dL (<150)
[2025-02-15 08:01] LABS: Total Protein Urine Random < 7 mg/dL (<12)
== END 2025-02-15 06:14 | disposition home or self-care (01) ==
LOC: HO.LAB 06:13
PROVIDERS: Absent Provider Physician Assistant; PCP Physician Assistant; Visit Provider Internal Medicine Nephrology
DX: N18.2 Chronic kidney disease, stage 2 (mild) (principal); I25.810 Atherosclerosis of coronary artery bypass graft(s) without angina pectoris
CPT/HCPCS: 36415; 80053; 80061; 82570; 84156